=== PATIENT | female | born 1930 | race Caucasian/White ===

== ENCOUNTER 2016-07-20 10:17 | Inpatient (IN) | payer MEDICARE, OTHER ==
[~2016-07-20] VITALS: Ht 157.5 cm; Wt 116.7 kg
[~2016-07-20 10:17] MED LIST: ACET325T33 PO; ALBU2.5V3 NEB; ASC500 PO; ATOR40TA68 PO; BENZ1LOZ52 MM; BISA10SU58 PR; BUDE1AMP IH; BUDE6HFA IH; CEPH-443 PO; CRAN450T7 PO; DOCU-159 PO; FLUC100T PO; FURO40TA4 PO; GABA300C PO; HYDR-842 PO; IPRA3AMP IH; LAMO100T83 PO; LANT3I SC; LEVE-5 PO; LORA-186 PO; MAGN400O4 PO; MAGN400T28 PO; METF500T4 PO; METO50TA16 PO; NOV SC; NYST30PO5 TOP; ONDA4TAB8 PO; PANT40TA3 PO; POLY15DR42 BOTH EYES; RTATR NEB; SERT25TA PO; TRAM-40 PO; UDROBDM PO; WARF2TAB PO
--- NOTE | 2016-07-20 10:35 | ERA ---
ER Documentation Chief Complaint Date/Time DATE: 07/20/16 TIME: 10:32 Chief Complaint SOB SINCE WEDNESDAY HPI 85-year-old female with a history of coronary artery disease, COPD, RAVIN, diabetes, CHF, hypertension, A. fib, epilepsy, CKD presenting to the ER with complaints of worsening shortness of breath and bilateral lower extremity edema for 4 days. Her daughter noticed that she was very short of breath, more than usual, so she brought her here for evaluation. Patient denies any associated chest pain, fever, chill. She does have an associated cough. ROS All systems reviewed and are negative except as per history of present illness. Medications Home Meds Reported Medications Gabapentin* (Gabapentin*) 400 Mg Capsule, 400 MG PO BID, #90 CAP 07/20/16 Metoprolol Tartrate* (Lopressor*) 50 Mg Tab, 50 MG PO BID, #60 TAB 07/20/16 Zinc Sulfate* (Zinc Sulfate*) 220 Mg Tablet, 220 MG PO DAILY, TAB 07/20/16 Phenazopyridine Hcl* (Phenazopyridine Hcl*) 200 Mg Tablet, 200 MG PO BID Y for PELVIC PAIN, TAB 07/20/16 Insulin Aspart* (Novolog Insulin Pen*) 100 Unit/Ml Soln, 10 UNIT SC WITH MEALS, EA 07/20/16 Hydrocodone/Acetaminophen (Argyle 5-325 Tablet) 1 Each Tablet, 1 EACH PO Q6 Y for SEVERE PAIN LEVEL 7-10, TAB 07/20/16 Nitroglycerin* (Nitrostat*) 0.4 Mg Tab.subl, 0.4 MG SL Q5MIN Y for CHEST PAIN, BOTTLE 07/20/16 Multivitamins* (Theragran*) 1 Tab Tab, 1 TAB PO DAILY, TAB 07/20/16 Losartan Potassium* (Losartan Potassium*) 25 Mg Tablet, 25 MG PO BID, TAB HOLD IF SBP BELOW 110 07/20/16 Insulin Detemir (Levemir) 100 Unit/1 Ml Vial, 30 UNIT SC QHS, VIAL 07/20/16 Salmeterol Xinaf/Fluticasone* (Advair*) 250-50 Diskus Inhaler, 1 INH INHALATION BID, #1 INHALER 07/20/16 Aspirin (Low Dose Aspirin) 81 Mg Tablet.dr, 81 MG PO DAILY, #30 TAB 07/20/16 Tramadol Hcl* (Ultram*) 50 Mg Tablet, 50 MG PO Q6H Y for PAIN, TAB 07/20/16 Ascorbic Acid (Vitamin C) 500 Mg Tab, 500 MG PO DAILY, TAB 01/03/15 Acetaminophen* (Tylenol*) 325 Mg Tablet, 650 MG PO Q4H Y for MILD PAIN LEVEL 1-3 , TAB 01/03/15 Acetaminophen* (Tylenol*) 325 Mg Tablet, 650 MG PO Q4H Y for PAIN AND OR ELEVATED TEMP, TAB 01/03/15 Pantoprazole* (Protonix*) 40 Mg Tablet.dr, 40 MG PO BID, TAB 01/03/15 Magnesium Hydroxide* (Milk Of Magnesia*) 400 Mg/5 Ml Oral.susp, 30 ML PO DAILY Y for CONSTIPATION, ML 01/03/15 Magnesium Oxide* (Magnesium Oxide*) 400 Mg Tablet, 400 MG PO BID, TAB 01/03/15 Furosemide* (Furosemide*) 40 Mg Tablet, 40 MG PO DAILY, TAB 01/03/15 Insulin Glargine* (Lantus*) 100 Unit/Ml Soln, 10 UNIT SC QHS, EA 01/03/15 Levetiracetam* (Keppra*) 500 Mg Tablet, 375 MG PO BID, TAB 01/03/15 Ipratropium-Albuterol (Ipratropium-Albuterol) 0.5-3 Mg/3 Ml Ampul.neb, 3 ML IH Q4 Y for WHEEZING, EA 01/03/15 Docusate Sodium* (Docusate Sodium*) 100 Mg Capsule, 200 MG PO QHS Y for CONSTIPATION, CAP 01/03/15 Cranberry Fruit (CRANBERRY) 450 Mg Tablet, 900 MG PO BID 01/03/15 Benzocaine/Menthol* (Cepacol* Sore Throat Lozenges) 1 Each Lozenge, 1 EACH MM Q4 Y for SORE THROAT, LOZENGE 01/03/15 Atorvastatin* (Atorvastatin*) 40 Mg Tablet, 40 MG PO HS, TAB 01/03/15 Hydroxyzine Hcl* (Atarax*) 25 Mg Tab, 25 MG PO TID Y for ITCHING, TAB 01/03/15 Artificial Tears* (Artificial Tears* Ophth) 15 ml Opht, 1 DROP BOTH EYES DAILY Y for DRY EYES, EA 01/03/15 Discontinued Reported Medications Sertraline Hcl* (Zoloft*) 25 Mg Tablet, 75 MG PO QAM, TAB 01/03/15 Ondansetron Hcl* (Zofran*) 4 Mg Tablet, 4 MG PO Q6H Y for NAUSEA AND OR VOMITING , TAB 01/03/15 Tramadol Hcl* (Ultram*) 50 Mg Tablet, 50 MG PO BID Y for PAIN, TAB 01/03/15 Budesonide-Formoterol Fumarate* (Symbicort*) 160-4.5 Hfa.aer.ad, 2 PUFF IH BID, INH RINSE MOUTH AND SPIT AFTER EACH USE 01/03/15 Guaifenesin-Dextromethorphan* (Robitussin* DM) 100MG/10MG/5ML Syrup, 5 ML PO Q4 Y for COUGH, ML 01/03/15 Budesonide* (Pulmicort*) 1 Mg/2 Ml Ampul.neb, 1 MG IH BID Y for COPD, EA 01/03/15 Insulin Aspart* (Novolog Insulin Vial*) 100 U/Ml Vial, 5 UNIT SC TID, VIAL 01/03/15 Gabapentin* (Neurontin*) 300 Mg Capsule, 300 MG PO BID, CAP 01/03/15 Metoprolol Succinate* (Toprol XL*) 50 Mg Tab.er.24h, 50 MG PO BID, TAB 01/03/15 Metformin* (Glucophage*) 500 Mg Tab, 500 MG PO BID, TAB 01/03/15 Insulin Glargine* (Lantus*) 100 Unit/Ml Soln, 12 UNIT SC QAM, EA 01/03/15 Lamotrigine* (Lamictal*) 100 Mg Tablet, 50 MG PO BID, TAB 01/03/15 Bisacodyl* (Dulcolax*) 10 Mg/Supp.rect Supp.rect, 10 MG OK DAILY, SUPP.RECT IF MOM IS INEFFECTIVE 01/03/15 Warfarin Sodium* (Coumadin*) 2 Mg Tablet, 2 MG PO QPM, TAB 01/03/15 Loratadine* (Claritin*) 10 Mg Tablet, 10 MG PO DAILY, TAB 01/03/15 Ipratropium [place]* (Atrovent*) 0.5 Mg/2.5 Ml Neb, 0.5 MG NEB Q4H Y for WHEEZING AND SOB, EA 01/03/15 Albuterol Sulfate* (Albuterol Sulfate* Neb) 0.083%-3 Ml Neb, 2.5 MG NEB Q4 Y for WHEEZING AND SOB, EA 01/03/15 Discontinued Scripts Fluconazole* (Diflucan*) 100 Mg Tab, 100 MG PO DAILY for 7 Days Prov:ESPERANZA GARCIA TREATING MACHINE OPERATOR 01/08/15 Cephalexin* (Keflex*) 500 Mg Cap, 500 MG PO Q8 for 4 Days Prov:ESPERANZA GARCIA TREATING MACHINE OPERATOR 01/08/15 Nystatin* (Nystop* Powder) 1 Applic Powder, 1 APPLIC TOP BID for 7 Days Prov:ESPERANZA GARCIA TREATING MACHINE OPERATOR 01/08/15 Allergies Allergies: Coded Allergies: hydrocodone (Verified Allergy, Unknown, 01/03/15) PMhx/Soc History of Surgery: Yes (refer to EMR) Anesthesia Reaction: No Hx Neurological Disorder: No Hx Respiratory Disorders: Yes (COPD) Hx Cardiac Disorders: Yes (CHF) Hx Psychiatric Problems: No Hx Miscellaneous Medical Probl: Yes (refer to EMR) Hx Alcohol Use: No Hx Substance Use: No Hx Tobacco Use: No FmHx Family History: No diabetes Physical Exam Vitals Vital Signs Date Time Temp Pulse Resp B/P Pulse Ox O2 Delivery O2 Flow Rate FiO2 07/20/16 14:02 78 18 124/56 100 Nasal Cannula 2.0 07/20/16 12:17 68 21 99 Nasal Cannula 1.0 07/20/16 12:17 99 1.0 07/20/16 10:57 Nasal Cannula 2 07/20/16 10:22 98.1 69 20 114/62 98 Physical Exam Const: No significant distress, somewhat short of breath Head: Atraumatic Eyes: Normal Conjunctiva ENT: Normal External Ears, Nose and Mouth. Neck: Full range of motion..~ No meningismus. Resp: No rales, bilateral breath sounds present, expiratory wheezing in the lower lung hester Cardio: Regular rate and rhythm, no murmurs Abd: Soft, non tender, non distended. Normal bowel sounds Skin: No petechiae or rashes Back: No midline or flank tenderness Ext: No cyanosis, 3+ bilateral lower extremity pitting edema Neur: Awake and alert Psych: Normal Mood and Affect Result Diagram: 07/20/16 1050 07/20/16 1050 Results 24 hrs Laboratory Tests Test 07/20/16 10:45 07/20/16 10:50 Blood Gas Specimen Source Blood arterial Arterial Blood Date Drawn 07/20/2016 11:30:44 AM Arterial Blood pH (Temp corrected) 7.432 Arterial Blood pCO2 (Temp correct) 52.9mmhg Arterial Blood pO2 (Temp corrected) 92.8mmHG Arterial Blood HCO3 34.5mmol/L Arterial Blood Base Excess 9.1mmol/L Arterial Blood Oxygen Saturation 96.7mmHG Dameon Test ACCEPTAB Arterial Blood Gas Puncture Site Left Radial Arterial Blood Carboxyhemoglobin 3.1% Arterial Blood Methemoglobin 0.2% Blood Gas A-a O2 Differential 15.4mmHg Oxyhemoglobin Percent 93.5% Total Hemoglobin 8.8g/dl Blood Gas Temperature 37.0C Blood Gas Modality NASAL CANNULA FiO2 24.0% Blood Gas Notified Whom JLD Blood Gas Notified Time 07/20/2016 11:39:32 AM White Blood Count 7.310^3/ul Red Blood Count 2.9610^6/ul Hemoglobin 8.6g/dl Hematocrit 28.6% Mean Corpuscular Volume 96.6fl Mean Corpuscular Hemoglobin 29.1pg Mean Corpuscular Hemoglobin Concent 30.1g/dl Red Cell Distribution Width 15.9% Platelet Count 80390^3/UL Mean Platelet Volume 10.1fl Neutrophils % 67.8% Lymphocytes % 19.7% Monocytes % 5.9% Eosinophils % 5.8% Basophils % 0.4% Nucleated Red Blood Cells % 0.0/100WBC Neutrophils # 4.910^3/ul Lymphocytes # 1.410^3/ul Monocytes # 0.410^3/ul Eosinophils # 0.410^3/ul Basophils # 0.010^3/ul Nucleated Red Blood Cells # 0.010^3/ul Prothrombin Time 23.2Sec Prothrombin Time Ratio 1.8 INR International Normalized Ratio 2.04 Activated Partial Thromboplast Time 45.1Sec Sodium Level 140mmol/L Potassium Level 3.6mmol/L Chloride Level 97mmol/L Carbon Dioxide Level 34mmol/L Anion Gap 13 Blood Urea Nitrogen 34mg/dl Creatinine 0.96mg/dl Glucose Level 104mg/dl Calcium Level 9.2mg/dl Total Bilirubin 0.7mg/dl Direct Bilirubin 0.00mg/dl Indirect Bilirubin 0.7mg/dl Aspartate Amino Transf (AST/SGOT) 19IU/L Alanine Aminotransferase (ALT/SGPT) 20IU/L Alkaline Phosphatase 94IU/L Troponin I 0.019ng/ml B-Type Natriuretic Peptide 4270PG/ML Total Protein 7.0g/dl Albumin 3.4g/dl Globulin 3.60g/dl Albumin/Globulin Ratio 0.94 Current Medications Medications (Trade) Dose Ordered Sig/Halley Route PRN Reason Start Time Stop Time Status Last Admin Dose Admin Albuterol (Proventil 0.083% (Neb)) 5 mg ONCE STAT INH 07/20/16 10:45 07/20/16 10:47 DC 07/20/16 11:31 Furosemide (Lasix) 80 mg ONCE STAT IV 07/20/16 10:45 07/20/16 10:47 DC Furosemide (Lasix) 80 mg ONCE STAT IV 07/20/16 12:21 07/20/16 12:22 DC 07/20/16 12:28 Diphenhydramine HCl (Benadryl) 25 mg ONCE ONCE PO 07/20/16 14:00 07/20/16 14:01 DC 07/20/16 13:59 Ondansetron HCl (Zofran Inj) 4 mg ER BRIDGE PRN IV NAUSEA AND/OR VOMITING 07/20/16 14:30 07/21/16 14:29 Acetaminophen (Tylenol Tab) 650 mg ER BRIDGE PRN PO MILD PAIN/FEVER 07/20/16 14:30 07/21/16 14:29 Procedures/MDM EMERGENT LABS AND DIAGNOSTIC STUDIES: Lab Results above were reviewed and interpreted by me. Elevated BUN, anemia, elevated BNP 12-lead EKG was interpreted by Kyara Davis MD: A flutter with variable block with normal rate Normal axis Normal intervals No acute ST or T wave changes suggestive of acute ischemia or STEMI. Radiology Results as interpreted by Radiology below were reviewed by Archana Davis MD: Chest x-ray: IMPRESSION: 1. Cardiomegaly and atherosclerosis. 2. Mild pulmonary edema. Initial Nursing notes reviewed. Previous Medical Records requested via the Electronic Health Record. EMERGENCY DEPARTMENT COURSE / MEDICAL DECISION MAKING: Patient is presenting with worsening shortness of breath and constellation of symptoms concerning for acute decompensated CHF. Vitals were stable. EKG shows no overt evidence of acute ischemia. Low suspicion for acute PE given exam and history. Low suspicion for acute ischemia, but will trend troponin. Given decline in functional status, she will benefit from admission for further diuresis and cardiac evaluation. One dose of Lasix 80 mg IV was given. I spoke with Dr. Pappas, who will admit the patient for further workup and management. Departure Diagnosis: Primary Impression: Acute exacerbation of CHF (congestive heart failure) Qualified Code: I50.9 - Acute on chronic congestive heart failure, unspecified congestive heart failure type Additional Impression: Chronic anemia JOSÉ DAVIS MD Jul 20, 2016 10:35
[2016-07-20] MEDS ORDERED: ALBUTEROL 0.083% (NEB) 2.5 MG/3 ML AMP INH STA (10:45)
[2016-07-20] MEDS ORDERED: FUROSEMIDE 100 MG INJ IV STA (10:45)
[2016-07-20 11:15] LABS: ADD SCAN DIFF NO
[2016-07-20 11:17] LABS: BASOPHILS % 0.4 % (0.0-2.0); EOSINOPHILS # 0.4 10^3/ul (0.0-0.5); EOSINOPHILS % 5.8 % (0.0-7.0); HEMATOCRIT 28.6 % (37.0-47.0); HEMOGLOBIN 8.6 g/dl (12.0-16.0); LYMPHOCYTES # 1.4 10^3/ul (0.8-2.9); LYMPHOCYTES % 19.7 % (15.0-51.0); MEAN CORPUSCULAR HEMOGLOBIN 29.1 pg (29.0-33.0); MEAN CORPUSCULAR HGB CONC 30.1 g/dl (32.0-37.0); MEAN CORPUSCULAR VOLUME 96.6 fl (82.0-101.0); MEAN PLATELET VOLUME 10.1 fl (7.4-10.4); MONOCYTE # 0.4 10^3/ul (0.3-0.9); MONOCYTES % 5.9 % (0.0-11.0); NEUTROPHIL # 4.9 10^3/ul (1.6-7.5); NEUTROPHILS % 67.8 % (39.0-77.0); PLATELET COUNT 200 10^3/UL (140-415); RED BLOOD COUNT 2.96 10^6/ul (4.20-5.40); RED CELL DISTRIBUTION WIDTH 15.9 % (11.5-14.5); WHITE BLOOD COUNT 7.3 10^3/ul (4.8-10.8)
[2016-07-20 11:29] LABS: ALBUMIN 3.4 g/dl (3.3-4.9); POTASSIUM 3.6 mmol/L (3.5-5.1)
[2016-07-20] MEDS ORDERED: TRAM-40 PO (11:29)
[2016-07-20 11:30] LABS: INR 2.04; PROTIME 23.2 Sec (12.2-14.2); PT RATIO 1.8
[2016-07-20 11:31] LABS: CREATININE 0.96 mg/dl (0.44-1.00); PARTIAL THROMBOPLASTIN TIME 45.1 Sec (25.0-35.0)
[2016-07-20] MEDS ORDERED: ASPI-664 PO (11:31)
[2016-07-20 11:32] LABS: ALBUMIN/GLOBULIN RATIO 0.94; BILIRUBIN,INDIRECT 0.7 mg/dl (0-1.1); BILIRUBIN,TOTAL 0.7 mg/dl (0.2-1.3); CALCIUM 9.2 mg/dl (8.4-10.2)
[2016-07-20] MEDS ORDERED: LEVEM SC (11:32)
[2016-07-20] MEDS ORDERED: ADV25050 INHALATION (11:32)
[2016-07-20] MEDS ORDERED: LOSA25TA5 PO (11:33)
[2016-07-20] MEDS ORDERED: MULTI PO (11:34)
[2016-07-20] MEDS ORDERED: NIT4 SL (11:34)
[2016-07-20] MEDS ORDERED: HYDR-906 PO (11:35)
[2016-07-20] MEDS ORDERED: NOVO3I SC (11:36)
--- NOTE | 2016-07-20 11:38 | RADRPT ---
PROCEDURE: XR Chest. CLINICAL INDICATION: Shortness of breath. TECHNIQUE: Single frontal view. COMPARISON: 01/03/2015. FINDINGS: There is mild interstitial disease bilaterally consistent with pulmonary edema. The lungs are other gregory clear with no focal abnormality. The heart is enlarged. There is calcification in the aorta consistent with atherosclerosis. There is no pleural effusion. There is no pneumothorax. IMPRESSION: 1. Cardiomegaly and atherosclerosis. 2. Mild pulmonary edema. RPTAT: QQ .Ok Tellez MD, Date Time Electronically viewed and signed by .Ok Tellez MD, MD on 07/20/2016 11:38 .R/
[2016-07-20 11:39] LABS: AADO2 Arterial 15.4 mmHg (7.0-24.0); Allen Test ACCEPTAB; Arterial Base Excess 9.1 mmol/L (-3.0-3); Arterial COHb 3.1 % (0.0-3.0); Arterial Fraction of Oxyhgb 93.5 % (93.0-99.0); Arterial HCO3 34.5 mmol/L (22.0-26.0); Arterial MetHb 0.2 % (0.0-1.5); Arterial Total Hemglobin 8.8 g/dl (12.0-18.0); MODE NASAL CANNULA
[2016-07-20 11:45] LABS: TROPONIN-I 0.019 ng/ml (0.00-0.12)
[2016-07-20] MEDS ORDERED: ZINC220T PO (11:59)
[2016-07-20] MEDS ORDERED: PHEN-616 PO (11:59)
[2016-07-20] MEDS ORDERED: GABA400C14 PO (12:00)
[2016-07-20] MEDS ORDERED: METO-429 PO (12:00)
[2016-07-20] MEDS ORDERED: FUROSEMIDE 40 MG INJ IV STA (12:21)
[2016-07-20] MEDS ORDERED: DIPHENHYDRAMINE 25 MG CAP PO ONE (14:00)
[2016-07-20] MEDS ORDERED: ONDANSETRON 4 MG INJ IV PRN ×2 (14:30→19:00)
[2016-07-20] MEDS ORDERED: ACETAMINOPHEN 325 MG TAB PO PRN (14:30)
[2016-07-20 16:09] VITALS: Ht 157.5 cm; Wt 116.7 kg
[2016-07-20 16:24] VITALS: PULSE 89
[2016-07-20] MEDS ORDERED: GLUCOSE GEL 15 GRAM TUBE PO PRN (17:00)
[2016-07-20] MEDS: ALBUTEROL/IPRATROPIUM (NEB) 3 ML AMP HHN SCH ×2 (17:00→20:05)
[2016-07-20] MEDS ORDERED: DEXTROSE 50% 50 ML SYRINGE IV PRN ×2 (17:00)
[2016-07-20] MEDS ORDERED: GLUCOSE GEL 15 GRAM TUBE BUCCAL PRN (17:00)
[2016-07-20] MEDS ORDERED: DOCUSATE SODIUM 100 MG CAP PO PRN (17:00)
[2016-07-20] MEDS ORDERED: NACL 0.9% 3 ML SYG IV SCH (17:00)
[2016-07-20] MEDS ORDERED: ARTIFICIAL TEARS 15 ML OPH BOTH EYES PRN (17:00)
[2016-07-20] MEDS ORDERED: ALBUTEROL/IPRATROPIUM (NEB) 3 ML AMP HHN PRN (17:00)
[2016-07-20] MEDS ORDERED: GLUCAGON 1 MG INJ IM PRN (17:00)
[2016-07-20] MEDS ORDERED: WARFARIN 3 MG TAB PO SCH (17:30)
[2016-07-20] MEDS ORDERED: VANCOMYCIN IV PER PHARMACY XX SCH (17:30)
[2016-07-20] MEDS ORDERED: hydrALAzine 20 MG INJ IV PRN (17:30)
[2016-07-20] MEDS ORDERED: VANCOMYCIN 2 GM in SOD CHLORIDE 0.9% 500 ML IVPB SCH (18:30)
[2016-07-20] MEDS ORDERED: BARIUM SULF 2% 450 ML BTL (BERRY SMOOTHIE) PO ONE (18:30)
[2016-07-20] MEDS: INSULIN ASPART [NOVOLOG] 3 ML PEN SC SCH ×2 (18:40→20:34)
[2016-07-20] MEDS: morphine 2 MG INJ IV PRN (18:44)
--- NOTE | 2016-07-20 18:53 | RADRPT ---
PROCEDURE: Ultrasound of the bilateral lower extremity venous system. CLINICAL INDICATION: Bilateral leg pain and swelling, deep venous thrombosis TECHNIQUE: See scale with and without compression, color doppler, spectral doppler of the venous system of the bilateral lower extremities was performed. Venous augmentation maneuvers were utilized . COMPARISON: No prior studies are available for comparison. FINDINGS: RIGHT: Common femoral vein: Patent. Femoral vein: Patent. Popliteal vein: Patent. Calf veins: Patent. No soft tissue abnormalities are identified. LEFT: Common femoral vein: Patent. Femoral vein: Patent. Popliteal vein: Patent. Calf veins: Not visualized. No soft tissue abnormalities are identified. IMPRESSION: No evidence of a deep vein thrombosis within the bilateral lower extremities. RPTAT: AADD .Darrick Huitron MD, Date Time Electronically viewed and signed by .Darrick Huitron MD, on 07/20/2016 18:52 .B/
[2016-07-20 19:25] LABS: ADD UMIC YES; URINE BILIRUBIN (Dip) NEGATIVE (NEGATIVE); URINE BLOOD (Dip) NEGATIVE (NEGATIVE); URINE COLOR YELLOW (YELLOW); URINE GLUCOSE (Dip) NEGATIVE (NEGATIVE); URINE KETONES (Dip) NEGATIVE (NEGATIVE); URINE LEUKOCYTE ESTERASE (Dip) NEGATIVE (NEGATIVE); URINE NITRITE (Dip) POSITIVE (NEGATIVE); URINE TOTAL PROTEIN (Dip) NEGATIVE (NEGATIVE); URINE UROBILINOGEN (Dip) 0.2 E.U./dL (0.1-1.0)
--- NOTE | 2016-07-20 19:31 | HP ---
DATE OF ADMISSION: 07/20/2016 TIME OF EVALUATION: 1700 REASON FOR ADMISSION: Dyspnea. CONSULTANTS: 1. Dr. Mike Rosales, Cardiology 2. Dr. Hua De La Garza, Pulmonary HISTORY OF PRESENT ILLNESS: This is an 85-year-old female with past medical history of COPD, obstructive sleep apnea, atrial fibrillation on anticoagulation, essential hypertension, type 2 diabetes mellitus, seizure disorder, stroke, dyslipidemia and obesity who came to the emergency room with chief complaint of dyspnea, bilateral lower extremity edema as well as generalized skin rashes with associated pruritus. The patient denied any fevers. She was complaining of a greenish productive cough. The patient lives in an assisted living facility. She denied any dysuria or hematuria. She denied any diarrhea. The patient was complaining of bilateral lower extremity pain. The patient denied any chest pain. The patient is not the best historian. In the emergency room, the patient underwent a chest x-ray that showed cardiomegaly with mild pulmonary edema. The patient also underwent a blood gas on low-flow O2 that showed evidence of minimal CO2 retention with a normal pH. In the emergency room, the patient was treated with a single dose of IV Lasix 80 mg along with inhaled bronchodilators. PAST MEDICAL HISTORY: Essential hypertension, type 2 diabetes mellitus, COPD, stroke, obesity, atrial fibrillation, obesity with possible underlying obstructive sleep apnea, seizure disorder. PAST SURGICAL HISTORY: Bilateral knee replacement. HOME MEDICATIONS: 1. Albuterol 2.5 mg nebulization q.4 hours p.r.n. shortness of breath. 2. Artificial tears 1 drop to both eyes p.r.n. daily. 3. Vitamin C 500 mg p.o. daily. 4. Atorvastatin 40 mg p.o. at bedtime. 5. Dulcolax 10 mg [place] daily p.r.n. constipation. 6. Pulmicort 1 mg inhaled b.i.d. 7. Lasix 40 mg p.o. daily. 8. Gabapentin 300 mg p.o. b.i.d. 9. Atarax 25 mg p.o. t.i.d. p.r.n. itching. 10. Insulin aspart as per sliding scale. 11. Lantus insulin subcutaneously at bedtime 10 units. 12. Lantus insulin subcutaneously 12 units in the morning. 13. Lamotrigine 50 mg p.o. b.i.d. 14. Keppra 375 mg p.o. b.i.d. 15. Metformin 500 mg p.o. b.i.d. 16. Toprol-XL 50 mg p.o. daily. 17. Protonix 40 mg p.o. b.i.d. 18. Sertraline 75 mg p.o. daily. 19. Warfarin 25 mg p.o. q.p.m. ALLERGIES: HYDROCODONE. SOCIAL HISTORY: The patient lives at [facility]. No recent history of tobacco, alcohol or illicit drug use. REVIEW OF SYSTEMS: A 12-point review of systems was made, and review of systems is negative other than what is mentioned in the history of present illness. PHYSICAL EXAMINATION: VITAL SIGNS: Temperature 98.1, pulse rate 89, respiratory rate 18, blood pressure 124/56, oxygen saturation 100% on low-flow O2. GENERAL: This is a morbidly obese female lying in bed in mild to moderate respiratory distress. HEENT: Normocephalic and atraumatic. Eyes: Anicteric sclerae. Conjunctivae clear. ENT: Nasal septum is midline. Oral mucosa is dry. NECK: Supple. No JVD noticed. RESPIRATORY: Bilaterally diminished breath sounds. Use of accessory muscles of respiration. Bilateral wheezing. CARDIAC: Irregularly irregular rhythm. Rate controlled. Systolic murmur. ABDOMEN: Soft. Obese. Bowel sounds hypoactive in all 4 quadrants. GENITOURINARY: Deferred. EXTREMITIES: Bilateral lower extremity 3+ to 4+ pitting edema. Pedal pulses nonpalpable. Left penaloza area erythema with multiple wounds and tenderness to touch. NEUROLOGIC: The patient is awake, alert and oriented. Cranial nerves are grossly intact. Primarily Divehi speaking. SKIN: Multiple maculopapular lesions with evidence of scratching of the skin. LABORATORY AND DIAGNOSTIC DATA: WBC 7.3, hemoglobin 8.6, hematocrit 28.6, platelet count 200. Sodium 140, potassium 3.6, chloride 97, carbon dioxide 34, anion gap 13, BUN 34, creatinine 0.96, glucose 104, calcium 9.2. BNP 4270. Troponin 0.019. PT 23.2, INR 2.04, APTT 45.1. Blood gas that was done on low- flow O2: pH 7.432, pCO2 52.9, CO2 92.8, bicarbonate 34.5, oxygen saturation 96.7, base excess 9.1. Chest x-ray: Cardiomegaly and atherosclerosis. Mild pulmonary edema. Twelve-lead EKG: Atrial flutter. IMPRESSION: This is an 85-year-old female with multiple comorbidities who came to the emergency room with chief complaint of dyspnea, bilateral lower extremity edema, anf bilateral lower extremity pain who will be admitted here for further treatment and evaluation. ASSESSMENT AND PLAN: 1. Acute respiratory failure. Hypoxic and hypercapnic. Most probably a combination of congestive heart failure and chronic obstructive pulmonary disease. The patient will be maintained on inhaled bronchodilators. The patient will be maintained on supplemental oxygen. Cardiology and pulmonology consult will be obtained. 2. Possible underlying congestive heart failure exacerbation. Systolic versus diastolic dysfunction. The patient will be adequately diuresed. A 2D echocardiogram will be obtained to evaluate the left ventricular ejection fraction to evaluate for any underlying wall motion abnormalities. 3. Left lower extremity cellulitis. The patient will be started on empiric antibiotics. Pancultures will be obtained. 4. Type 2 diabetes mellitus. The patient will be started on sliding scale insulin along with Lantus insulin and premeal insulin. The patient will also be started on NPH insulin along with Solu-Medrol since this can cause hyperglycemia. 5. Atrial fibrillation. The patient's heart rate is controlled. The patient' s cardiac medications will be resumed. The patient is already anticoagulated with a therapeutic INR. The patient's warfarin will be resumed. 6. Essential hypertension. The patient's home antihypertensives will be resumed. The patient will also be started on p.r.n. antihypertensives for any systolic blood pressure readings greater than 160 mmHg. 7. Diabetic neuropathy. The patient was started on gabapentin. 8. Generalized skin rashes. The patient verbalized that these skin rashes have been going on for the past 1 year or so. A skin biopsy will be obtained to evaluate for any underlying scabies. 9. Chronic obstructive pulmonary disease with current evidence of exacerbation. The patient will be maintained on inhaled bronchodilators including maintenance inhalers. The patient was started on tapering dose of IV steroids. Pulmonology consult will be obtained. 10. Seizure disorder. The patient will be resumed on her anti-seizure medications. Plan. The patient will be admitted to inpatient telemetry floor. The patient will be started on a carbohydrate controlled, low-cholesterol diet. The patient will be maintained on anticoagulation with warfarin. The patient will be started on gastrointestinal prophylaxis. The patient will remain a CHEMICAL CODE as per conversation with the patient's DPXOCHILT Briana at [phone]. Activities will be with assist. A physical therapy evaluation will be ordered. The rest of the patient's management will be based on the clinical course, the results of diagnostic studies, and inputs from consultants. Based on the patient's clinical presentation, she most probably requires at least a 2-midnights' stay for further management and evaluation of her clinical presentation. The case and management of this patient was fully discussed with Dr. Madden. ESPERANZA MADDEN MD, AM/GINGER Conf#: [id number] DID#: [id number] MTDD
[2016-07-20 19:33] LABS: BACTERIA,URINE MANY; URINE RBCS 0-2 /HPF (0)
[2016-07-20 20:00] VITALS: BP 135/71; RESP 18
[2016-07-20] MEDS ORDERED: INSULIN GLARGINE [LANtus] 3 ML PEN SC SCH (20:00)
[2016-07-20 20:17] VITALS: PULSE 90
[2016-07-20] MEDS: NPH, HUMAN INSULIN ISOPHANE 3ML VIAL SC SCH (20:24)
[2016-07-20] MEDS: GABAPENTIN 400 MG CAP PO SCH (20:37)
[2016-07-20] MEDS: PANTOPRAZOLE (EC) 40 MG TAB PO SCH (20:37)
[2016-07-20] MEDS: LOSARTAN 25 MG TAB PO SCH (20:37)
[2016-07-20] MEDS: ATORVASTATIN 40 MG TAB PO SCH (20:37)
[2016-07-20] MEDS: LEVETIRACETAM 500 MG TAB PO SCH (20:37)
[2016-07-20] MEDS: DIPHENHYDRAMINE 50 MG INJ IV SCH (20:38)
[2016-07-20] MEDS: METHYLPREDNISOLONE 40 MG INJ IV SCH (20:38)
[2016-07-20] MEDS: SALMETEROL/FLUTICASONE 250/50 INHA INH SCH (20:38)
[2016-07-20] MEDS: FAMOTIDINE 20 MG INJ IV SCH (20:38)
[2016-07-20] MEDS: METOPROLOL 50 MG TAB PO SCH (20:38)
--- NOTE | 2016-07-20 20:58 | CONS ---
DATE OF ADMISSION: 07/20/2016 DATE OF CONSULTATION: 07/20/2016 REFERRING PROVIDER: Forrest Brown NP REASON FOR CONSULTATION: Atrial fibrillation. CHIEF COMPLAINT: Leg edema, shortness of breath. HISTORY OF PRESENT ILLNESS: Thank you for this referral. History was obtained from the patient, di scussion with Forrest Brown, review of the old chart. The patient is a poor historian. This is a p lenidhi 85-year-old female with history of COPD, obstructive sleep apnea, diabetes, hypertension, po ssible congestive heart failure, atrial fibrillation who came to emergency room with above complaint . The patient is a poor historian and cannot describe well, but to me she complains that she has kidd d a rash, but it has been going on for 2 years. Also her leg has been swelling up, has been more er ythematous. Also, she has mild shortness of breath when she lies down. Denies any chest pain or pr essure to me. Denies any palpitation to me. Noted to be in atrial fibrillation. Review of the old chart, the patient also has been in atrial fibrillation before. PAST MEDICAL HISTORY: Mostly obtained from the review of the old chart. History of atrial fibrilla tion, hypertension, dyslipidemia, diabetes, anemia, history of CVA, history of seizure disorder. SOCIAL HISTORY: Does not smoke or drink. FAMILY HISTORY: Denies ____. ALLERGIES: HYDROCODONE. MEDICATIONS AT HOME: She does not remember. Otherwise, per review of the old chart as mentioned an d recorded and the medical reconciliation sheet. The patient also currently taking Coumadin, does n ot know the dosage. REVIEW OF SYSTEMS: As above mentioned, she does have knee pain, does not walk much. PHYSICAL EXAMINATION: VITAL SIGNS: Temperature 98.1, heart rate of 89, blood pressure 120/56, respiration rate of 18, sat urating 100%. HEENT: Normocephalic, atraumatic. Obese female. Pupils are equal. CARDIOVASCULAR: Irregularly irregular. Systolic murmur. PULMONARY: With no wheezes heard anteriorly. Minimal rhonchi at the base. GASTROINTESTINAL: Obese, soft, nontender. EXTREMITIES: Positive bilateral lower extremity edema 3 to 4+ with erythema and multiple ulceration s mostly on the left leg more than the right. GASTROINTESTINAL: Soft, nontender. PSYCHIATRIC: Calm, pleasant. NEUROLOGIC: Awake, alert x3, nonfocal. LABORATORY: WBC of 7.3, hemoglobin 8.6, platelets of 200, MCV is 96.6. Sodium 140, potassium 3.6, BUN of 34, creatinine 0.96, glucose 104. ProBNP of 4270. EKG: Atrial fibrillation. Chest x-ray shows mild pulmonary vascular congestion. ASSESSMENT AND PLAN: 1. Congestive heart failure, most likely diastolic dysfunction. 2. Atrial fibrillation, chronic, on anticoagulation with INR therapeutic currently at 2. 3. Hypertension. 4. Diabetes. 5. Dyslipidemia. 6. Morbid obesity. 7. Lower extremity cellulitis. RECOMMENDATIONS: Coumadin will be continued and adjusted as per internal medicine to goal INR of 2 to 3. Aspirin will be stopped since the patient is already on Coumadin. Daily PT/INR to be checked and monitor. ____ has been ordered. The patient's heart rate currently is stable on the current r egimen of metoprolol, which I will continue. If heart rate is increased, we can add digoxin to aid as well. For now, however, is stable. Consider pulmonary consultation as well. Monitor on telemet ry. ____ as per internal medicine. Dictated By: ENEDINA GARCES MD AV/GINGER Conf#: [id number] DID#: [id number] CC: FORREST BROWN NP; ALEK MADDEN MD;*[facility]*
[2016-07-20] MEDS: CEFEPIME 2GM/50 ML (PMX) 50 ML IVPB SCH (21:54)
[2016-07-21] VITALS (12 sets, daily range): BP systolic 113–145; BP diastolic 55–89; PULSE 84–95; RESP 16–20
[2016-07-21] MEDS: ACCU-CHEK XX SCH (01:43)
[2016-07-21 07:54] LABS: ADD SCAN DIFF NO
[2016-07-21 07:58] LABS: BASOPHILS % 0.3 % (0.0-2.0); EOSINOPHILS % 0.2 % (0.0-7.0); HEMATOCRIT 27.5 % (37.0-47.0); HEMOGLOBIN 8.3 g/dl (12.0-16.0); LYMPHOCYTES # 0.7 10^3/ul (0.8-2.9); LYMPHOCYTES % 11.6 % (15.0-51.0); MEAN CORPUSCULAR HEMOGLOBIN 28.7 pg (29.0-33.0); MEAN CORPUSCULAR HGB CONC 30.2 g/dl (32.0-37.0); MEAN CORPUSCULAR VOLUME 95.2 fl (82.0-101.0); MEAN PLATELET VOLUME 10.6 fl (7.4-10.4); MONOCYTE # 0.2 10^3/ul (0.3-0.9); MONOCYTES % 2.4 % (0.0-11.0); NEUTROPHIL # 5.2 10^3/ul (1.6-7.5); NEUTROPHILS % 85.2 % (39.0-77.0); PLATELET COUNT 196 10^3/UL (140-415); RED BLOOD COUNT 2.89 10^6/ul (4.20-5.40); RED CELL DISTRIBUTION WIDTH 15.4 % (11.5-14.5); WHITE BLOOD COUNT 6.1 10^3/ul (4.8-10.8)
[2016-07-21] MEDS: INSULIN ASPART [NOVOLOG] 3 ML PEN SC SCH ×5 (08:05→20:17)
[2016-07-21 08:15] LABS: POTASSIUM 4.4 mmol/L (3.5-5.1)
[2016-07-21 08:17] LABS: INR 1.2; PROTIME 15.3 Sec (12.2-14.2); PT RATIO 1.2
[2016-07-21 08:18] LABS: CREATININE 0.96 mg/dl (0.44-1.00)
[2016-07-21 08:19] LABS: CALCIUM 8.8 mg/dl (8.4-10.2)
[2016-07-21 08:26] LABS: CHOL/HDL RATIO 3.6 RATIO; MAGNESIUM 1.8 mg/dl (1.7-2.5); PHOSPHORUS 4.3 mg/dl (2.5-4.9)
[2016-07-21 08:29] LABS: CK-MB 1.27 ng/ml (0.0-2.4); TROPONIN-I 0.033 ng/ml (0.00-0.12)
[2016-07-21] MEDS: METHYLPREDNISOLONE 40 MG INJ IV SCH ×2 (08:36→20:15)
[2016-07-21] MEDS: DIPHENHYDRAMINE 50 MG INJ IV SCH ×2 (08:36→21:18)
[2016-07-21] MEDS: CEFEPIME 2GM/50 ML (PMX) 50 ML IVPB SCH ×2 (08:37→21:18)
[2016-07-21] MEDS: ZINC SULFATE 220 MG CAP PO SCH (08:37)
[2016-07-21] MEDS: CHOLECALCIFEROL 1,000 UNIT TAB PO SCH (08:37)
[2016-07-21] MEDS: GABAPENTIN 400 MG CAP PO SCH ×2 (08:37→20:49)
[2016-07-21] MEDS: ASCORBIC ACID 500 MG TAB PO SCH (08:37)
[2016-07-21] MEDS: PANTOPRAZOLE (EC) 40 MG TAB PO SCH ×2 (08:37→20:49)
[2016-07-21] MEDS: LEVETIRACETAM 500 MG TAB PO SCH ×2 (08:37→20:50)
[2016-07-21] MEDS: LOSARTAN 25 MG TAB PO SCH ×2 (08:37→20:49)
[2016-07-21] MEDS: METOPROLOL 50 MG TAB PO SCH ×2 (08:38→20:50)
[2016-07-21] MEDS: SALMETEROL/FLUTICASONE 250/50 INHA INH SCH ×2 (08:41→20:50)
[2016-07-21] MEDS: FAMOTIDINE 20 MG INJ IV SCH (08:41)
[2016-07-21] MEDS: NPH, HUMAN INSULIN ISOPHANE 3ML VIAL SC SCH ×3 (08:42→20:54)
[2016-07-21] MEDS ORDERED: ASPIRIN (EC) 81 MG TAB PO SCH (09:00)
[2016-07-21] MEDS ORDERED: FUROSEMIDE 40 MG INJ IV SCH (09:00)
[2016-07-21] MEDS: ALBUTEROL/IPRATROPIUM (NEB) 3 ML AMP HHN SCH ×4 (09:44→21:47)
--- NOTE | 2016-07-21 10:36 | CONS ---
Date/Time of Note Date/Time of Note DATE: 07/21/16 TIME: 10:29 Assessment/Plan Assessment/Plan Additional Assessment/Plan Chest x-ray was reviewed from yesterday which is showing cardio megaly with mild pulmonary edema. Assessment recommendations; 1. Patient admitted for CHF exacerbation and pulmonary edema with significant clinical improvement. 2. Multiple other comorbidities including chronic atrial fibrillation, hypertension, diabetes, depression, anemia, which all appear fairly stable. Continue current treatment. Consultation Date/Type/Reason Admit Date/Time Jul 20, 2016 at 14:10 Date of Consultation: Jul 21, 2016 Type of Consultation: Pulmonary Reason for Consultation Pulmonary consultations requested for evaluation of shortness of breath. History presenting any; patient is a very pleasant 85-year-old lady who was brought into the emergency room yesterday transferred over from senior living with complaints of shortness of breath. Patient was diagnosed with CHF exacerbation and was given Lasix with significant improvement in symptoms. Patient is on a very good historian but was able to give some history by herself. She denies any chest pain, abdominal pain, nausea vomiting. Denies any coughing. Past medical history; 1. Patient with a history of possibly COPD 2. Hyperlipidemia. 3. Hypertension. 4. Diabetes. 5. Status post bilateral total knee replacement. 6. Depression. 7. Chronic atrial ablation. 9. Possibly underlying sleep apnea. 10. Anemia Medications; were reviewed. Allergies; are to hydrocodone. Social history; patient never smoked. Family history; patient is single. Occupational history; noncontributory. Patient resides in a senior living. Review of systems; limited review of system could be obtained. Patient denies any headache, any chest pain, shortness of breath is improved. Denies any cough , any abdominal pain, vomiting. Has good appetite. General exam; elderly woman, awake alert currently in no distress. Maintained on 2 L nasal cannula. Social History Smoking Status: Never smoker Exam/Review of Systems Vital Signs Vitals Vital Signs Date Time Temp Pulse Resp B/P Pulse Ox O2 Delivery O2 Flow Rate FiO2 07/21/16 09:44 122 26 99 Nasal Cannula 2.0 07/21/16 07:08 98.2 134/87 Intake and Output 07/20/16 07/20/16 07/21/16 15:00 23:00 07:00 Intake Total 100 ml Output Total 250 ml 700 ml Balance -150 ml -700 ml Exam HEENT examination; supple neck, JVD difficult to see because of short neck. Patient is edentulous. Has bilateral intraocular lens implants. No neck masses. No thyromegaly. No lymphadenopathy. Chest exam is; diminished but clear vessel. S1-S2 audible, no murmurs. Irregular rhythm. Abdomen exam is; soft, protuberant. Blackness is inverted. No organomegaly. No scars are present. Extremity exam; 2+ pitting edema bilaterally in lower extremities. There are bilateral well-healed knee scars present. KELP OR SEAGRASS GATHERER exam is; patient is awake, alert, cranial nerves are grossly intact there is no focal deficit. Results Result Diagram: 07/21/16 0640 07/21/16 0640 Results 24 hrs Laboratory Tests Test 07/20/16 10:45 07/20/16 10:50 07/20/16 17:18 07/20/16 18:20 Blood Gas Specimen Source Blood arterial Arterial Blood Date Drawn 07/20/2016 11:30:44 AM Arterial Blood pH (Temp corrected) 7.432 Arterial Blood pCO2 (Temp correct) 52.9 H Arterial Blood pO2 (Temp corrected) 92.8 H Arterial Blood HCO3 34.5 H Arterial Blood Base Excess 9.1 H Arterial Blood Oxygen Saturation 96.7 Dameon Test ACCEPTAB Arterial Blood Gas Puncture Site Left Radial Arterial Blood Carboxyhemoglobin 3.1 H Arterial Blood Methemoglobin 0.2 Blood Gas A-a O2 Differential 15.4 Oxyhemoglobin Percent 93.5 Total Hemoglobin 8.8 L Blood Gas Temperature 37.0 Blood Gas Modality NASAL CANNULA FiO2 24.0 Blood Gas Notified Whom JLD Blood Gas Notified Time 07/20/2016 11:39:32 AM White Blood Count 7.3 Red Blood Count 2.96 L Hemoglobin 8.6 L Hematocrit 28.6 L Mean Corpuscular Volume 96.6 Mean Corpuscular Hemoglobin 29.1 Mean Corpuscular Hemoglobin Concent 30.1 L Red Cell Distribution Width 15.9 H Platelet Count 200 Mean Platelet Volume 10.1 # Neutrophils % 67.8 Lymphocytes % 19.7 Monocytes % 5.9 Eosinophils % 5.8 Basophils % 0.4 Nucleated Red Blood Cells % 0.0 Neutrophils # 4.9 Lymphocytes # 1.4 Monocytes # 0.4 Eosinophils # 0.4 Basophils # 0.0 Nucleated Red Blood Cells # 0.0 Prothrombin Time 23.2 H Prothrombin Time Ratio 1.8 INR International Normalized Ratio 2.04 Activated Partial Thromboplast Time 45.1 H Sodium Level 140 Potassium Level 3.6 Chloride Level 97 Carbon Dioxide Level 34 H Anion Gap 13 Blood Urea Nitrogen 34 H Creatinine 0.96 Glucose Level 104 Calcium Level 9.2 Total Bilirubin 0.7 Direct Bilirubin 0.00 Indirect Bilirubin 0.7 Aspartate Amino Transf (AST/SGOT) 19 Alanine Aminotransferase (ALT/SGPT) 20 Alkaline Phosphatase 94 Troponin I 0.019 B-Type Natriuretic Peptide 4270 H Total Protein 7.0 Albumin 3.4 Globulin 3.60 H Albumin/Globulin Ratio 0.94 Bedside Glucose 238 H Hemoglobin A1c 6.3 H Vitamin D 1,25-Dihydroxy 16.1 L Thyroid Stimulating Hormone (TSH) 2.320 Free Thyroxine 1.13 Test 07/20/16 18:50 07/20/16 19:57 07/21/16 01:38 07/21/16 06:40 Urine Color YELLOW Urine Clarity CLEAR Urine pH 6.5 Urine Specific [place] <=1.005 L Urine Ketones NEGATIVE Urine Nitrite POSITIVE H Urine Bilirubin NEGATIVE Urine Urobilinogen 0.2 E.U./dL Urine Leukocyte Esterase NEGATIVE Urine Microscopic RBC 0-2 Urine Microscopic WBC 0-2 Urine Epithelial Cells RARE Urine Bacteria MANY Urine Hemoglobin NEGATIVE Urine Glucose NEGATIVE Urine Total Protein NEGATIVE Bedside Glucose 279 H 375 H White Blood Count 6.1 Red Blood Count 2.89 L Hemoglobin 8.3 L Hematocrit 27.5 L Mean Corpuscular Volume 95.2 Mean Corpuscular Hemoglobin 28.7 L Mean Corpuscular Hemoglobin Concent 30.2 L Red Cell Distribution Width 15.4 H Platelet Count 196 Mean Platelet Volume 10.6 H Neutrophils % 85.2 H Lymphocytes % 11.6 L Monocytes % 2.4 Eosinophils % 0.2 Basophils % 0.3 Nucleated Red Blood Cells % 0.0 Neutrophils # 5.2 Lymphocytes # 0.7 L Monocytes # 0.2 L Eosinophils # 0.0 Basophils # 0.0 Nucleated Red Blood Cells # 0.0 Prothrombin Time 15.3 #H Prothrombin Time Ratio 1.2 INR International Normalized Ratio 1.20 Sodium Level 138 Potassium Level 4.4 Chloride Level 95 L Carbon Dioxide Level 34 H Anion Gap 13 Blood Urea Nitrogen 32 H Creatinine 0.96 Glucose Level 359 #H Calcium Level 8.8 Phosphorus Level 4.3 Magnesium Level 1.8 Creatine Kinase 35 Creatine Kinase Index 3.6 Creatinine Kinase MB (Mass) 1.27 Troponin I 0.033 Triglycerides Level 90 Cholesterol Level 186 LDL Cholesterol, Calculated 117 HDL Cholesterol 51 Cholesterol/HDL Ratio 3.6 Test 07/21/16 07:48 Bedside Glucose 342 H Medications Medications Current Medications Lorazepam (Ativan) 0.5 mg Q6H PRN IV ANXIETY; Start 07/20/16 at 17:00 Eye Lubricant (Artificial Tears Oph) 1 drop DAILY PRN BOTH EYES DRY EYES; Start 07/20/16 at 17:00 Ascorbic Acid (Vitamin C) 500 mg DAILY PO Last administered on 07/21/16 08:37 ; Admin Dose 500 MG; Start 07/21/16 at 09:00 Atorvastatin Calcium (Lipitor) 40 mg HS PO Last administered on 07/20/16 20:37 ; Admin Dose 40 MG; Start 07/20/16 at 21:00 Docusate Sodium (Colace) 200 mg QHS PRN PO CONSTIPATION; Start 07/20/16 at 17: 00 Gabapentin (Neurontin) 400 mg BID PO Last administered on 07/21/16 08:37; Admin Dose 400 MG; Start 07/20/16 at 21:00 Levetiracetam (Keppra) 375 mg BID PO Last administered on 07/21/16 08:37; Admin Dose 375 MG; Start 07/20/16 at 21:00 Losartan Potassium (Cozaar) 25 mg BID PO Last administered on 07/21/16 08:37; Admin Dose 25 MG; Start 07/20/16 at 21:00 Metoprolol Tartrate (Lopressor) 50 mg BID PO Last administered on 07/21/16 08: 38; Admin Dose 50 MG; Start 07/20/16 at 21:00 Pantoprazole (Protonix Tab) 40 mg BID PO Last administered on 07/21/16 08:37; Admin Dose 40 MG; Start 07/20/16 at 21:00 Salmeterol Xinafoate/ Fluticasone (Advair 250/50 Diskus) 1 inh BID INH Last administered on 07/21/16 08:41; Admin Dose 1 INH; Start 07/20/16 at 21:00 Zinc Sulfate (Zinc Sulfate) 220 mg DAILY PO Last administered on 07/21/16 08: 37; Admin Dose 220 MG; Start 07/21/16 at 09:00 Famotidine (Pepcid Iv) 20 mg BID IV Last administered on 07/21/16 08:41; Admin Dose 20 MG; Start 07/20/16 at 21:00 Diphenhydramine HCl (Benadryl) 25 mg Q12H IV Last administered on 07/21/16 08: 36; Admin Dose 25 MG; Start 07/20/16 at 21:00 Insulin Glargine (Lantus) 24 unit DAILY@20 SC Last administered on 07/20/16 20 :24; Admin Dose 24 UNIT; Start 07/20/16 at 20:00 Insulin Human NPH (Humulin N) 10 unit BID@08,20 SC Last administered on 08:42; Admin Dose 10 UNIT; Start 07/20/16 at 20:00 Diagnostic Test (Pha) (Accu-Chek) 1 ea 02 XX ; Start 07/21/16 at 02:00 Miscellaneous Information 1 ea NOTE XX ; Start 07/20/16 at 17:00 Glucose (Glutose) 15 gm Q15M PRN PO DECREASED GLUCOSE; Start 07/20/16 at 17:00 Glucose (Glutose) 22.5 gm Q15M PRN PO DECREASED GLUCOSE; Start 07/20/16 at 17: 00 Dextrose (D50w Syringe) 25 ml Q15M PRN IV DECREASED GLUCOSE; Start 07/20/16 at 17:00 Dextrose (D50w Syringe) 50 ml Q15M PRN IV DECREASED GLUCOSE; Start 07/20/16 at 17:00 Glucagon (Glucagen) 1 mg Q15M PRN IM DECREASED GLUCOSE; Start 07/20/16 at 17:00 Glucose (Glutose) 15 gm Q15M PRN BUCCAL DECREASED GLUCOSE; Start 07/20/16 at 17 :00 Warfarin Sodium (Coumadin) 3 mg DAILY@17 PO Last administered on 07/20/16 18: 36; Admin Dose 3 MG; Start 07/20/16 at 17:30 Methylprednisolone Sodium Succinate (Solu-Medrol) 40 mg BID@08,20 IV Last administered on 07/21/16 08:36; Admin Dose 40 MG; Start 07/20/16 at 20:00 Hydralazine HCl (Apresoline) 10 mg Q6H PRN IV SBP>160; Start 07/20/16 at 17:30 Furosemide 40 mg 40 mg DAILY IV Last administered on 07/21/16 08:36; Admin Dose 40 MG; Start 07/21/16 at 09:00 Cefepime HCl (Maxipime 2gm/50 ml (Pmx)) 50 ml @ 100 mls/hr Q12 IVPB Last administered on 07/21/16 08:37; Admin Dose 100 MLS/HR; Start 07/20/16 at 21:00 Morphine Sulfate (morphine) 2 mg Q4H PRN IV Pain Last administered on 18:44; Admin Dose 2 MG; Start 07/20/16 at 18:30 Ondansetron HCl 4 mg 4 mg Q4H PRN IV NAUSEA AND/OR VOMITING Last administered on 07/20/16 18:57; Admin Dose 4 MG; Start 07/20/16 at 19:00 Vancomycin HCl/ Sodium Chloride (Vancocin/NS) 250 ml @ 83.333 mls/ hr Q24H IVPB ; Start 07/21/16 at 18:30 Cholecalciferol (Vitamin D) 1,000 unit DAILY PO Last administered on 07/21/16 08:37; Admin Dose 1,000 UNIT; Start 07/21/16 at 09:00 SHUKRI WHITE Jul 21, 2016 10:36
--- NOTE | 2016-07-21 12:00 | RADRPT ---
Echocardiogram Report Patient Name: TON MILLAN Gender: Female Date: 1930 Study Date: 21-Jul-2016 Professor Of Apologetics: Rey Law [facility] Location: [id number] Ref. Physician: ESPERANZA GARCIA Quality: Adequate Procedures: Transthoracic echocardiogram with complete 2D, M-Mode, and doppler examination. Indications: Evaluate Left Ventricular function. 2D/M Mode Doppler Measurement Value Normal Ranges Measurement Value Normal Ranges LVIDd 2D 4.8 3.5 - 5.6 cm AV Peak Richard 1.2 m/sec LVIDs 2D 3.8 2.1 - 4.1 cm AV Peak PG 6.0 mmHg FS 2D 20.5 % LVOT Peak Richard 0.8 m/sec LVPWd 2D 1.2 0.6 - 1.1 cm LVOT Peak PG 2.0 mmHg IVSd 2D 1.0 0.6 - 1.1 cm MV E Peak Richard 1.1 m/sec IVS/LVPW 2D 0.9 MV Decel Time 134 msec AoR Diam 2D 2.9 2.0 - 3.7 cm TR Peak Richard 3.8 m/sec LA/Ao 2D 2 0 - 1 TR Peak PG 58.0 mmHg EDV 2D 113.0 cm3 RVSP 73.0 mmHg ESV 2D 57.1 cm3 LA Dimen 2D 5.1 2.3 - 4.0 cm Findings Left Ventricle: Normal left ventricular systolic function. Normal left ventricular cavity size. Mild concentric left ventricular hypertrophy. Ejection fraction is visually estimated at 65 %. Abnormal Diastolic Function. Right Ventricle: Normal right ventricular size. Normal right ventricular systolic function. Left Atrium: There is severe enlargement of left atrium. LA Dimension5.10 cm. Right Atrium: There is mild enlargement of right atrium. Mitral Valve: Mitral valve leaflets appear mildly thickened. Mild mitral annular calcification. Mild mitral valve regurgitation. Aortic Valve: No significant aortic stenosis or insufficiency. Aortic cusps appear mildly calcified. Tricuspid Valve: Normal appearance of the tricuspid valve. Estimated peak PA systolic pressure 73 mmHg. There is moderate tricuspid regurgitation. Pulmonic Valve: Normal pulmonic valve appearance. Pericardium: Normal pericardium with no significant pericardial effusion. Aorta: Normal aortic root. IVC: Dilated IVC without respiratory collapse consistent with elevated right atrial pressure. Conclusions 1.Normal left ventricular systolic function. Normal left ventricular cavity size. Mild concentric left ventricular hypertrophy. Ejection fraction is visually estimated at 65 %. Abnormal Diastolic Function. 2.There is severe enlargement of left atrium. LA Dimension5.10 cm. 3.Mitral valve leaflets appear mildly thickened. Mild mitral annular calcification. Mild mitral valve regurgitation. 4.No significant aortic stenosis or insufficiency. Aortic cusps appear mildly calcified. 5.Normal appearance of the tricuspid valve. Estimated peak PA systolic pressure 73 mmHg. There is moderate tricuspid regurgitation. 6.Dilated IVC without respiratory collapse consistent with elevated right atrial pressure. Electronically Signed By: Mike Rosales 21-Jul-2016 12:00: Patient Name: TON MILLAN Study Date: 21-Jul-2016 [id number]
--- NOTE | 2016-07-21 15:46 | RADRPT ---
PROCEDURE: CT Abdomen and Pelvis without contrast. CLINICAL INDICATION: Abdominal and pelvic pain. TECHNIQUE: CT scan of the abdomen and pelvis without contrast was performed. Coronal and sagittal reformatted images were obtained from the axial source images. Images were reviewed on a high-resolu [employer] PACS workstation. Total exam DLP is 1442.28 mGy-cm. CTDIvol is 22.99 mGy. One or more of the following dose reduction techniques were used: Automated exposure control, adjustment of the mA and/ or kV according to patient size, use of iterative reconstruction technique. COMPARISON: Ultrasound of the abdomen and retroperitoneum dated 01/07/2015. FINDINGS: There is mild atelectasis at the lung bases posteriorly. The lung bases are otherwise normal. The heart is enlarged. There is no pericardial effusion or pleural effusion. The liver is normal in size and attenuation. There is no focal hepatic lesion. The gallbladder and bile ducts are normal. The spleen is normal in size. There is no focal splenic lesion. Both adrenals are normal with no enlargement or mass. The pancreas is unremarkable with no mass or evidence of pancreatitis. There is no renal mass or hydronephrosis. There is no renal calculus or ureteral calculus. The abdominal aorta is not dilated. There is calcification in the aorta consistent with atherosclero sis. There is no retroperitoneal lymphadenopathy or mass. There is no pelvic lymphadenopathy or mass. There is a Calle catheter in the urinary bladder. The periappendiceal region is unremarkable with no evidence of appendicitis. The bowel and mesentery are normal. There is no free fluid or free gas. There are degenerative changes of the spine. There is no fracture or lytic lesion. IMPRESSION: 1. Mild atelectasis at the lung bases posteriorly. 2. Cardiomegaly. 3. Atherosclerosis. 4. Calle catheter in the bladder. 5. Degenerative changes of the spine. RPTAT: QQ .Ok Tellez MD, MD Date Time Electronically viewed and signed by .Ok Tellez MD, on 07/21/2016 15:46 .R/
--- NOTE | 2016-07-21 16:59 | PN ---
DATE: 07/21/2016 CARDIOLOGY FOLLOWUP SUBJECTIVE: Discussed with the staff. Discussed with the patient. Breathing has remained stable, improved slightly. Has lower extremity edema. No chest pain or pressure. No palpitations. MEDICATIONS: Reviewed. PHYSICAL EXAMINATION: VITAL SIGNS: Temperature 98, heart rate 103, blood pressure 145/89, respiratory rate of 23, saturat ing 95%. HEENT: Normocephalic, atraumatic. Obese female. Pupils are equal. CARDIOVASCULAR: Regular rate and rhythm. PULMONARY: Anteriorly with no wheezes heard. Minimal rhonchi at the bases. ABDOMEN: Obese, soft, nontender. No rebound, no guarding. EXTREMITIES: Positive bilateral lower extremity edema. NEUROLOGIC: Awake, responds appropriately. PSYCHIATRIC: Appears to be calm. LABORATORY DATA: WBC of 6.1, hemoglobin 8.3, platelet 196. Sodium 138, potassium 4.4, BUN of 32, c reatinine 0.92, glucose of 359. Echocardiogram was also personally reviewed, which shows ejection fraction of about 65%. There is b iatrial enlargement. PA pressure is elevated at 73 mmHg with dilated IVC. ASSESSMENT AND PLAN: 1. Congestive heart failure/pulmonary hypertension, acute on chronic, secondary to diastolic dysfun ction. 2. Atrial fibrillation, chronic, on anticoagulation. However, the INR is subtherapeutic. 3. Hypertension. 4. Diabetes. 5. Dyslipidemia. 6. Morbid obesity. 7. Lower extremity cellulitis. RECOMMENDATIONS: I will increase IV Lasix to b.i.d. for now. Monitor renal function. Coumadin to be increased to 5 mg. Monitor the INR level. Current blood pressure medication including beta bloc ker and losartan will be continued. Dictated By: ENEDINA GARCES MD AV/GINGER Conf#: [id number] DID#: [id number] CC: CURT ARCOS MD;*EndCC*
[2016-07-21] MEDS: WARFARIN 5 MG TAB PO SCH (17:00)
[2016-07-21] MEDS: FUROSEMIDE 40 MG INJ IV SCH (18:02)
[2016-07-21] MEDS ORDERED: VANCOMYCIN 1.25 GM in SOD CHLORIDE 0.9% 250 ML IVPB SCH (18:30)
[2016-07-21] MEDS ORDERED: VANCOMYCIN 1.5 GM in SOD CHLORIDE 0.9% 250 ML IVPB SCH (18:30)
[2016-07-21] MEDS ORDERED: INSULIN GLARGINE [LANtus] 3 ML PEN SC SCH (20:00)
[2016-07-21] MEDS ORDERED: INSULIN ASPART [NOVOLOG] 3 ML PEN SC SCH (20:25)
[2016-07-21] MEDS: INSULIN GLARGINE [LANtus] 3 ML PEN SC SCH (20:48)
[2016-07-21] MEDS: ATORVASTATIN 40 MG TAB PO SCH (20:49)
[2016-07-21] MEDS: morphine 2 MG INJ IV PRN (20:50)
[2016-07-22] VITALS (11 sets, daily range): BP systolic 131–145; BP diastolic 58–79; PULSE 74–106; RESP 19–20
[2016-07-22] MEDS ORDERED: ACCU-CHEK XX SCH (02:00)
[2016-07-22] MEDS: ACCU-CHEK XX SCH (02:00)
[2016-07-22] MEDS: FUROSEMIDE 40 MG INJ IV SCH ×2 (05:18→18:00)
[2016-07-22] MEDS ORDERED: NPH, HUMAN INSULIN ISOPHANE 3ML VIAL SC SCH (08:00)
[2016-07-22 08:09] LABS: ADD SCAN DIFF NO
[2016-07-22 08:16] LABS: BASOPHILS % 0.2 % (0.0-2.0); EOSINOPHILS % 0.1 % (0.0-7.0); HEMATOCRIT 27.9 % (37.0-47.0); HEMOGLOBIN 8.4 g/dl (12.0-16.0); LYMPHOCYTES # 0.8 10^3/ul (0.8-2.9); LYMPHOCYTES % 10.3 % (15.0-51.0); MEAN CORPUSCULAR HEMOGLOBIN 28.7 pg (29.0-33.0); MEAN CORPUSCULAR HGB CONC 30.1 g/dl (32.0-37.0); MEAN CORPUSCULAR VOLUME 95.2 fl (82.0-101.0); MEAN PLATELET VOLUME 10.2 fl (7.4-10.4); MONOCYTE # 0.3 10^3/ul (0.3-0.9); MONOCYTES % 4.1 % (0.0-11.0); NEUTROPHIL # 6.8 10^3/ul (1.6-7.5); NEUTROPHILS % 84.9 % (39.0-77.0); PLATELET COUNT 220 10^3/UL (140-415); RED BLOOD COUNT 2.93 10^6/ul (4.20-5.40); RED CELL DISTRIBUTION WIDTH 15.5 % (11.5-14.5); WHITE BLOOD COUNT 8.1 10^3/ul (4.8-10.8)
[2016-07-22] MEDS: NPH, HUMAN INSULIN ISOPHANE 3ML VIAL SC SCH ×2 (08:17→21:54)
[2016-07-22] MEDS: INSULIN ASPART [NOVOLOG] 3 ML PEN SC SCH ×8 (08:17→21:58)
[2016-07-22 08:34] LABS: ALBUMIN 3.4 g/dl (3.3-4.9); BILIRUBIN,INDIRECT 0.1 mg/dl (0-1.1); BILIRUBIN,TOTAL 0.1 mg/dl (0.2-1.3); CALCIUM 8.9 mg/dl (8.4-10.2); CREATININE 1.1 mg/dl (0.44-1.00); MAGNESIUM 1.7 mg/dl (1.7-2.5); POTASSIUM 4.6 mmol/L (3.5-5.1); TOTAL PROTEIN 6.8 g/dl (6.1-8.1)
[2016-07-22 08:36] LABS: INR 1.21; PROTIME 15.4 Sec (12.2-14.2); PT RATIO 1.2
--- NOTE | 2016-07-22 08:40 | PN ---
DATE: 07/22/2016 CARDIOLOGY FOLLOWUP SUBJECTIVE: The patient's breathing has improved. No chest pain or pressure. Does complain or majano d pain and itchiness. MEDICATIONS: Reviewed as per medication reconciliation, personally reviewed, which include: 1. Insulin. 2. Vancomycin. 3. Lasix 40 IV b.i.d. 4. Coumadin. 5. Lipitor. 6. Metoprolol. 7. Solu-Medrol. PHYSICAL EXAMINATION VITAL SIGNS: Temperature 98.1, heart rate of 104, blood pressure 131/69, respiration rate 19, satur ating 94%. HEENT: Normocephalic, atraumatic. Obese female. Pupils are equal. CARDIOVASCULAR: Irregularly irregular. Systolic murmur. PULMONARY: With no wheezes. Minimal rhonchi at the base. GASTROINTESTINAL: Obese, soft, nontender. EXTREMITIES: Decreased lower extremity edema. foot edema, has been in dressing. PSYCHIATRIC: Appears to be calm and pleasant. LABORATORY: Glucose this morning is 251. The rest of the labs are pending. Echocardiogram was personally reviewed, which shows normal ejection fraction of 65% with pulmonary h ypertension, peak rate of 73 mmHg. ASSESSMENT AND PLAN: 1. Congestive heart failure. 2. Pulmonary hypertension. 3. Atrial fibrillation. 4. Hypertension. 5. Diabetes. 6. Dyslipidemia. 7. Morbid obesity. 8. . RECOMMENDATIONS: 1. Follow up labs, adjust diuretics as needed. 2. Antibiotic will be continued and managed as per internal medicine. 3. Heart rate is currently under good control. If needed, Digoxin will be added as well. 4. Pulmonary care as per Dr. White and associates. Dictated By: ENEDINA GARCES MD AV/GINGER Conf#: [id number] DID#: [id number] CC: SHUKRI WHITE MD;*EndCC*
[2016-07-22] MEDS: DIPHENHYDRAMINE 50 MG INJ IV SCH ×2 (08:57→23:03)
[2016-07-22] MEDS: METHYLPREDNISOLONE 40 MG INJ IV SCH ×2 (08:57→23:02)
[2016-07-22] MEDS: LOSARTAN 25 MG TAB PO SCH ×2 (08:58→21:36)
[2016-07-22] MEDS: ASCORBIC ACID 500 MG TAB PO SCH (08:58)
[2016-07-22] MEDS: PANTOPRAZOLE (EC) 40 MG TAB PO SCH ×2 (08:58→21:35)
[2016-07-22] MEDS: CHOLECALCIFEROL 1,000 UNIT TAB PO SCH (08:59)
[2016-07-22] MEDS: GABAPENTIN 400 MG CAP PO SCH ×2 (08:59→21:35)
[2016-07-22] MEDS: ZINC SULFATE 220 MG CAP PO SCH (08:59)
[2016-07-22] MEDS: METOPROLOL 50 MG TAB PO SCH ×2 (08:59→21:49)
[2016-07-22] MEDS: LEVETIRACETAM 500 MG TAB PO SCH ×2 (08:59→21:36)
[2016-07-22] MEDS: SALMETEROL/FLUTICASONE 250/50 INHA INH SCH ×2 (09:00→21:35)
[2016-07-22] MEDS: ALBUTEROL/IPRATROPIUM (NEB) 3 ML AMP HHN SCH ×4 (09:58→21:23)
[2016-07-22] MEDS: CEFEPIME 2GM/50 ML (PMX) 50 ML IVPB SCH (10:25)
--- NOTE | 2016-07-22 12:08 | CONS ---
Date/Time of Note Date/Time of Note DATE: 07/22/16 TIME: 12:06 Assessment/Plan Assessment/Plan Additional Assessment/Plan Assessment recommendations; 1. Patient admitted for CHF exacerbation with clinical improvement. 2. History of atrial fibrillation, hypertension, diabetes and anemia. 3. Left-sided pneumonia UTI. Continue current treatment but discontinue vancomycin and cefepime. Start the patient on ciprofloxacin 500 mg orally twice a day for 1 week. Consultation Date/Type/Reason Admit Date/Time Jul 20, 2016 at 14:10 Initial Consult Date 07/21/16 Type of Consultation: Pulmonary 24 HR Interval Summary Free Text/Dictation Patient is doing very well. Denies any shortness of breath, chest pain, wheezing cough sputum production. General exam; elderly lady, awake alert currently in no distress. Exam/Review of Systems Vital Signs Vitals Vital Signs Date Time Temp Pulse Resp B/P Pulse Ox O2 Delivery O2 Flow Rate FiO2 07/22/16 11:59 98.0 110 19 145/79 95 07/22/16 11:37 Nasal Cannula 2.0 07/22/16 09:58 21 Intake and Output 07/21/16 07/21/16 07/22/16 15:00 23:00 07:00 Intake Total 400 ml Output Total 700 ml Balance -300 ml Exam HEENT exam is; supple neck, positive JVD. No lymphadenopathy. Midline trachea. No thyromegaly. Pharynx is clear. Pupils are small bilaterally. Chest exam is; diminished but clear vessel bilaterally. S1-S2 audible, no murmurs. Regular rhythm. Abdomen exam is; protuberant, nontender, no organomegaly. Bowel sounds audible. Extremity exam is; no peripheral edema. LAY OUT TECHNICIAN examination; no focal deficit. Results Result Diagram: 07/22/16 0730 07/22/16 0730 Results 24 hrs Laboratory Tests Test 07/21/16 12:18 07/21/16 17:47 07/21/16 17:49 07/21/16 20:02 Bedside Glucose 393 H 477 *H 443 *H 466 *H Test 07/22/16 01:18 07/22/16 07:30 07/22/16 07:56 Bedside Glucose 128 251 H White Blood Count 8.1 # Red Blood Count 2.93 L Hemoglobin 8.4 L Hematocrit 27.9 L Mean Corpuscular Volume 95.2 Mean Corpuscular Hemoglobin 28.7 L Mean Corpuscular Hemoglobin Concent 30.1 L Red Cell Distribution Width 15.5 H Platelet Count 220 Mean Platelet Volume 10.2 Neutrophils % 84.9 H Lymphocytes % 10.3 L Monocytes % 4.1 Eosinophils % 0.1 Basophils % 0.2 Nucleated Red Blood Cells % 0.0 Neutrophils # 6.8 Lymphocytes # 0.8 Monocytes # 0.3 Eosinophils # 0.0 Basophils # 0.0 Nucleated Red Blood Cells # 0.0 Prothrombin Time 15.4 H Prothrombin Time Ratio 1.2 INR International Normalized Ratio 1.21 Sodium Level 134 L Potassium Level 4.6 Chloride Level 94 L Carbon Dioxide Level 34 H Anion Gap 11 Blood Urea Nitrogen 37 H Creatinine 1.10 H Glucose Level 229 #H Calcium Level 8.9 Magnesium Level 1.7 Total Bilirubin 0.1 L Direct Bilirubin 0.00 Indirect Bilirubin 0.1 Aspartate Amino Transf (AST/SGOT) 24 Alanine Aminotransferase (ALT/SGPT) 21 Alkaline Phosphatase 89 B-Type Natriuretic Peptide 5750 H Total Protein 6.8 Albumin 3.4 Globulin 3.40 H Albumin/Globulin Ratio 1.00 Medications Medications Current Medications Lorazepam (Ativan) 0.5 mg Q6H PRN IV ANXIETY; Start 07/20/16 at 17:00 Eye Lubricant (Artificial Tears Oph) 1 drop DAILY PRN BOTH EYES DRY EYES; Start 07/20/16 at 17:00 Ascorbic Acid (Vitamin C) 500 mg DAILY PO Last administered on 07/22/16 08:58 ; Admin Dose 500 MG; Start 07/21/16 at 09:00 Atorvastatin Calcium (Lipitor) 40 mg HS PO Last administered on 07/21/16 20:49 ; Admin Dose 40 MG; Start 07/20/16 at 21:00 Docusate Sodium (Colace) 200 mg QHS PRN PO CONSTIPATION; Start 07/20/16 at 17: 00 Gabapentin (Neurontin) 400 mg BID PO Last administered on 07/22/16 08:59; Admin Dose 400 MG; Start 07/20/16 at 21:00 Levetiracetam (Keppra) 375 mg BID PO Last administered on 07/22/16 08:59; Admin Dose 375 MG; Start 07/20/16 at 21:00 Losartan Potassium (Cozaar) 25 mg BID PO Last administered on 07/22/16 08:58; Admin Dose 25 MG; Start 07/20/16 at 21:00 Metoprolol Tartrate (Lopressor) 50 mg BID PO Last administered on 07/22/16 08: 59; Admin Dose 50 MG; Start 07/20/16 at 21:00 Pantoprazole (Protonix Tab) 40 mg BID PO Last administered on 07/22/16 08:58; Admin Dose 40 MG; Start 07/20/16 at 21:00 Salmeterol Xinafoate/ Fluticasone (Advair 250/50 Diskus) 1 inh BID INH Last administered on 07/22/16 09:00; Admin Dose 1 INH; Start 07/20/16 at 21:00 Zinc Sulfate (Zinc Sulfate) 220 mg DAILY PO Last administered on 07/22/16 08: 59; Admin Dose 220 MG; Start 07/21/16 at 09:00 Diphenhydramine HCl (Benadryl) 25 mg Q12H IV Last administered on 07/22/16 08: 57; Admin Dose 25 MG; Start 07/20/16 at 21:00 Diagnostic Test (Pha) (Accu-Chek) 1 ea 02 XX ; Start 07/21/16 at 02:00 Miscellaneous Information 1 ea NOTE XX ; Start 07/20/16 at 17:00 Glucose (Glutose) 15 gm Q15M PRN PO DECREASED GLUCOSE; Start 07/20/16 at 17:00 Glucose (Glutose) 22.5 gm Q15M PRN PO DECREASED GLUCOSE; Start 07/20/16 at 17: 00 Dextrose (D50w Syringe) 25 ml Q15M PRN IV DECREASED GLUCOSE; Start 07/20/16 at 17:00 Dextrose (D50w Syringe) 50 ml Q15M PRN IV DECREASED GLUCOSE; Start 07/20/16 at 17:00 Glucagon (Glucagen) 1 mg Q15M PRN IM DECREASED GLUCOSE; Start 07/20/16 at 17:00 Glucose (Glutose) 15 gm Q15M PRN BUCCAL DECREASED GLUCOSE; Start 07/20/16 at 17 :00 Methylprednisolone Sodium Succinate (Solu-Medrol) 40 mg BID@08,20 IV Last administered on 07/22/16 08:57; Admin Dose 40 MG; Start 07/20/16 at 20:00 Hydralazine HCl 10 mg 10 mg Q6H PRN IV SBP>160; Start 07/20/16 at 17:30 Cefepime HCl (Maxipime 2gm/50 ml (Pmx)) 50 ml @ 100 mls/hr Q12 IVPB Last administered on 07/22/16 10:25; Admin Dose 100 MLS/HR; Start 07/20/16 at 21:00 Morphine Sulfate (morphine) 2 mg Q4H PRN IV Pain Last administered on 20:50; Admin Dose 2 MG; Start 07/20/16 at 18:30 Ondansetron HCl (Zofran Inj) 4 mg Q4H PRN IV NAUSEA AND/OR VOMITING Last administered on 07/20/16 18:57; Admin Dose 4 MG; Start 07/20/16 at 19:00 Cholecalciferol 1000 unit 1,000 unit DAILY PO Last administered on 07/22/16 08 :59; Admin Dose 1,000 UNIT; Start 07/21/16 at 09:00 Vancomycin HCl/ Sodium Chloride (Vancocin/NS) 250 ml @ 83.333 mls/ hr Q24H IVPB Last administered on 07/21/16 18:02; Admin Dose 83.333 MLS/HR; Start at 18:30 Warfarin Sodium (Coumadin) 5 mg DAILY@17 PO Last administered on 07/21/16 17: 00; Admin Dose 5 MG; Start 07/21/16 at 17:00 Insulin Glargine (Lantus) 40 unit DAILY@20 SC Last administered on 07/21/16 20 :48; Admin Dose 40 UNIT; Start 07/21/16 at 20:31 Insulin Human NPH (Humulin N) 12 unit BID@08,20 SC Last administered on 08:17; Admin Dose 12 UNIT; Start 07/21/16 at 20:33 SHUKRI WHITE Jul 22, 2016 12:08
[2016-07-22] MEDS: LORAZEPAM 2 MG INJ IV PRN (13:23)
[2016-07-22] MEDS: morphine 2 MG INJ IV PRN (15:13)
--- NOTE | 2016-07-22 16:40 | PN ---
DATE: 07/22/2016 TIME OF EVALUATION: 1500 SUBJECTIVE DATA: Complains of generalized body pain and generalized itching. Improved shortness of breath. OBJECTIVE DATA: VITAL SIGNS: Temperature 98.5, pulse rate 65, respiratory rate 19, oxygen saturation 97% on low-flow O2. GENERAL: This is a morbidly obese female lying in bed in no apparent distress. HEENT: Head normocephalic and atraumatic. Eyes: Anicteric sclerae. Conjunctivae clear. ENT: Nasal septum is midline. Oral mucosa is moist. NECK: Supple. No JVD noticed. RESPIRATORY: Bilaterally diminished breath sounds. No use of accessory muscles of respiration. Bilateral fine rales. CARDIAC: Irregularly irregular rhythm. Rate controlled. Systolic murmur. ABDOMEN: Soft, obese. Bowel sounds hypoactive in all 4 quadrants. GENITOURINARY: Deferred. EXTREMITIES: Bilateral lower extremity 3+ pitting edema. Peripheral pulses not palpable. Left penaloza area erythema with multiple wounds and tenderness to touch. NEUROLOGIC: The patient is awake, alert, oriented. Cranial nerves are grossly intact. SKIN: Multiple maculopapular lesions with evidence of scratching of the skin. LABORATORY DATA: WBC 8.1, hemoglobin 8.4, hematocrit 27.9, platelet count 220. Sodium 134, potassium 4.6, chloride 94, carbon dioxide 34, anion gap 11, BUN 37, creatinine 1.10, glucose 229, calcium 8.9, magnesium 1.7. ASSESSMENT AND PLAN: 1. Acute hypoxic and hypercapnic respiratory failure. Most probably a combination of congestive heart failure and chronic obstructive pulmonary disease. Continue inhaled bronchodilators and supplemental oxygen. Cardiology and Pulmonary following the patient. 2. Congestive heart failure exacerbation. Acute on chronic diastolic heart failure. Continue diuretics as per Cardiology. 3. Pulmonary hypertension. PA pressure of 73 mmHg. Continue supplemental oxygen. 4. Left lower extremity cellulitis. Continue antibiotics. 5. Urinary tract infection. Continue antibiotics. 6. Atrial fibrillation. The patient's heart rate is controlled. Continue cardiac medications. On anticoagulation for stroke prophylaxis. 7. Essential hypertension. Continue antihypertensives including p.r.n. antihypertensives for systolic blood pressure readings greater than 160 mmHg. 8. Diabetic neuropathy. Continue gabapentin. 9. Generalized skin rashes. Skin biopsy negative for any scabies. Continue histamine-1 and histamine-2 blockade. 10. Chronic obstructive pulmonary disease exacerbation. Continue inhaled bronchodilators and tapering dose of steroids. 11. Seizure disorder. Continue anticonvulsants. 12. Vitamin D deficiency. Continue vitamin D supplements. 13. Morbid obesity. Weight reduction advised. 14. Fluid, electrolytes and nutrition. Carbohydrate controlled, low- cholesterol diet. 15. Deep venous thrombosis prophylaxis. On warfarin. 16. Gastrointestinal prophylaxis. On proton pump inhibitors. PLAN: Continue recommendations from Cardiology and Pulmonology. Taper down steroids. Case discussed with Dr. Meza. ESPERANZA MEZA MD AM/NTS Conf#: [id number] DID#: [id number] MTDD
[2016-07-22] MEDS: WARFARIN 5 MG TAB PO SCH (17:29)
[2016-07-22] MEDS ORDERED: CIPROFLOXACIN 500 MG TAB GTB SCH (18:00)
[2016-07-22] MEDS ORDERED: INSULIN GLARGINE [LANtus] 3 ML PEN SC SCH (20:00)
[2016-07-22] MEDS: ATORVASTATIN 40 MG TAB PO SCH (21:36)
[2016-07-22] MEDS: INSULIN GLARGINE [LANtus] 3 ML PEN SC SCH (21:54)
[2016-07-23] VITALS (12 sets, daily range): BP systolic 123–148; BP diastolic 60–76; PULSE 73–95; RESP 17–22
[2016-07-23] MEDS: ACCU-CHEK XX SCH (01:19)
[2016-07-23] MEDS: LORAZEPAM 2 MG INJ IV PRN (01:24)
[2016-07-23] MEDS: FUROSEMIDE 40 MG INJ IV SCH ×2 (05:49→17:56)
[2016-07-23] MEDS: CIPROFLOXACIN 500 MG TAB GTB SCH (05:49)
[2016-07-23 07:46] LABS: ADD SCAN DIFF NO
[2016-07-23] MEDS: INSULIN ASPART [NOVOLOG] 3 ML PEN SC SCH ×8 (07:55→23:09)
[2016-07-23 07:56] LABS: ABNORMAL IP MESSAGE 1; BASOPHILS % 0.2 % (0.0-2.0); HEMATOCRIT 29.5 % (37.0-47.0); HEMOGLOBIN 8.7 g/dl (12.0-16.0); LYMPHOCYTES # 0.5 10^3/ul (0.8-2.9); LYMPHOCYTES % 7.4 % (15.0-51.0); MEAN CORPUSCULAR HEMOGLOBIN 28.1 pg (29.0-33.0); MEAN CORPUSCULAR HGB CONC 29.5 g/dl (32.0-37.0); MEAN CORPUSCULAR VOLUME 95.2 fl (82.0-101.0); MEAN PLATELET VOLUME 10.4 fl (7.4-10.4); MONOCYTE # 0.2 10^3/ul (0.3-0.9); MONOCYTES % 2.9 % (0.0-11.0); NEUTROPHIL # 5.9 10^3/ul (1.6-7.5); PLATELET COUNT 208 10^3/UL (140-415); RED CELL DISTRIBUTION WIDTH 15.6 % (11.5-14.5); WHITE BLOOD COUNT 6.6 10^3/ul (4.8-10.8)
[2016-07-23 08:02] LABS: INR 1.16; PROTIME 14.8 Sec (12.2-14.2); PT RATIO 1.2
[2016-07-23 08:18] LABS: ALBUMIN 3.5 g/dl (3.3-4.9); ALBUMIN/GLOBULIN RATIO 1.02; BILIRUBIN,INDIRECT 0.1 mg/dl (0-1.1); BILIRUBIN,TOTAL 0.1 mg/dl (0.2-1.3); CREATININE 0.98 mg/dl (0.44-1.00); MAGNESIUM 1.8 mg/dl (1.7-2.5); POTASSIUM 4.2 mmol/L (3.5-5.1); TOTAL PROTEIN 6.9 g/dl (6.1-8.1)
[2016-07-23] MEDS: ALBUTEROL/IPRATROPIUM (NEB) 3 ML AMP HHN SCH ×4 (08:25→21:33)
[2016-07-23] MEDS ORDERED: DIGOXIN 500 MCG INJ IV ONE (09:30)
[2016-07-23] MEDS: METHYLPREDNISOLONE 40 MG INJ IV SCH ×2 (09:35→21:54)
[2016-07-23] MEDS: LEVETIRACETAM 500 MG TAB PO SCH ×2 (09:37→21:55)
[2016-07-23] MEDS: CHOLECALCIFEROL 1,000 UNIT TAB PO SCH (09:38)
[2016-07-23] MEDS: ZINC SULFATE 220 MG CAP PO SCH (09:38)
[2016-07-23] MEDS: GABAPENTIN 400 MG CAP PO SCH ×2 (09:38→21:53)
[2016-07-23] MEDS: LOSARTAN 25 MG TAB PO SCH ×2 (09:38→21:56)
[2016-07-23] MEDS: ASCORBIC ACID 500 MG TAB PO SCH (09:39)
[2016-07-23] MEDS: METOPROLOL 50 MG TAB PO SCH ×2 (09:39→21:55)
[2016-07-23] MEDS: PANTOPRAZOLE (EC) 40 MG TAB PO SCH ×2 (09:39→21:53)
[2016-07-23] MEDS: DIPHENHYDRAMINE 50 MG INJ IV SCH ×2 (09:44→21:53)
[2016-07-23] MEDS: SALMETEROL/FLUTICASONE 250/50 INHA INH SCH ×2 (09:44→21:56)
[2016-07-23] MEDS: APIXABAN 5 MG TABLET PO SCH ×2 (09:51→21:53)
[2016-07-23] MEDS: SPIRONOLACTONE 25 MG TAB PO SCH (09:51)
[2016-07-23] MEDS: NPH, HUMAN INSULIN ISOPHANE 3ML VIAL SC SCH ×2 (10:25→23:05)
--- NOTE | 2016-07-23 10:42 | PN ---
DATE: 07/23/2016 CARDIOLOGY FOLLOWUP SUBJECTIVE: Discussed with the staff. Rhythm strip reviewed. The patient is in atrial fibrillatio n. Heart rate has been intermittently elevated. No chest pain or pressure. Has been complaining o f itchiness. Breathing has remained stable. MEDICATIONS: Reviewed. PHYSICAL EXAMINATION: VITAL SIGNS: Temperature 98.9, heart rate of 95, blood pressure 138/61, respiration rate of 20, sat urating 94% to 98%. HEENT: Normocephalic, atraumatic, morbidly obese female. Pupils are equal. CARDIOVASCULAR: Irregularly irregular. Systolic murmur. PULMONARY: With no wheezes heard, mild rhonchi. GASTROINTESTINAL: Soft, obese, nontender. EXTREMITIES: With decreased lower extremity edema. decreased erythema of lower extremities. NEUROLOGIC: Awake and alert. PSYCHIATRIC: Calm, pleasant. LABORATORY: Sodium 134, potassium 4.2, BUN of 39, creatinine 0.98, glucose 219. ProBNP of 5180. LABORATORY: CBC shows WBC of 6.6, hemoglobin 8.7, platelets of 208. ASSESSMENT AND PLAN: 1. Congestive heart failure secondary to diastolic dysfunction, acute on chronic. 2. History of pulmonary hypertension, atrial fibrillation, hypertension, morbid obesity with hypove ntilation syndrome. 3. Diabetes. 4. Dyslipidemia. 5. Most likely a sleep apnea. RECOMMENDATIONS: I will change the Coumadin to Eliquis. INR is still subtherapeutic. Continue wit h IV Lasix for now. Respiratory care as per pulmonary will be continued. Antibiotic as per ID isra mmendation. Diabetic control will be continued as well. I will also add Aldactone to her regimen. We will give 1 dose of digoxin IV to control the heart rate, it is slightly better. We will check the labs again tomorrow morning. Continue to monitor on telemetry. Dictated By: ENEDINA GARCES MD AV/NTS Conf#: [id number] DID#: [id number] CC: ESPERANZA GARCIA ASSISTANT AT SURGERY;*End*
--- NOTE | 2016-07-23 12:58 | PN ---
Date/Time of Note Date/Time of Note DATE: 07/23/16 TIME: 12:53 Assessment/Plan VTE Prophylaxis VTE Prophylaxis Intervention: other (Eliquis) Lines/Catheters IV Catheter Type (from Nrs): Saline Lock Urinary Cath still in place: Yes Reason Cath still needed: urinary retention Assessment/Plan Chief Complaint/Hosp Course ASSESSMENT AND PLAN: 1. Acute hypoxic and hypercapnic respiratory failure. Most probably a combination of congestive heart failure and chronic obstructive pulmonary disease. Continue inhaled bronchodilators and supplemental oxygen. Cardiology and Pulmonary following the patient. 2. Congestive heart failure. Acute on chronic diastolic heart failure - slowly improving - Continue diuretics as per Cardiology. 3. Pulmonary hypertension. PA pressure of 73 mmHg. Continue supplemental oxygen. 4. Left lower extremity cellulitis. Continue antibiotics. 5. Urinary tract infection. Continue antibiotics - f/u final cx results - get ID consult as well. 6. Atrial fibrillation. The patient's heart rate is better after IV dig today - f/u CV rec's, Spironolactone, IV dig x 1, Eliquis. On anticoagulation for stroke prophylaxis. 7. Essential hypertension. Continue antihypertensives including p.r.n. antihypertensives for systolic blood pressure readings greater than 160 mmHg. 8. Diabetic neuropathy. Continue gabapentin. 9. Generalized skin rashes. Skin biopsy negative for any scabies. Continue histamine-1 and histamine-2 blockade. 10. Chronic obstructive pulmonary disease exacerbation. Continue inhaled bronchodilators and tapering dose of steroids. 11. Seizure disorder. Continue anticonvulsants. 12. Vitamin D deficiency. Continue vitamin D supplements. 13. Morbid obesity. Weight reduction advised. 14. Fluid, electrolytes and nutrition. Carbohydrate controlled, low- cholesterol diet. 15. Deep venous thrombosis prophylaxis. On warfarin. 16. Gastrointestinal prophylaxis. On proton pump inhibitors. Problems: Subjective 24 Hr Interval Summary Free Text/Dictation Seen by CV team, HR improved now. Still with itchiness. Exam/Review of Systems Vital Signs Vitals Vital Signs Date Time Temp Pulse Resp B/P Pulse Ox O2 Delivery O2 Flow Rate FiO2 07/23/16 12:31 2.0 07/23/16 12:30 90 22 95 Nasal Cannula 07/23/16 12:12 98.6 142/60 07/22/16 09:58 21 Intake and Output 07/22/16 07/22/16 07/23/16 15:00 23:00 07:00 Intake Total 50 ml 600 ml 600 ml Output Total 1400 ml 750 ml Balance 50 ml -800 ml -150 ml Exam GENERAL: This is a morbidly obese female lying in bed in no apparent distress. HEENT: Head normocephalic and atraumatic. Eyes: Anicteric sclerae. Conjunctivae clear. ENT: Nasal septum is midline. Oral mucosa is moist. NECK: Supple. No JVD noticed. RESPIRATORY: Bilaterally diminished breath sounds. No use of accessory muscles of respiration. Bilateral fine rales. CARDIAC: Irregularly irregular rhythm. Rate controlled. Systolic murmur. ABDOMEN: Soft, obese. Bowel sounds hypoactive in all 4 quadrants. GENITOURINARY: Deferred. EXTREMITIES: Bilateral lower extremity 3+ pitting edema. Peripheral pulses not palpable. Left penaloza area erythema with multiple wounds and tenderness to touch. NEUROLOGIC: The patient is awake, alert, oriented. Cranial nerves are grossly intact. SKIN: Multiple maculopapular lesions with evidence of scratching of the skin. Results Result Diagram: 07/23/16 0604 07/23/16 0604 Results 24 hrs Laboratory Tests Test 07/22/16 17:24 07/22/16 21:44 07/23/16 01:18 07/23/16 06:04 Bedside Glucose 319 H 349 H 130 White Blood Count 6.6 Red Blood Count 3.10 L Hemoglobin 8.7 L Hematocrit 29.5 L Mean Corpuscular Volume 95.2 Mean Corpuscular Hemoglobin 28.1 L Mean Corpuscular Hemoglobin Concent 29.5 L Red Cell Distribution Width 15.6 H Platelet Count 208 Mean Platelet Volume 10.4 Neutrophils % 89.0 H Lymphocytes % 7.4 L Monocytes % 2.9 Eosinophils % 0.0 Basophils % 0.2 Nucleated Red Blood Cells % 0.0 Neutrophils # 5.9 Lymphocytes # 0.5 L Monocytes # 0.2 L Eosinophils # 0.0 Basophils # 0.0 Nucleated Red Blood Cells # 0.0 Prothrombin Time 14.8 H Prothrombin Time Ratio 1.2 INR International Normalized Ratio 1.16 Sodium Level 134 L Potassium Level 4.2 Chloride Level 97 Carbon Dioxide Level 32 H Anion Gap 9 Blood Urea Nitrogen 39 H Creatinine 0.98 Glucose Level 219 Calcium Level 9.0 Magnesium Level 1.8 Total Bilirubin 0.1 L Direct Bilirubin 0.00 Indirect Bilirubin 0.1 Aspartate Amino Transf (AST/SGOT) 22 Alanine Aminotransferase (ALT/SGPT) 22 Alkaline Phosphatase 88 B-Type Natriuretic Peptide 5180 H Total Protein 6.9 Albumin 3.5 Globulin 3.40 H Albumin/Globulin Ratio 1.02 Test 07/23/16 08:46 07/23/16 09:45 Bedside Glucose 245 H Digoxin Level < 0.4 L Medications Medications Current Medications Lorazepam (Ativan) 0.5 mg Q6H PRN IV ANXIETY Last administered on 07/23/16 01: 24; Admin Dose 0.5 MG; Start 07/20/16 at 17:00 Eye Lubricant (Artificial Tears Oph) 1 drop DAILY PRN BOTH EYES DRY EYES; Start 07/20/16 at 17:00 Ascorbic Acid (Vitamin C) 500 mg DAILY PO Last administered on 07/23/16 09:39 ; Admin Dose 500 MG; Start 07/21/16 at 09:00 Atorvastatin Calcium (Lipitor) 40 mg HS PO Last administered on 07/22/16 21:36 ; Admin Dose 40 MG; Start 07/20/16 at 21:00 Docusate Sodium (Colace) 200 mg QHS PRN PO CONSTIPATION; Start 07/20/16 at 17: 00 Gabapentin (Neurontin) 400 mg BID PO Last administered on 07/23/16 09:38; Admin Dose 400 MG; Start 07/20/16 at 21:00 Levetiracetam (Keppra) 375 mg BID PO Last administered on 07/23/16 09:37; Admin Dose 375 MG; Start 07/20/16 at 21:00 Losartan Potassium (Cozaar) 25 mg BID PO Last administered on 07/23/16 09:38; Admin Dose 25 MG; Start 07/20/16 at 21:00 Metoprolol Tartrate (Lopressor) 50 mg BID PO Last administered on 07/23/16 09: 39; Admin Dose 50 MG; Start 07/20/16 at 21:00 Pantoprazole (Protonix Tab) 40 mg BID PO Last administered on 07/23/16 09:39; Admin Dose 40 MG; Start 07/20/16 at 21:00 Salmeterol Xinafoate/ Fluticasone (Advair 250/50 Diskus) 1 inh BID INH Last administered on 07/23/16 09:44; Admin Dose 1 INH; Start 07/20/16 at 21:00 Zinc Sulfate (Zinc Sulfate) 220 mg DAILY PO Last administered on 07/23/16 09: 38; Admin Dose 220 MG; Start 07/21/16 at 09:00 Diphenhydramine HCl (Benadryl) 25 mg Q12H IV Last administered on 07/23/16 09: 44; Admin Dose 25 MG; Start 07/20/16 at 21:00 Miscellaneous Information 1 ea NOTE XX ; Start 07/20/16 at 17:00 Glucose (Glutose) 15 gm Q15M PRN PO DECREASED GLUCOSE; Start 07/20/16 at 17:00 Glucose (Glutose) 22.5 gm Q15M PRN PO DECREASED GLUCOSE; Start 07/20/16 at 17: 00 Dextrose (D50w Syringe) 25 ml Q15M PRN IV DECREASED GLUCOSE; Start 07/20/16 at 17:00 Dextrose (D50w Syringe) 50 ml Q15M PRN IV DECREASED GLUCOSE; Start 07/20/16 at 17:00 Glucagon (Glucagen) 1 mg Q15M PRN IM DECREASED GLUCOSE; Start 07/20/16 at 17:00 Glucose (Glutose) 15 gm Q15M PRN BUCCAL DECREASED GLUCOSE; Start 07/20/16 at 17 :00 Hydralazine HCl (Apresoline) 10 mg Q6H PRN IV SBP>160; Start 07/20/16 at 17:30 Ondansetron HCl (Zofran Inj) 4 mg Q4H PRN IV NAUSEA AND/OR VOMITING Last administered on 07/20/16 18:57; Admin Dose 4 MG; Start 07/20/16 at 19:00 Cholecalciferol (Vitamin D) 1,000 unit DAILY PO Last administered on 07/23/16 09:38; Admin Dose 1,000 UNIT; Start 07/21/16 at 09:00 Insulin Glargine (Lantus) 40 unit DAILY@20 SC Last administered on 07/22/16 21 :54; Admin Dose 40 UNIT; Start 07/21/16 at 20:31 Insulin Human NPH (Humulin N) 12 unit BID@08,20 SC Last administered on 10:25; Admin Dose 12 UNIT; Start 07/21/16 at 20:33 Morphine Sulfate (morphine) 4 mg Q4H PRN IV Pain Last administered on 15:13; Admin Dose 4 MG; Start 07/22/16 at 14:30 Methylprednisolone Sodium Succinate (Solu-Medrol) 20 mg BID@08,20 IV Last administered on 07/23/16 09:35; Admin Dose 20 MG; Start 07/22/16 at 20:00 Diagnostic Test (Pha) (Accu-Chek) 1 ea 02 XX Last administered on 07/23/16 01: 19; Admin Dose 1 EA; Start 07/23/16 at 02:00 Ciprofloxacin (Cipro) 500 mg DAILY@06 GTB Last administered on 07/23/16 05:49 ; Admin Dose 500 MG; Start 07/23/16 at 06:00 Apixaban (Eliquis) 5 mg BID PO Last administered on 07/23/16 09:51; Admin Dose 5 MG; Start 07/23/16 at 09:30 Spironolactone (Aldactone) 25 mg DAILY PO Last administered on 07/23/16 09:51 ; Admin Dose 25 MG; Start 07/23/16 at 09:30 Hydrocortisone (Hydrocortisone 1% Oint) 1 applic BID TOP ; Start 07/23/16 at 13: 00 Phenyleph/Shark Oil/Min Oil/Petrol (Formulation R Oint) 1 applic DAILY CA ; Start 07/23/16 at 14:00 JANET CHRISTINE Jul 23, 2016 12:58
[2016-07-23] MEDS: HYDROCORTISONE 1% 28.35 GM OINT TOP SCH ×2 (13:57→21:49)
[2016-07-23] MEDS: PE/SHARK OIL/MO/PETROL 30 GM OINT PR SCH (14:00)
[2016-07-23] MEDS ORDERED: VANCOMYCIN IV PER PHARMACY XX SCH (14:00)
--- NOTE | 2016-07-23 14:26 | CONS ---
DATE OF ADMISSION: 07/20/2016 DATE OF CONSULTATION: 07/23/2016 TYPE OF CONSULTATION: Infectious Disease. REASON FOR CONSULTATION: Antibiotic management. HISTORY OF PRESENT ILLNESS: Kelsie Barros is an 85-year-old female who was admitted with dyspnea and is being seen for antibiotic management. Her past problems include: 1. COPD. 2. Obstructive sleep apnea. 3. Atrial fibrillation on anticoagulation. 4. Essential hypertension. 5. Adult-onset diabetes mellitus. 6. Seizure disorder. 7. Stroke. 8. Dyslipidemia. 9. Obesity. 10. Dyspnea. 11. Bilateral lower extremity edema as well as generalized skin rash and associated pruritus. The patient denies fever. She has green productive cough. Lives in assisted living. She denies dys uria or hematuria. She has bilateral lower extremity pain. Chest x-ray showed cardiomegaly with mil d pulmonary edema. She underwent a blood gas on low flow O2 and it showed evidence of minimal CO2 r etention. In the emergency room, she received some Lasix 80 mg and an inhaled bronchodilator. PAST SURGICAL HISTORY: Positive for bilateral knee replacement. ALLERGIES: SHE IS ALLERGIC TO HYDROCORTISONE. SOCIAL HISTORY: She lives in [facility]. PHYSICAL EXAMINATION: GENERAL: The patient is a well-developed, but morbidly obese female lying in bed in modera te to mild distress. VITAL SIGNS: Stable. She is afebrile. SKIN: She has multiple maculopapular lesions with evidence of scratching the skin. HEENT: Within normal limits. NECK: Supple. LYMPH NODES: None palpable. CHEST: Decreased breath sounds at the bases. HEART: Without murmur or gallop. She has an irregularly irregular rhythm. ABDOMEN: Soft, obese, nontender, without organosplenomegaly or masses. EXTREMITIES: Without cyanosis, clubbing. She has 3+ edema. She has a left penaloza area which is erythe matous with multiple wounds and tenderness to the touch. RECTAL AND GENITAL: Deferred. NEUROLOGIC: No focal neurological abnormalities. ANCILLARY LABORATORY DATA: White count was 7.3, H and H of 8.6 and 28.6, platelet count 200,000. B UN and creatinine 34/0.96. Blood gas was done on low flow O2 and showed an oxygen saturation of 96. 7, a pCO2 of 62.9. Chest x-ray: Cardiomegaly, mild pulmonary edema. EKG showed atrial flutter. The patient was admitted with multiple comorbidities. She had left lower extremity cellulitis and wa s started on empiric antibiotic therapy. She has diabetic neuropathy. MICROBIOLOGY: Urine is growing K pneumo species sensitive to virtually everything but nitrofurantoi n. Her white count today is 6.6, H and H of 8.7 and 29.5, platelet count 208,000. BUN and creatini ne are 39/0.98. Urine is positive for nitrite, negative for leukocyte esterase. A CT scan of the abdomen and pelvis shows mild atelectasis at the lung bases, cardiomegaly. Calle c atheter in the bladder. Degenerative changes of the spine. A biopsy was done which was negative for scabies. She was seen by Dr. Amos in pulmonary consultati on, by Dr. Rosales for cardiology. She has acute hypoxic hypercapnic respiratory failure. She has l eft lower extremity cellulitis. She has urinary tract infection. We will continue her on her curre nt regimen. She is on Cipro and I believe she should be on vancomycin as well since she does have c ellulitis. Her BUN and creatinine are 39/0.98. I will dictate my findings to the hospitalist, Dr. Amos and Dr. Rosales. Dictated By: NORMA NORTON MD, JD/GINGER Conf#: [id number] DID#: [id number]
[2016-07-23] MEDS: VANCOMYCIN 1.25 GM in SOD CHLORIDE 0.9% 250 ML IVPB SCH (17:13)
[2016-07-23] MEDS: ATORVASTATIN 40 MG TAB PO SCH (21:53)
[2016-07-23] MEDS: morphine 2 MG INJ IV PRN (21:57)
[2016-07-23] MEDS: INSULIN GLARGINE [LANtus] 3 ML PEN SC SCH (22:54)
[2016-07-24] VITALS (12 sets, daily range): BP systolic 120–155; BP diastolic 59–80; PULSE 67–91; RESP 16–22
[2016-07-24] MEDS: ACCU-CHEK XX SCH (02:28)
[2016-07-24] MEDS: FUROSEMIDE 40 MG INJ IV SCH (05:15)
[2016-07-24] MEDS: CIPROFLOXACIN 500 MG TAB GTB SCH (05:15)
[2016-07-24 06:48] LABS: ADD SCAN DIFF NO
[2016-07-24 06:54] LABS: BASOPHILS % 0.1 % (0.0-2.0); EOSINOPHILS % 0.1 % (0.0-7.0); HEMATOCRIT 29.6 % (37.0-47.0); HEMOGLOBIN 8.7 g/dl (12.0-16.0); LYMPHOCYTES # 0.9 10^3/ul (0.8-2.9); LYMPHOCYTES % 11.5 % (15.0-51.0); MEAN CORPUSCULAR HEMOGLOBIN 28.1 pg (29.0-33.0); MEAN CORPUSCULAR HGB CONC 29.4 g/dl (32.0-37.0); MEAN CORPUSCULAR VOLUME 95.5 fl (82.0-101.0); MEAN PLATELET VOLUME 10.3 fl (7.4-10.4); MONOCYTE # 0.4 10^3/ul (0.3-0.9); MONOCYTES % 4.8 % (0.0-11.0); NEUTROPHIL # 6.8 10^3/ul (1.6-7.5); NEUTROPHILS % 83.1 % (39.0-77.0); PLATELET COUNT 205 10^3/UL (140-415); RED CELL DISTRIBUTION WIDTH 15.2 % (11.5-14.5); WHITE BLOOD COUNT 8.2 10^3/ul (4.8-10.8)
[2016-07-24 07:44] LABS: ALBUMIN 3.2 g/dl (3.3-4.9)
[2016-07-24 07:45] LABS: POTASSIUM 4.2 mmol/L (3.5-5.1)
[2016-07-24 07:47] LABS: ALBUMIN/GLOBULIN RATIO 0.94; BILIRUBIN,INDIRECT 0.2 mg/dl (0-1.1); BILIRUBIN,TOTAL 0.2 mg/dl (0.2-1.3); CREATININE 1.1 mg/dl (0.44-1.00); TOTAL PROTEIN 6.6 g/dl (6.1-8.1)
[2016-07-24 07:48] LABS: CALCIUM 8.8 mg/dl (8.4-10.2); MAGNESIUM 1.8 mg/dl (1.7-2.5)
[2016-07-24] MEDS: ALBUTEROL/IPRATROPIUM (NEB) 3 ML AMP HHN SCH ×4 (08:38→20:01)
[2016-07-24] MEDS: METHYLPREDNISOLONE 40 MG INJ IV SCH ×2 (08:52→20:47)
[2016-07-24] MEDS: ZINC SULFATE 220 MG CAP PO SCH (08:52)
[2016-07-24] MEDS: APIXABAN 5 MG TABLET PO SCH ×2 (08:52→20:48)
[2016-07-24] MEDS: ASCORBIC ACID 500 MG TAB PO SCH (08:52)
[2016-07-24] MEDS: SPIRONOLACTONE 25 MG TAB PO SCH (08:52)
[2016-07-24] MEDS: LEVETIRACETAM 500 MG TAB PO SCH ×2 (08:52→20:48)
[2016-07-24] MEDS: PANTOPRAZOLE (EC) 40 MG TAB PO SCH ×2 (08:53→20:48)
[2016-07-24] MEDS: CHOLECALCIFEROL 1,000 UNIT TAB PO SCH (08:53)
[2016-07-24] MEDS: LOSARTAN 25 MG TAB PO SCH ×2 (08:53→20:48)
[2016-07-24] MEDS: SALMETEROL/FLUTICASONE 250/50 INHA INH SCH ×2 (08:53→20:50)
[2016-07-24] MEDS: METOPROLOL 50 MG TAB PO SCH ×2 (08:53→20:48)
[2016-07-24] MEDS: GABAPENTIN 400 MG CAP PO SCH ×2 (08:53→20:48)
[2016-07-24] MEDS: DIPHENHYDRAMINE 50 MG INJ IV SCH ×2 (08:53→20:48)
[2016-07-24] MEDS: NPH, HUMAN INSULIN ISOPHANE 3ML VIAL SC SCH ×2 (08:58→21:00)
[2016-07-24] MEDS: INSULIN ASPART [NOVOLOG] 3 ML PEN SC SCH ×8 (08:58→21:05)
[2016-07-24] MEDS: HYDROCORTISONE 1% 28.35 GM OINT TOP SCH ×2 (09:02→20:50)
[2016-07-24] MEDS: PE/SHARK OIL/MO/PETROL 30 GM OINT PR SCH (09:02)
--- NOTE | 2016-07-24 09:34 | PN ---
Date/Time of Note Date/Time of Note DATE: 07/24/16 TIME: 09:32 Assessment/Plan VTE Prophylaxis VTE Prophylaxis Intervention: other (Eliquis) Lines/Catheters IV Catheter Type (from [facility]): Saline Lock Urinary Cath still in place: Yes Reason Cath still needed: urinary retention Assessment/Plan Chief Complaint/Hosp Course ASSESSMENT AND PLAN: 1. Acute hypoxic and hypercapnic respiratory failure. Most probably a combination of congestive heart failure and chronic obstructive pulmonary disease. Continue inhaled bronchodilators and supplemental oxygen. Cardiology and Pulmonary following the patient. 2. Congestive heart failure. Acute on chronic diastolic heart failure - slowly improving - Continue diuretics as per Cardiology. 3. Pulmonary hypertension. PA pressure of 73 mmHg. Continue supplemental oxygen. 4. Left lower extremity cellulitis. Continue antibiotics. 5. Urinary tract infection. Continue antibiotics - f/u final cx results - get ID consult as well. 6. Atrial fibrillation. The patient's heart rate is better after IV dig yesterday - f/u CV rec's, Spironolactone, Eliquis (On anticoagulation for stroke prophylaxis) 7. Essential hypertension. Continue antihypertensives including p.r.n. antihypertensives for systolic blood pressure readings greater than 160 mmHg. 8. Diabetic neuropathy. Continue gabapentin. 9. Generalized skin rashes. Skin biopsy negative for any scabies. Continue histamine-1 and histamine-2 blockade. 10. Chronic obstructive pulmonary disease exacerbation. Continue inhaled bronchodilators and tapering dose of steroids. 11. Seizure disorder. Continue anticonvulsants. 12. Vitamin D deficiency. Continue vitamin D supplements. 13. Morbid obesity. Weight reduction advised. 14. Fluid, electrolytes and nutrition. Carbohydrate controlled, low- cholesterol diet. 15. Deep venous thrombosis prophylaxis. Eliquis 16. Gastrointestinal prophylaxis. On proton pump inhibitors. Problems: Subjective 24 Hr Interval Summary Free Text/Dictation Seen by ID team yesterday. No acute events overnight. Exam/Review of Systems Vital Signs Vitals Vital Signs Date Time Temp Pulse Resp B/P Pulse Ox O2 Delivery O2 Flow Rate FiO2 07/24/16 09:07 67 07/24/16 08:39 22 95 Nasal Cannula 2.0 07/24/16 07:24 98.1 127/59 07/22/16 09:58 21 Intake and Output 07/23/16 07/23/16 07/24/16 15:00 23:00 07:00 Intake Total 1110 ml 450 ml Output Total 1700 ml 1300 ml Balance -590 ml -850 ml Exam GENERAL: This is a morbidly obese female lying in bed in no apparent distress. HEENT: Head normocephalic and atraumatic. Eyes: Anicteric sclerae. Conjunctivae clear. ENT: Nasal septum is midline. Oral mucosa is moist. NECK: Supple. No JVD noticed. RESPIRATORY: Bilaterally diminished breath sounds. No use of accessory muscles of respiration. Bilateral fine rales. CARDIAC: Irregularly irregular rhythm. Rate controlled. Systolic murmur. ABDOMEN: Soft, obese. Bowel sounds hypoactive in all 4 quadrants. EXTREMITIES: Bilateral lower extremity 2+ pitting edema. Peripheral pulses not palpable. Left penaloza area erythema with multiple wounds and some tenderness to touch. NEUROLOGIC: The patient is awake, alert, oriented. Cranial nerves are grossly intact. SKIN: Multiple maculopapular lesions with evidence of scratching of the skin. Results Result Diagram: 07/24/16 0600 07/24/16 0600 Results 24 hrs Laboratory Tests Test 07/23/16 09:45 07/23/16 13:42 07/23/16 17:35 07/23/16 22:48 Digoxin Level < 0.4 L Bedside Glucose 193 188 188 Test 07/24/16 02:26 07/24/16 06:00 07/24/16 08:07 Bedside Glucose 181 185 White Blood Count 8.2 # Red Blood Count 3.10 L Hemoglobin 8.7 L Hematocrit 29.6 L Mean Corpuscular Volume 95.5 Mean Corpuscular Hemoglobin 28.1 L Mean Corpuscular Hemoglobin Concent 29.4 L Red Cell Distribution Width 15.2 H Platelet Count 205 Mean Platelet Volume 10.3 Neutrophils % 83.1 H Lymphocytes % 11.5 L Monocytes % 4.8 Eosinophils % 0.1 Basophils % 0.1 Nucleated Red Blood Cells % 0.0 Neutrophils # 6.8 Lymphocytes # 0.9 Monocytes # 0.4 Eosinophils # 0.0 Basophils # 0.0 Nucleated Red Blood Cells # 0.0 Sodium Level 138 Potassium Level 4.2 Chloride Level 96 L Carbon Dioxide Level 34 H Anion Gap 12 Blood Urea Nitrogen 41 H Creatinine 1.10 H Glucose Level 187 Calcium Level 8.8 Magnesium Level 1.8 Total Bilirubin 0.2 Direct Bilirubin 0.00 Indirect Bilirubin 0.2 Aspartate Amino Transf (AST/SGOT) 21 Alanine Aminotransferase (ALT/SGPT) 20 Alkaline Phosphatase 71 B-Type Natriuretic Peptide 5820 H Total Protein 6.6 Albumin 3.2 L Globulin 3.40 H Albumin/Globulin Ratio 0.94 Medications Medications Current Medications Lorazepam (Ativan) 0.5 mg Q6H PRN IV ANXIETY Last administered on 07/23/16 01: 24; Admin Dose 0.5 MG; Start 07/20/16 at 17:00 Eye Lubricant (Artificial Tears Oph) 1 drop DAILY PRN BOTH EYES DRY EYES; Start 07/20/16 at 17:00 Ascorbic Acid (Vitamin C) 500 mg DAILY PO Last administered on 07/24/16 08:52 ; Admin Dose 500 MG; Start 07/21/16 at 09:00 Atorvastatin Calcium (Lipitor) 40 mg HS PO Last administered on 07/23/16 21:53 ; Admin Dose 40 MG; Start 07/20/16 at 21:00 Docusate Sodium (Colace) 200 mg QHS PRN PO CONSTIPATION; Start 07/20/16 at 17: 00 Gabapentin (Neurontin) 400 mg BID PO Last administered on 07/24/16 08:53; Admin Dose 400 MG; Start 07/20/16 at 21:00 Levetiracetam (Keppra) 375 mg BID PO Last administered on 07/24/16 08:52; Admin Dose 375 MG; Start 07/20/16 at 21:00 Losartan Potassium (Cozaar) 25 mg BID PO Last administered on 07/24/16 08:53; Admin Dose 25 MG; Start 07/20/16 at 21:00 Metoprolol Tartrate (Lopressor) 50 mg BID PO Last administered on 07/24/16 08: 53; Admin Dose 50 MG; Start 07/20/16 at 21:00 Pantoprazole (Protonix Tab) 40 mg BID PO Last administered on 07/24/16 08:53; Admin Dose 40 MG; Start 07/20/16 at 21:00 Salmeterol Xinafoate/ Fluticasone (Advair 250/50 Diskus) 1 inh BID INH Last administered on 07/24/16 08:53; Admin Dose 1 INH; Start 07/20/16 at 21:00 Zinc Sulfate (Zinc Sulfate) 220 mg DAILY PO Last administered on 07/24/16 08: 52; Admin Dose 220 MG; Start 07/21/16 at 09:00 Diphenhydramine HCl (Benadryl) 25 mg Q12H IV Last administered on 07/24/16 08: 53; Admin Dose 25 MG; Start 07/20/16 at 21:00 Miscellaneous Information 1 ea NOTE XX ; Start 07/20/16 at 17:00 Glucose (Glutose) 15 gm Q15M PRN PO DECREASED GLUCOSE; Start 07/20/16 at 17:00 Glucose (Glutose) 22.5 gm Q15M PRN PO DECREASED GLUCOSE; Start 07/20/16 at 17: 00 Dextrose (D50w Syringe) 25 ml Q15M PRN IV DECREASED GLUCOSE; Start 07/20/16 at 17:00 Dextrose (D50w Syringe) 50 ml Q15M PRN IV DECREASED GLUCOSE; Start 07/20/16 at 17:00 Glucagon (Glucagen) 1 mg Q15M PRN IM DECREASED GLUCOSE; Start 07/20/16 at 17:00 Glucose (Glutose) 15 gm Q15M PRN BUCCAL DECREASED GLUCOSE; Start 07/20/16 at 17 :00 Hydralazine HCl (Apresoline) 10 mg Q6H PRN IV SBP>160; Start 07/20/16 at 17:30 Ondansetron HCl (Zofran Inj) 4 mg Q4H PRN IV NAUSEA AND/OR VOMITING Last administered on 07/20/16 18:57; Admin Dose 4 MG; Start 07/20/16 at 19:00 Cholecalciferol (Vitamin D) 1,000 unit DAILY PO Last administered on 07/24/16 08:53; Admin Dose 1,000 UNIT; Start 07/21/16 at 09:00 Insulin Glargine (Lantus) 40 unit DAILY@20 SC Last administered on 07/23/16 22 :54; Admin Dose 40 UNIT; Start 07/21/16 at 20:31 Insulin Human NPH (Humulin N) 12 unit BID@08,20 SC Last administered on 08:58; Admin Dose 12 UNIT; Start 07/21/16 at 20:33 Morphine Sulfate (morphine) 4 mg Q4H PRN IV Pain Last administered on 21:57; Admin Dose 4 MG; Start 07/22/16 at 14:30 Methylprednisolone Sodium Succinate (Solu-Medrol) 20 mg BID@08,20 IV Last administered on 07/24/16 08:52; Admin Dose 20 MG; Start 07/22/16 at 20:00 Diagnostic Test (Pha) (Accu-Chek) 1 ea 02 XX Last administered on 07/24/16 02: 28; Admin Dose 1 EA; Start 07/23/16 at 02:00 Ciprofloxacin (Cipro) 500 mg DAILY@06 GTB Last administered on 07/24/16 05:15 ; Admin Dose 500 MG; Start 07/23/16 at 06:00 Apixaban (Eliquis) 5 mg BID PO Last administered on 07/24/16 08:52; Admin Dose 5 MG; Start 07/23/16 at 09:30 Spironolactone (Aldactone) 25 mg DAILY PO Last administered on 07/24/16 08:52 ; Admin Dose 25 MG; Start 07/23/16 at 09:30 Hydrocortisone (Hydrocortisone 1% Oint) 1 applic BID TOP Last administered on 09:02; Admin Dose 1 APPLIC; Start 07/23/16 at 13:00 Phenyleph/Shark Oil/Min Oil/ Petrol 1 applic 1 applic DAILY AL Last administered on 07/24/16 09:02; Admin Dose 1 APPLIC; Start 07/23/16 at 14:00 Vancomycin HCl/ Sodium Chloride (Vancocin/NS) 250 ml @ 83.333 mls/ hr Q24H IVPB Last administered on 07/23/16 17:13; Admin Dose 83.333 MLS/HR; Start at 16:00 JANET CHRISTINE Jul 24, 2016 09:34
--- NOTE | 2016-07-24 12:54 | CONS ---
Date/Time of Note Date/Time of Note DATE: 07/24/16 TIME: 12:50 Consult Date/Type/Reason Admit Date/Time Jul 20, 2016 at 14:10 Initial Consult Date 07/21/16 Type of Consultation: Pulmonary Subjective Patient comfortable this morning still has audible expiratory wheezing Objective Vital Signs Date Time Temp Pulse Resp B/P Pulse Ox O2 Delivery O2 Flow Rate FiO2 07/24/16 12:33 2.0 07/24/16 12:32 77 22 97 Nasal Cannula 07/24/16 10:55 98.1 120/60 07/22/16 09:58 21 Intake and Output 07/23/16 07/23/16 07/24/16 14:59 22:59 06:59 Intake Total 1110 ml 450 ml Output Total 1700 ml 1300 ml Balance -590 ml -850 ml Exam GENERAL: Moderately obese lady comfortable at rest no acute distress VITAL SIGNS: per chart NECK: Supple. No JVD or lymphadenopathy. CARDIAC EXAM: S1, S2. No added sounds or murmurs. CHEST: clear bilaterally, No added sounds, rales or wheezes ABDOMEN: Soft, nontender. No guarding or rebound. EXTREMITIES: No cyanosis, clubbing or edema. NEUROLOGIC: Generalized weakness. No focal deficits. Results/Medications Result Diagram: 07/24/16 0600 07/24/16 0600 Results 24 hrs Laboratory Tests Test 07/23/16 13:42 07/23/16 17:35 07/23/16 22:48 07/24/16 02:26 Bedside Glucose 193 188 188 181 Test 07/24/16 06:00 07/24/16 08:07 07/24/16 11:39 White Blood Count 8.2 # Red Blood Count 3.10 L Hemoglobin 8.7 L Hematocrit 29.6 L Mean Corpuscular Volume 95.5 Mean Corpuscular Hemoglobin 28.1 L Mean Corpuscular Hemoglobin Concent 29.4 L Red Cell Distribution Width 15.2 H Platelet Count 205 Mean Platelet Volume 10.3 Neutrophils % 83.1 H Lymphocytes % 11.5 L Monocytes % 4.8 Eosinophils % 0.1 Basophils % 0.1 Nucleated Red Blood Cells % 0.0 Neutrophils # 6.8 Lymphocytes # 0.9 Monocytes # 0.4 Eosinophils # 0.0 Basophils # 0.0 Nucleated Red Blood Cells # 0.0 Sodium Level 138 Potassium Level 4.2 Chloride Level 96 L Carbon Dioxide Level 34 H Anion Gap 12 Blood Urea Nitrogen 41 H Creatinine 1.10 H Glucose Level 187 Calcium Level 8.8 Magnesium Level 1.8 Total Bilirubin 0.2 Direct Bilirubin 0.00 Indirect Bilirubin 0.2 Aspartate Amino Transf (AST/SGOT) 21 Alanine Aminotransferase (ALT/SGPT) 20 Alkaline Phosphatase 71 B-Type Natriuretic Peptide 5820 H Total Protein 6.6 Albumin 3.2 L Globulin 3.40 H Albumin/Globulin Ratio 0.94 Bedside Glucose 185 100 Medications Current Medications Lorazepam (Ativan) 0.5 mg Q6H PRN IV ANXIETY Last administered on 07/23/16 01: 24; Admin Dose 0.5 MG; Start 07/20/16 at 17:00 Eye Lubricant (Artificial Tears Oph) 1 drop DAILY PRN BOTH EYES DRY EYES; Start 07/20/16 at 17:00 Ascorbic Acid (Vitamin C) 500 mg DAILY PO Last administered on 07/24/16 08:52 ; Admin Dose 500 MG; Start 07/21/16 at 09:00 Atorvastatin Calcium (Lipitor) 40 mg HS PO Last administered on 07/23/16 21:53 ; Admin Dose 40 MG; Start 07/20/16 at 21:00 Docusate Sodium (Colace) 200 mg QHS PRN PO CONSTIPATION; Start 07/20/16 at 17: 00 Gabapentin (Neurontin) 400 mg BID PO Last administered on 07/24/16 08:53; Admin Dose 400 MG; Start 07/20/16 at 21:00 Levetiracetam (Keppra) 375 mg BID PO Last administered on 07/24/16 08:52; Admin Dose 375 MG; Start 07/20/16 at 21:00 Losartan Potassium (Cozaar) 25 mg BID PO Last administered on 07/24/16 08:53; Admin Dose 25 MG; Start 07/20/16 at 21:00 Metoprolol Tartrate (Lopressor) 50 mg BID PO Last administered on 07/24/16 08: 53; Admin Dose 50 MG; Start 07/20/16 at 21:00 Pantoprazole (Protonix Tab) 40 mg BID PO Last administered on 07/24/16 08:53; Admin Dose 40 MG; Start 07/20/16 at 21:00 Salmeterol Xinafoate/ Fluticasone (Advair 250/50 Diskus) 1 inh BID INH Last administered on 07/24/16 08:53; Admin Dose 1 INH; Start 07/20/16 at 21:00 Zinc Sulfate (Zinc Sulfate) 220 mg DAILY PO Last administered on 07/24/16 08: 52; Admin Dose 220 MG; Start 07/21/16 at 09:00 Diphenhydramine HCl (Benadryl) 25 mg Q12H IV Last administered on 07/24/16 08: 53; Admin Dose 25 MG; Start 07/20/16 at 21:00 Miscellaneous Information 1 ea NOTE XX ; Start 07/20/16 at 17:00 Glucose (Glutose) 15 gm Q15M PRN PO DECREASED GLUCOSE; Start 07/20/16 at 17:00 Glucose (Glutose) 22.5 gm Q15M PRN PO DECREASED GLUCOSE; Start 07/20/16 at 17: 00 Dextrose (D50w Syringe) 25 ml Q15M PRN IV DECREASED GLUCOSE; Start 07/20/16 at 17:00 Dextrose (D50w Syringe) 50 ml Q15M PRN IV DECREASED GLUCOSE; Start 07/20/16 at 17:00 Glucagon (Glucagen) 1 mg Q15M PRN IM DECREASED GLUCOSE; Start 07/20/16 at 17:00 Glucose (Glutose) 15 gm Q15M PRN BUCCAL DECREASED GLUCOSE; Start 07/20/16 at 17 :00 Hydralazine HCl (Apresoline) 10 mg Q6H PRN IV SBP>160; Start 07/20/16 at 17:30 Ondansetron HCl (Zofran Inj) 4 mg Q4H PRN IV NAUSEA AND/OR VOMITING Last administered on 07/20/16 18:57; Admin Dose 4 MG; Start 07/20/16 at 19:00 Cholecalciferol (Vitamin D) 1,000 unit DAILY PO Last administered on 07/24/16 08:53; Admin Dose 1,000 UNIT; Start 07/21/16 at 09:00 Insulin Glargine (Lantus) 40 unit DAILY@20 SC Last administered on 07/23/16 22 :54; Admin Dose 40 UNIT; Start 07/21/16 at 20:31 Insulin Human NPH (Humulin N) 12 unit BID@08,20 SC Last administered on 08:58; Admin Dose 12 UNIT; Start 07/21/16 at 20:33 Morphine Sulfate (morphine) 4 mg Q4H PRN IV Pain Last administered on 21:57; Admin Dose 4 MG; Start 07/22/16 at 14:30 Methylprednisolone Sodium Succinate (Solu-Medrol) 20 mg BID@08,20 IV Last administered on 07/24/16 08:52; Admin Dose 20 MG; Start 07/22/16 at 20:00 Diagnostic Test (Pha) (Accu-Chek) 1 ea 02 XX Last administered on 07/24/16 02: 28; Admin Dose 1 EA; Start 07/23/16 at 02:00 Ciprofloxacin (Cipro) 500 mg DAILY@06 GTB Last administered on 07/24/16 05:15 ; Admin Dose 500 MG; Start 07/23/16 at 06:00 Apixaban (Eliquis) 5 mg BID PO Last administered on 07/24/16 08:52; Admin Dose 5 MG; Start 07/23/16 at 09:30 Spironolactone (Aldactone) 25 mg DAILY PO Last administered on 07/24/16 08:52 ; Admin Dose 25 MG; Start 07/23/16 at 09:30 Hydrocortisone (Hydrocortisone 1% Oint) 1 applic BID TOP Last administered on 09:02; Admin Dose 1 APPLIC; Start 07/23/16 at 13:00 Phenyleph/Shark Oil/Min Oil/ Petrol 1 applic 1 applic DAILY SD Last administered on 07/24/16 09:02; Admin Dose 1 APPLIC; Start 07/23/16 at 14:00 Vancomycin HCl/ Sodium Chloride (Vancocin/NS) 250 ml @ 83.333 mls/ hr Q24H IVPB Last administered on 07/23/16 17:13; Admin Dose 83.333 MLS/HR; Start at 16:00 Hydroxyzine HCl (Atarax) 50 mg TID PO ; Start 07/24/16 at 13:00; Status UNV Assessment/Plan Chief Complaint/Hosp Course Assessment 1. Acute hypoxemic respiratory failure 2. Congestive cardiac failure with pulmonary hypertension likely multifactorial , history of atrial fibrillation. 3. Anemia of unclear etiology 4. Acute hypoxemic respiratory distress 5. Probable underlying obstructive sleep apnea 6. UTI Plan 1. Continue supplemental O2 as needed 2. Continue diuresis and cardiac recommendations 3. Encourage out of bed 4. Consider workup for anemia 5. Outpatient sleep study and pulmonary follow-up with me 6. Continues anticoagulation with Eliquis 7. Antibiotics per ID for UTI Problems: SD HUSSEIN [facility], [facility] Jul 24, 2016 12:54
[2016-07-24] MEDS: hydrOXYzine HCL 25 MG TAB PO SCH ×2 (13:52→20:49)
--- NOTE | 2016-07-24 15:31 | PN ---
DATE: 07/24/2016 CARDIOLOGY FOLLOWUP SUBJECTIVE: Discussed with the staff. Rhythm strip was reviewed. The patient remains in atrial fi brillation. Heart rate has remained stable. No chest pain or pressure. No palpitation. No shortn ess of breath. Complains of itchiness. MEDICATIONS: Reviewed. OBJECTIVE: VITAL SIGNS: Temperature 98, heart rate of 77, blood pressure of 120/60, respiratory rate of 20, sa turating 97%. HEENT: Normocephalic, atraumatic. Obese female. Pupils are equal. CARDIOVASCULAR: Irregularly irregular. PULMONARY: With no wheezes. GASTROINTESTINAL: Soft, nontender. Obese. EXTREMITIES: With trivial lower extremity edema. NEUROLOGIC: Awake, responds appropriately. PSYCHIATRIC: Appears to be calm. LABORATORY: I's and O's show 1560 in and 3000 out. Laboratory showed WBC of 8.2, hemoglobin 8.7, p latelets of 205. Sodium 138, potassium 4.2, BUN of 41, creatinine of 1.1, glucose of 187. ____ of 5820. ASSESSMENT AND PLAN: 1. Congestive heart failure. 2. Atrial fibrillation, chronic. 3. Lower extremity edema and cellulitis. 4. Diabetes. 5. Chronic obstructive pulmonary disease. 6. Obstructive sleep apnea. RECOMMENDATIONS: I will change the Lasix to p.o. starting tomorrow. Continue the rest of her cardi ac care. Heart remains stable. The patient is anticoagulated. No further cardiac workup. We will follow up p.r.n. Dictated By: ENEDINA RONQUILLO/GINGER Conf#: [id number] DID#: [id number]
[2016-07-24] MEDS: CEFTRIAXONE 1 GM/50 ML (PMX) 50 ML IVPB SCH (16:41)
[2016-07-24] MEDS: VANCOMYCIN 1.25 GM in SOD CHLORIDE 0.9% 250 ML IVPB SCH (16:42)
[2016-07-24] MEDS: FUROSEMIDE 40 MG TAB PO SCH (17:27)
--- NOTE | 2016-07-24 17:47 | PN ---
DATE: 07/24/2016 SUBJECTIVE: No acute changes. The patient is awake, lying comfortably in bed. No fevers. WBC 8.2 , no bands. Neutrophils 83.1. BUN 41, creatinine 1.10. ANTIMICROBIALS: 1. Vancomycin. 2. Ciprofloxacin. MICROBIOLOGY: Urine culture on 07/20/2016 grew Klebsiella pneumoniae and Proteus mirabilis that was resistant to Levaquin. PHYSICAL EXAMINATION: GENERAL: This is a fragile, chronically ill-appearing, elderly woman who is awake, in no distress. HEENT: Head atraumatic, normocephalic. Sclerae anicteric. Buccal mucosa dry. NECK: Supple, trachea midline. CHEST: Rise symmetrical. Breath sounds diminished to bases. HEART: S1, S2. ABDOMEN: Soft, bowel tones present. EXTREMITIES: Without cyanosis. ASSESSMENT: 1. Polymicrobial urinary tract infection. 2. Status post acute hypoxemic respiratory failure secondary to congestive heart failure exacerbati on. 3. Pulmonary hypertension. 4. Left lower extremity cellulitis. 5. Diabetes. PLAN: The patient remains stable. We are going to change ciprofloxacin to Rocephin. Continue vanc omycin. Follow pulmonary and cardiology recommendations. Dictated By: GHADA DANIELLE COCOA ROASTER for NORMA RODRIGUEZ/GINGER Conf#: [id number] DID#: [id number]
[2016-07-24] MEDS: ATORVASTATIN 40 MG TAB PO SCH (20:48)
[2016-07-24] MEDS: INSULIN GLARGINE [LANtus] 3 ML PEN SC SCH (21:02)
[2016-07-25] VITALS (14 sets, daily range): BP systolic 117–167; BP diastolic 54–85; PULSE 68–90; RESP 18–21
[2016-07-25] MEDS: ACCU-CHEK XX SCH (02:00)
[2016-07-25] MEDS: FUROSEMIDE 40 MG TAB PO SCH ×2 (05:17→17:44)
[2016-07-25 06:27] LABS: ADD SCAN DIFF NO
[2016-07-25 06:36] LABS: BASOPHILS % 0.3 % (0.0-2.0); HEMATOCRIT 29.8 % (37.0-47.0); HEMOGLOBIN 9.2 g/dl (12.0-16.0); LYMPHOCYTES # 0.8 10^3/ul (0.8-2.9); LYMPHOCYTES % 11.3 % (15.0-51.0); MEAN CORPUSCULAR HGB CONC 30.9 g/dl (32.0-37.0); MEAN PLATELET VOLUME 10.1 fl (7.4-10.4); MONOCYTE # 0.5 10^3/ul (0.3-0.9); MONOCYTES % 6.7 % (0.0-11.0); NEUTROPHIL # 5.7 10^3/ul (1.6-7.5); NEUTROPHILS % 81.3 % (39.0-77.0); PLATELET COUNT 199 10^3/UL (140-415); RED BLOOD COUNT 3.17 10^6/ul (4.20-5.40); RED CELL DISTRIBUTION WIDTH 14.8 % (11.5-14.5)
[2016-07-25 06:57] LABS: POTASSIUM 3.9 mmol/L (3.5-5.1)
[2016-07-25 06:58] LABS: MAGNESIUM 1.7 mg/dl (1.7-2.5); PHOSPHORUS 4.5 mg/dl (2.5-4.9)
[2016-07-25 06:59] LABS: CREATININE 1.08 mg/dl (0.44-1.00)
[2016-07-25] MEDS: GABAPENTIN 400 MG CAP PO SCH ×2 (08:49→21:47)
[2016-07-25] MEDS: LEVETIRACETAM 500 MG TAB PO SCH ×2 (08:49→21:47)
[2016-07-25] MEDS: ASCORBIC ACID 500 MG TAB PO SCH (08:49)
[2016-07-25] MEDS: PANTOPRAZOLE (EC) 40 MG TAB PO SCH ×2 (08:49→21:47)
[2016-07-25] MEDS: METHYLPREDNISOLONE 40 MG INJ IV SCH ×2 (08:49→21:48)
[2016-07-25] MEDS: DIPHENHYDRAMINE 50 MG INJ IV SCH ×2 (08:49→21:48)
[2016-07-25] MEDS: SPIRONOLACTONE 25 MG TAB PO SCH (08:49)
[2016-07-25] MEDS: SALMETEROL/FLUTICASONE 250/50 INHA INH SCH ×2 (08:49→21:49)
[2016-07-25] MEDS: hydrOXYzine HCL 25 MG TAB PO SCH ×3 (08:49→21:47)
[2016-07-25] MEDS: ZINC SULFATE 220 MG CAP PO SCH (08:51)
[2016-07-25] MEDS: APIXABAN 5 MG TABLET PO SCH ×2 (08:51→21:48)
[2016-07-25] MEDS: CHOLECALCIFEROL 1,000 UNIT TAB PO SCH (08:51)
[2016-07-25] MEDS: LOSARTAN 25 MG TAB PO SCH ×2 (08:51→21:48)
[2016-07-25] MEDS: METOPROLOL 50 MG TAB PO SCH ×2 (08:52→21:47)
[2016-07-25] MEDS: INSULIN ASPART [NOVOLOG] 3 ML PEN SC SCH ×8 (08:53→21:58)
[2016-07-25] MEDS: NPH, HUMAN INSULIN ISOPHANE 3ML VIAL SC SCH ×2 (08:55→21:58)
[2016-07-25] MEDS: HYDROCORTISONE 1% 28.35 GM OINT TOP SCH ×2 (08:56→21:56)
[2016-07-25] MEDS: PE/SHARK OIL/MO/PETROL 30 GM OINT PR SCH (08:58)
[2016-07-25] MEDS: ALBUTEROL/IPRATROPIUM (NEB) 3 ML AMP HHN SCH ×4 (09:33→21:09)
--- NOTE | 2016-07-25 13:24 | PN ---
Date/Time of Note Date/Time of Note DATE: 07/25/16 TIME: 13:22 Assessment/Plan VTE Prophylaxis VTE Prophylaxis Intervention: LMWH Lines/Catheters IV [facility]ter Type (from [facility]): [facility] Urinary Cath still in place: Yes Reason Cath still needed: urinary retention Assessment/Plan Problems: (1) Acute exacerbation of CHF (congestive heart failure) Status: Acute Comment: She is on treatments and improving nicely continue therapeutic Qualifiers: Congestive heart failure type: unspecified congestive heart failure type Qualified Code: I50.9 - Acute on chronic congestive heart failure, unspecified congestive heart failure type (2) Chronic atrial fibrillation Status: Chronic Comment: Rate is controlled and she is anticoagulated (3) Obstructive sleep apnea Status: Chronic Comment: Nocturnal BiPAP (4) Diabetes mellitus type 2 in obese Status: Chronic Comment: Adequately controlled (5) Morbid obesity with BMI of 45.0-49.9, adult Status: Chronic Comment: Calorie restriction diet Subjective 24 Hr Interval Summary Free Text/Dictation Vibrant older woman receiving breathing treatment Respiratory: no complaints (Reports improved) Cardiovascular: no complaints Gastrointestinal: no complaints Skin: pruritis Exam/Review of Systems Vital Signs Vitals Vital Signs Date Time Temp Pulse Resp B/P Pulse Ox O2 Delivery O2 Flow Rate FiO2 07/25/16 13:19 84 20 96 Nasal Cannula 2.0 07/25/16 11:18 98.0 167/72 07/22/16 09:58 21 Intake and Output 07/24/16 07/24/16 07/25/16 15:00 23:00 07:00 Intake Total 880 ml 780 ml Output Total 2550 ml 2100 ml Balance -1670 ml -1320 ml Exam Constitutional: alert, oriented Neck: non-tender, supple Respiratory: crackles/rales, normal air movement Cardiovascular: irregular rhythm, nl pulses Gastrointestinal: nl liver, spleen, non-tender, soft Extremities: other (Onychomycosis) Results Result Diagram: 07/25/16 0551 07/25/16 0551 Results 24 hrs Laboratory Tests Test 07/24/16 17:24 07/24/16 20:45 07/25/16 02:45 07/25/16 05:51 Bedside Glucose 79 252 H 158 White Blood Count 7.0 Red Blood Count 3.17 L Hemoglobin 9.2 L Hematocrit 29.8 L Mean Corpuscular Volume 94.0 Mean Corpuscular Hemoglobin 29.0 Mean Corpuscular Hemoglobin Concent 30.9 L Red Cell Distribution Width 14.8 H Platelet Count 199 Mean Platelet Volume 10.1 Neutrophils % 81.3 H Lymphocytes % 11.3 L Monocytes % 6.7 Eosinophils % 0.0 Basophils % 0.3 Nucleated Red Blood Cells % 0.0 Neutrophils # 5.7 Lymphocytes # 0.8 Monocytes # 0.5 Eosinophils # 0.0 Basophils # 0.0 Nucleated Red Blood Cells # 0.0 Sodium Level 138 Potassium Level 3.9 Chloride Level 94 L Carbon Dioxide Level 36 H Anion Gap 12 Blood Urea Nitrogen 44 H Creatinine 1.08 H Glucose Level 173 Calcium Level 9.0 Phosphorus Level 4.5 Magnesium Level 1.7 Test 07/25/16 08:03 07/25/16 11:58 Bedside Glucose 173 102 Medications Medications Current Medications Lorazepam (Ativan) 0.5 mg Q6H PRN IV ANXIETY Last administered on 07/23/16 01: 24; Admin Dose 0.5 MG; Start 07/20/16 at 17:00 Eye Lubricant (Artificial Tears Oph) 1 drop DAILY PRN BOTH EYES DRY EYES; Start 07/20/16 at 17:00 Ascorbic Acid (Vitamin C) 500 mg DAILY PO Last administered on 07/25/16 08:49 ; Admin Dose 500 MG; Start 07/21/16 at 09:00 Atorvastatin Calcium (Lipitor) 40 mg HS PO Last administered on 07/24/16 20:48 ; Admin Dose 40 MG; Start 07/20/16 at 21:00 Docusate Sodium (Colace) 200 mg QHS PRN PO CONSTIPATION; Start 07/20/16 at 17: 00 Gabapentin (Neurontin) 400 mg BID PO Last administered on 07/25/16 08:49; Admin Dose 400 MG; Start 07/20/16 at 21:00 Levetiracetam (Keppra) 375 mg BID PO Last administered on 07/25/16 08:49; Admin Dose 375 MG; Start 07/20/16 at 21:00 Losartan Potassium (Cozaar) 25 mg BID PO Last administered on 07/25/16 08:51; Admin Dose 25 MG; Start 07/20/16 at 21:00 Metoprolol Tartrate (Lopressor) 50 mg BID PO Last administered on 07/25/16 08: 52; Admin Dose 50 MG; Start 07/20/16 at 21:00 Pantoprazole (Protonix Tab) 40 mg BID PO Last administered on 07/25/16 08:49; Admin Dose 40 MG; Start 07/20/16 at 21:00 Salmeterol Xinafoate/ Fluticasone (Advair 250/50 Diskus) 1 inh BID INH Last administered on 07/25/16 08:49; Admin Dose 1 INH; Start 07/20/16 at 21:00 Zinc Sulfate (Zinc Sulfate) 220 mg DAILY PO Last administered on 07/25/16 08: 51; Admin Dose 220 MG; Start 07/21/16 at 09:00 Diphenhydramine HCl (Benadryl) 25 mg Q12H IV Last administered on 07/25/16 08: 49; Admin Dose 25 MG; Start 07/20/16 at 21:00 Miscellaneous Information 1 ea NOTE XX ; Start 07/20/16 at 17:00 Glucose (Glutose) 15 gm Q15M PRN PO DECREASED GLUCOSE; Start 07/20/16 at 17:00 Glucose (Glutose) 22.5 gm Q15M PRN PO DECREASED GLUCOSE; Start 07/20/16 at 17: 00 Dextrose (D50w Syringe) 25 ml Q15M PRN IV DECREASED GLUCOSE; Start 07/20/16 at 17:00 Dextrose (D50w Syringe) 50 ml Q15M PRN IV DECREASED GLUCOSE; Start 07/20/16 at 17:00 Glucagon (Glucagen) 1 mg Q15M PRN IM DECREASED GLUCOSE; Start 07/20/16 at 17:00 Glucose (Glutose) 15 gm Q15M PRN BUCCAL DECREASED GLUCOSE; Start 07/20/16 at 17 :00 Hydralazine HCl (Apresoline) 10 mg Q6H PRN IV SBP>160; Start 07/20/16 at 17:30 Ondansetron HCl (Zofran Inj) 4 mg Q4H PRN IV NAUSEA AND/OR VOMITING Last administered on 07/20/16 18:57; Admin Dose 4 MG; Start 07/20/16 at 19:00 Cholecalciferol (Vitamin D) 1,000 unit DAILY PO Last administered on 07/25/16 08:51; Admin Dose 1,000 UNIT; Start 07/21/16 at 09:00 Insulin Glargine (Lantus) 40 unit DAILY@20 SC Last administered on 07/24/16 21 :02; Admin Dose 40 UNIT; Start 07/21/16 at 20:31 Insulin Human NPH (Humulin N) 12 unit BID@08,20 SC Last administered on 08:55; Admin Dose 12 UNIT; Start 07/21/16 at 20:33 Morphine Sulfate (morphine) 4 mg Q4H PRN IV Pain Last administered on 21:57; Admin Dose 4 MG; Start 07/22/16 at 14:30 Methylprednisolone Sodium Succinate (Solu-Medrol) 20 mg BID@08,20 IV Last administered on 07/25/16 08:49; Admin Dose 20 MG; Start 07/22/16 at 20:00 Diagnostic Test (Pha) (Accu-Chek) 1 ea 02 XX Last administered on 07/24/16 02: 28; Admin Dose 1 EA; Start 07/23/16 at 02:00 Apixaban (Eliquis) 5 mg BID PO Last administered on 07/25/16 08:51; Admin Dose 5 MG; Start 07/23/16 at 09:30 Spironolactone (Aldactone) 25 mg DAILY PO Last administered on 07/25/16 08:49 ; Admin Dose 25 MG; Start 07/23/16 at 09:30 Hydrocortisone (Hydrocortisone 1% Oint) 1 applic BID TOP Last administered on 08:56; Admin Dose 1 APPLIC; Start 07/23/16 at 13:00 Phenyleph/Shark Oil/Min Oil/ Petrol 1 applic 1 applic DAILY DC Last administered on 07/25/16 08:58; Admin Dose 1 APPLIC; Start 07/23/16 at 14:00 Vancomycin HCl/ Sodium Chloride (Vancocin/NS) 250 ml @ 83.333 mls/ hr Q24H IVPB Last administered on 07/24/16 16:42; Admin Dose 83.333 MLS/HR; Start at 16:00 Hydroxyzine HCl 50 mg 50 mg TID PO Last administered on 07/25/16 13:06; Admin Dose 50 MG; Start 07/24/16 at 13:00 Ceftriaxone Sodium (Rocephin) 50 ml @ 100 mls/hr Q24H IVPB Last administered on 07/24/16t 16:41; Admin Dose 100 MLS/HR; Start 07/24/16 at 16:30 MARGARET NAVARRO MD Jul 25, 2016 13:24
--- NOTE | 2016-07-25 13:50 | CONS ---
Date/Time of Note Date/Time of Note DATE: 07/25/16 TIME: 13:49 Assessment/Plan Assessment/Plan Chief Complaint/Hosp Course ID PROGRESS NOTE TOTAL ABX DAY # => Vanco IV + Ceftriaxone s/p Cipro 24H INTERVAL SUMMARY * 85 yo F lethargic, super morbid obese, NAD on supplemental O2 via NC * She resists exam due to feeling cold "[place]" -- OK with blankets on PHYSICAL EXAMINATION: GENERAL: VSS, NAD, obese F, O2 via NC, no fevers HEENT: Unremarkable, sun damaged skin NECK: Supple, trach-> midline CHEST: Equal chest rise bilaterally, without dyspnea on observation HEART: Pulse RRR ABDOMEN: Soft, benign EXTREMITIES: Warm, dependent edema BUEXT, bumpy thick sun damaged skin BUEXT, BLEXT chronic venous stasis changes, skin scratch excoriations w/LLEXT cellulitis SKIN: Warm, dry ID ASSESSMENT: 85 yo F admitted with: 1. Polymicrobial GNR urinary tract infection. * URINE CULTURE Final Organism 1 K.PNEUMONIAE SSP PNEUMONIAE COLONY COUNT >100,000 CFU/ml Organism 2 PROTEUS MIRABILIS COLONY COUNT >100,000 CFU/ml 2. Status post acute hypoxemic respiratory failure secondary to congestive heart failure exacerbation. 3. Pulmonary hypertension. 4. Left lower extremity cellulitis. 5. Diabetes. INVASIVES: * PIV ABX ALLERGIES: KNDA CURRENT ABX: DAY # => Vanco IV + Ceftriaxone s/p ID RECOMMENDATIONS: 1. Continue current ABX over the weekend and monitor clinical status . Problems: Consultation Date/Type/Reason Admit Date/Time Jul 20, 2016 at 14:10 Initial Consult Date 07/21/16 Type of Consultation: ID Exam/Review of Systems Vital Signs Vitals Vital Signs Date Time Temp Pulse Resp B/P Pulse Ox O2 Delivery O2 Flow Rate FiO2 07/25/16 13:19 84 20 96 Nasal Cannula 2.0 07/25/16 11:18 98.0 167/72 07/22/16 09:58 21 Intake and Output 07/24/16 07/24/16 07/25/16 15:00 23:00 07:00 Intake Total 880 ml 780 ml Output Total 2550 ml 2100 ml Balance -1670 ml -1320 ml Results Result Diagram: 07/25/16 0551 07/25/16 0551 Results 24 hrs Laboratory Tests Test 07/24/16 17:24 07/24/16 20:45 07/25/16 02:45 07/25/16 05:51 Bedside Glucose 79 252 H 158 White Blood Count 7.0 Red Blood Count 3.17 L Hemoglobin 9.2 L Hematocrit 29.8 L Mean Corpuscular Volume 94.0 Mean Corpuscular Hemoglobin 29.0 Mean Corpuscular Hemoglobin Concent 30.9 L Red Cell Distribution Width 14.8 H Platelet Count 199 Mean Platelet Volume 10.1 Neutrophils % 81.3 H Lymphocytes % 11.3 L Monocytes % 6.7 Eosinophils % 0.0 Basophils % 0.3 Nucleated Red Blood Cells % 0.0 Neutrophils # 5.7 Lymphocytes # 0.8 Monocytes # 0.5 Eosinophils # 0.0 Basophils # 0.0 Nucleated Red Blood Cells # 0.0 Sodium Level 138 Potassium Level 3.9 Chloride Level 94 L Carbon Dioxide Level 36 H Anion Gap 12 Blood Urea Nitrogen 44 H Creatinine 1.08 H Glucose Level 173 Calcium Level 9.0 Phosphorus Level 4.5 Magnesium Level 1.7 Test 07/25/16 08:03 07/25/16 11:58 Bedside Glucose 173 102 Medications Medications Current Medications Lorazepam (Ativan) 0.5 mg Q6H PRN IV ANXIETY Last administered on 07/23/16 01: 24; Admin Dose 0.5 MG; Start 07/20/16 at 17:00 Eye Lubricant (Artificial Tears Oph) 1 drop DAILY PRN BOTH EYES DRY EYES; Start 07/20/16 at 17:00 Ascorbic Acid (Vitamin C) 500 mg DAILY PO Last administered on 07/25/16 08:49 ; Admin Dose 500 MG; Start 07/21/16 at 09:00 Atorvastatin Calcium (Lipitor) 40 mg HS PO Last administered on 07/24/16 20:48 ; Admin Dose 40 MG; Start 07/20/16 at 21:00 Docusate Sodium (Colace) 200 mg QHS PRN PO CONSTIPATION; Start 07/20/16 at 17: 00 Gabapentin (Neurontin) 400 mg BID PO Last administered on 07/25/16 08:49; Admin Dose 400 MG; Start 07/20/16 at 21:00 Levetiracetam (Keppra) 375 mg BID PO Last administered on 07/25/16 08:49; Admin Dose 375 MG; Start 07/20/16 at 21:00 Losartan Potassium (Cozaar) 25 mg BID PO Last administered on 07/25/16 08:51; Admin Dose 25 MG; Start 07/20/16 at 21:00 Metoprolol Tartrate (Lopressor) 50 mg BID PO Last administered on 07/25/16 08: 52; Admin Dose 50 MG; Start 07/20/16 at 21:00 Pantoprazole (Protonix Tab) 40 mg BID PO Last administered on 07/25/16 08:49; Admin Dose 40 MG; Start 07/20/16 at 21:00 Salmeterol Xinafoate/ Fluticasone (Advair 250/50 Diskus) 1 inh BID INH Last administered on 07/25/16 08:49; Admin Dose 1 INH; Start 07/20/16 at 21:00 Zinc Sulfate (Zinc Sulfate) 220 mg DAILY PO Last administered on 07/25/16 08: 51; Admin Dose 220 MG; Start 07/21/16 at 09:00 Diphenhydramine HCl (Benadryl) 25 mg Q12H IV Last administered on 07/25/16 08: 49; Admin Dose 25 MG; Start 07/20/16 at 21:00 Miscellaneous Information 1 ea NOTE XX ; Start 07/20/16 at 17:00 Glucose (Glutose) 15 gm Q15M PRN PO DECREASED GLUCOSE; Start 07/20/16 at 17:00 Glucose (Glutose) 22.5 gm Q15M PRN PO DECREASED GLUCOSE; Start 07/20/16 at 17: 00 Dextrose (D50w Syringe) 25 ml Q15M PRN IV DECREASED GLUCOSE; Start 07/20/16 at 17:00 Dextrose (D50w Syringe) 50 ml Q15M PRN IV DECREASED GLUCOSE; Start 07/20/16 at 17:00 Glucagon (Glucagen) 1 mg Q15M PRN IM DECREASED GLUCOSE; Start 07/20/16 at 17:00 Glucose (Glutose) 15 gm Q15M PRN BUCCAL DECREASED GLUCOSE; Start 07/20/16 at 17 :00 Hydralazine HCl (Apresoline) 10 mg Q6H PRN IV SBP>160; Start 07/20/16 at 17:30 Ondansetron HCl (Zofran Inj) 4 mg Q4H PRN IV NAUSEA AND/OR VOMITING Last administered on 07/20/16 18:57; Admin Dose 4 MG; Start 07/20/16 at 19:00 Cholecalciferol (Vitamin D) 1,000 unit DAILY PO Last administered on 07/25/16 08:51; Admin Dose 1,000 UNIT; Start 07/21/16 at 09:00 Insulin Glargine (Lantus) 40 unit DAILY@20 SC Last administered on 07/24/16 21 :02; Admin Dose 40 UNIT; Start 07/21/16 at 20:31 Insulin Human NPH (Humulin N) 12 unit BID@08,20 SC Last administered on 08:55; Admin Dose 12 UNIT; Start 07/21/16 at 20:33 Morphine Sulfate (morphine) 4 mg Q4H PRN IV Pain Last administered on 21:57; Admin Dose 4 MG; Start 07/22/16 at 14:30 Methylprednisolone Sodium Succinate (Solu-Medrol) 20 mg BID@08,20 IV Last administered on 07/25/16 08:49; Admin Dose 20 MG; Start 07/22/16 at 20:00 Diagnostic Test (Pha) (Accu-Chek) 1 ea 02 XX Last administered on 07/24/16 02: 28; Admin Dose 1 EA; Start 07/23/16 at 02:00 Apixaban (Eliquis) 5 mg BID PO Last administered on 07/25/16 08:51; Admin Dose 5 MG; Start 07/23/16 at 09:30 Spironolactone (Aldactone) 25 mg DAILY PO Last administered on 07/25/16 08:49 ; Admin Dose 25 MG; Start 07/23/16 at 09:30 Hydrocortisone (Hydrocortisone 1% Oint) 1 applic BID TOP Last administered on 08:56; Admin Dose 1 APPLIC; Start 07/23/16 at 13:00 Phenyleph/Shark Oil/Min Oil/ Petrol 1 applic 1 applic DAILY AL Last administered on 07/25/16 08:58; Admin Dose 1 APPLIC; Start 07/23/16 at 14:00 Vancomycin HCl/ Sodium Chloride (Vancocin/NS) 250 ml @ 83.333 mls/ hr Q24H IVPB Last administered on 4/21/17at 16:42; Admin Dose 83.333 MLS/HR; Start at 16:00 Hydroxyzine HCl 50 mg 50 mg TID PO Last administered on 07/25/16t 13:06; Admin Dose 50 MG; Start 07/24/16 at 13:00 Ceftriaxone Sodium (Rocephin) 50 ml @ 100 mls/hr Q24H IVPB Last administered on 07/24/16 16:41; Admin Dose 100 MLS/HR; Start 07/24/16 at 16:30 Terbinafine HCl (Lamisil) 250 mg BID PO ; Start 07/25/16 at 13:30; Stop at 13:29 FERNANDA AVINA NP Jul 25, 2016 13:50
--- NOTE | 2016-07-25 16:02 | CONS ---
Date/Time of Note Date/Time of Note DATE: 07/25/16 TIME: 16:00 Consult Date/Type/Reason Admit Date/Time Jul 20, 2016 at 14:10 Initial Consult Date 07/21/16 Type of Consultation: Pulm Subjective No events. Objective Vital Signs Date Time Temp Pulse Resp B/P Pulse Ox O2 Delivery O2 Flow Rate FiO2 07/25/16 15:38 98.5 73 20 165/66 94 07/25/16 13:19 Nasal Cannula 2.0 07/22/16 09:58 21 Intake and Output 07/24/16 07/24/16 07/25/16 15:00 23:00 07:00 Intake Total 880 ml 780 ml Output Total 2550 ml 2100 ml Balance -1670 ml -1320 ml Exam CARDIAC EXAM: Irreg irreg S1, S2. No added sounds or murmurs. CHEST: Bibasilar rales ABDOMEN: Soft, nontender. No guarding or rebound. EXTREMITIES: No cyanosis, clubbing or edema. Results/Medications Result Diagram: 07/25/16 0551 07/25/16 0551 Results 24 hrs Laboratory Tests Test 07/24/16 17:24 07/24/16 20:45 07/25/16 02:45 07/25/16 05:51 Bedside Glucose 79 252 H 158 White Blood Count 7.0 Red Blood Count 3.17 L Hemoglobin 9.2 L Hematocrit 29.8 L Mean Corpuscular Volume 94.0 Mean Corpuscular Hemoglobin 29.0 Mean Corpuscular Hemoglobin Concent 30.9 L Red Cell Distribution Width 14.8 H Platelet Count 199 Mean Platelet Volume 10.1 Neutrophils % 81.3 H Lymphocytes % 11.3 L Monocytes % 6.7 Eosinophils % 0.0 Basophils % 0.3 Nucleated Red Blood Cells % 0.0 Neutrophils # 5.7 Lymphocytes # 0.8 Monocytes # 0.5 Eosinophils # 0.0 Basophils # 0.0 Nucleated Red Blood Cells # 0.0 Sodium Level 138 Potassium Level 3.9 Chloride Level 94 L Carbon Dioxide Level 36 H Anion Gap 12 Blood Urea Nitrogen 44 H Creatinine 1.08 H Glucose Level 173 Calcium Level 9.0 Phosphorus Level 4.5 Magnesium Level 1.7 Test 07/25/16 08:03 07/25/16 11:58 Bedside Glucose 173 102 Medications Current Medications Lorazepam (Ativan) 0.5 mg Q6H PRN IV ANXIETY Last administered on 07/23/16 01: 24; Admin Dose 0.5 MG; Start 07/20/16 at 17:00 Eye Lubricant (Artificial Tears Oph) 1 drop DAILY PRN BOTH EYES DRY EYES; Start 07/20/16 at 17:00 Ascorbic Acid (Vitamin C) 500 mg DAILY PO Last administered on 07/25/16 08:49 ; Admin Dose 500 MG; Start 07/21/16 at 09:00 Atorvastatin Calcium (Lipitor) 40 mg HS PO Last administered on 07/24/16 20:48 ; Admin Dose 40 MG; Start 07/20/16 at 21:00 Docusate Sodium (Colace) 200 mg QHS PRN PO CONSTIPATION; Start 07/20/16 at 17: 00 Gabapentin (Neurontin) 400 mg BID PO Last administered on 07/25/16 08:49; Admin Dose 400 MG; Start 07/20/16 at 21:00 Levetiracetam (Keppra) 375 mg BID PO Last administered on 07/25/16 08:49; Admin Dose 375 MG; Start 07/20/16 at 21:00 Losartan Potassium (Cozaar) 25 mg BID PO Last administered on 07/25/16 08:51; Admin Dose 25 MG; Start 07/20/16 at 21:00 Metoprolol Tartrate (Lopressor) 50 mg BID PO Last administered on 07/25/16 08: 52; Admin Dose 50 MG; Start 07/20/16 at 21:00 Pantoprazole (Protonix Tab) 40 mg BID PO Last administered on 07/25/16 08:49; Admin Dose 40 MG; Start 07/20/16 at 21:00 Salmeterol Xinafoate/ Fluticasone (Advair 250/50 Diskus) 1 inh BID INH Last administered on 07/25/16 08:49; Admin Dose 1 INH; Start 07/20/16 at 21:00 Zinc Sulfate (Zinc Sulfate) 220 mg DAILY PO Last administered on 07/25/16 08: 51; Admin Dose 220 MG; Start 07/21/16 at 09:00 Diphenhydramine HCl (Benadryl) 25 mg Q12H IV Last administered on 07/25/16 08: 49; Admin Dose 25 MG; Start 07/20/16 at 21:00 Miscellaneous Information 1 ea NOTE XX ; Start 07/20/16 at 17:00 Glucose (Glutose) 15 gm Q15M PRN PO DECREASED GLUCOSE; Start 07/20/16 at 17:00 Glucose (Glutose) 22.5 gm Q15M PRN PO DECREASED GLUCOSE; Start 07/20/16 at 17: 00 Dextrose (D50w Syringe) 25 ml Q15M PRN IV DECREASED GLUCOSE; Start 07/20/16 at 17:00 Dextrose (D50w Syringe) 50 ml Q15M PRN IV DECREASED GLUCOSE; Start 07/20/16 at 17:00 Glucagon (Glucagen) 1 mg Q15M PRN IM DECREASED GLUCOSE; Start 07/20/16 at 17:00 Glucose (Glutose) 15 gm Q15M PRN BUCCAL DECREASED GLUCOSE; Start 07/20/16 at 17 :00 Hydralazine HCl (Apresoline) 10 mg Q6H PRN IV SBP>160; Start 07/20/16 at 17:30 Ondansetron HCl (Zofran Inj) 4 mg Q4H PRN IV NAUSEA AND/OR VOMITING Last administered on 07/20/16 18:57; Admin Dose 4 MG; Start 07/20/16 at 19:00 Cholecalciferol (Vitamin D) 1,000 unit DAILY PO Last administered on 07/25/16 08:51; Admin Dose 1,000 UNIT; Start 07/21/16 at 09:00 Insulin Glargine (Lantus) 40 unit DAILY@20 SC Last administered on 07/24/16 21 :02; Admin Dose 40 UNIT; Start 07/21/16 at 20:31 Insulin Human NPH (Humulin N) 12 unit BID@08,20 SC Last administered on 08:55; Admin Dose 12 UNIT; Start 07/21/16 at 20:33 Morphine Sulfate (morphine) 4 mg Q4H PRN IV Pain Last administered on 21:57; Admin Dose 4 MG; Start 07/22/16 at 14:30 Methylprednisolone Sodium Succinate (Solu-Medrol) 20 mg BID@08,20 IV Last administered on 07/25/16 08:49; Admin Dose 20 MG; Start 07/22/16 at 20:00 Diagnostic Test (Pha) (Accu-Chek) 1 ea 02 XX Last administered on 07/24/16 02: 28; Admin Dose 1 EA; Start 07/23/16 at 02:00 Apixaban (Eliquis) 5 mg BID PO Last administered on 07/25/16 08:51; Admin Dose 5 MG; Start 07/23/16 at 09:30 Spironolactone (Aldactone) 25 mg DAILY PO Last administered on 07/25/16 08:49 ; Admin Dose 25 MG; Start 07/23/16 at 09:30 Hydrocortisone (Hydrocortisone 1% Oint) 1 applic BID TOP Last administered on 08:56; Admin Dose 1 APPLIC; Start 07/23/16 at 13:00 Phenyleph/Shark Oil/Min Oil/ Petrol 1 applic 1 applic DAILY AR Last administered on 07/25/16 08:58; Admin Dose 1 APPLIC; Start 07/23/16 at 14:00 Vancomycin HCl/ Sodium Chloride (Vancocin/NS) 250 ml @ 83.333 mls/ hr Q24H IVPB Last administered on 07/24/16 16:42; Admin Dose 83.333 MLS/HR; Start at 16:00 Hydroxyzine HCl 50 mg 50 mg TID PO Last administered on 07/25/16 13:06; Admin Dose 50 MG; Start 07/24/16 at 13:00 Ceftriaxone Sodium (Rocephin) 50 ml @ 100 mls/hr Q24H IVPB Last administered on 07/24/16 16:41; Admin Dose 100 MLS/HR; Start 07/24/16 at 16:30 Terbinafine HCl (Lamisil) 250 mg BID PO ; Start 07/25/16 at 13:30; Stop at 13:29 Assessment/Plan Additional Assessment/Plan IMP 1. Acute hypoxemic respiratory failure 2. Congestive cardiac failure w 3. Afib 4. Probable underlying obstructive sleep apnea RECS: 1. Continue supplemental O2 as needed 2. Continue diuresis and cardiac recommendations 3 PT/OT; OOB 4. Aspiration precautions FARZANA RUDOLPH MD Jul 25, 2016 16:02
[2016-07-25] MEDS: CEFTRIAXONE 1 GM/50 ML (PMX) 50 ML IVPB SCH (16:20)
[2016-07-25] MEDS: TERBINAFINE 250 MG TAB PO SCH ×2 (16:20→21:48)
[2016-07-25] MEDS: VANCOMYCIN 1.25 GM in SOD CHLORIDE 0.9% 250 ML IVPB SCH (16:20)
[2016-07-25] MEDS: ATORVASTATIN 40 MG TAB PO SCH (21:47)
[2016-07-25] MEDS: INSULIN GLARGINE [LANtus] 3 ML PEN SC SCH (21:57)
[2016-07-26] VITALS (12 sets, daily range): BP systolic 113–143; BP diastolic 55–80; PULSE 68–93; RESP 18–19
[2016-07-26] MEDS: ACCU-CHEK XX SCH (02:00)
[2016-07-26 06:36] LABS: ADD SCAN DIFF NO
[2016-07-26] MEDS: FUROSEMIDE 40 MG TAB PO SCH ×2 (06:51→17:42)
[2016-07-26 06:54] LABS: CREATININE 1.02 mg/dl (0.44-1.00); POTASSIUM 4.1 mmol/L (3.5-5.1)
[2016-07-26] MEDS: PANTOPRAZOLE (EC) 40 MG TAB PO SCH ×2 (08:30→20:29)
[2016-07-26] MEDS: APIXABAN 5 MG TABLET PO SCH ×2 (08:30→20:30)
[2016-07-26] MEDS: GABAPENTIN 400 MG CAP PO SCH ×2 (08:30→20:29)
[2016-07-26] MEDS: SPIRONOLACTONE 25 MG TAB PO SCH (08:31)
[2016-07-26] MEDS: CHOLECALCIFEROL 1,000 UNIT TAB PO SCH (08:31)
[2016-07-26] MEDS: TERBINAFINE 250 MG TAB PO SCH ×2 (08:31→20:29)
[2016-07-26] MEDS: ASCORBIC ACID 500 MG TAB PO SCH (08:31)
[2016-07-26] MEDS: LEVETIRACETAM 500 MG TAB PO SCH ×2 (08:31→20:30)
[2016-07-26] MEDS: hydrOXYzine HCL 25 MG TAB PO SCH ×3 (08:31→20:29)
[2016-07-26] MEDS: METOPROLOL 50 MG TAB PO SCH ×2 (08:31→20:30)
[2016-07-26] MEDS: LOSARTAN 25 MG TAB PO SCH ×2 (08:31→20:29)
[2016-07-26] MEDS: ZINC SULFATE 220 MG CAP PO SCH (08:31)
[2016-07-26] MEDS: METHYLPREDNISOLONE 40 MG INJ IV SCH ×2 (08:32→20:28)
[2016-07-26] MEDS: SALMETEROL/FLUTICASONE 250/50 INHA INH SCH ×2 (08:32→20:28)
[2016-07-26] MEDS: DIPHENHYDRAMINE 50 MG INJ IV SCH ×2 (08:32→20:29)
[2016-07-26] MEDS: NPH, HUMAN INSULIN ISOPHANE 3ML VIAL SC SCH ×2 (08:37→20:32)
[2016-07-26] MEDS: PE/SHARK OIL/MO/PETROL 30 GM OINT PR SCH (08:47)
[2016-07-26] MEDS: HYDROCORTISONE 1% 28.35 GM OINT TOP SCH ×2 (08:50→20:37)
[2016-07-26] MEDS: INSULIN ASPART [NOVOLOG] 3 ML PEN SC SCH ×8 (09:01→20:38)
[2016-07-26 09:46] LABS: BASOPHILS % 0.1 % (0.0-2.0); HEMATOCRIT 33.2 % (37.0-47.0); HEMOGLOBIN 10.2 g/dl (12.0-16.0); LYMPHOCYTES # 0.8 10^3/ul (0.8-2.9); LYMPHOCYTES % 9.4 % (15.0-51.0); MEAN CORPUSCULAR HEMOGLOBIN 28.8 pg (29.0-33.0); MEAN CORPUSCULAR HGB CONC 30.7 g/dl (32.0-37.0); MEAN CORPUSCULAR VOLUME 93.8 fl (82.0-101.0); MEAN PLATELET VOLUME 10.8 fl (7.4-10.4); MONOCYTE # 0.5 10^3/ul (0.3-0.9); MONOCYTES % 5.6 % (0.0-11.0); NEUTROPHIL # 7.1 10^3/ul (1.6-7.5); NEUTROPHILS % 84.3 % (39.0-77.0); PLATELET COUNT 231 10^3/UL (140-415); RED BLOOD COUNT 3.54 10^6/ul (4.20-5.40); RED CELL DISTRIBUTION WIDTH 15.2 % (11.5-14.5); WHITE BLOOD COUNT 8.4 10^3/ul (4.8-10.8)
[2016-07-26] MEDS: ALBUTEROL/IPRATROPIUM (NEB) 3 ML AMP HHN SCH ×4 (10:44→21:01)
--- NOTE | 2016-07-26 12:27 | PN ---
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 Continue care (2) Obstructive sleep apnea Status: Chronic Comment: Using nocturnal BiPAP CPAP and actually a bit brighter today (3) Chronic atrial fibrillation Status: Chronic Comment: Rate is controlled on medications (4) Acute exacerbation of CHF (congestive heart failure) Status: Acute Comment: Improved with diuresis possible discharge in morning Qualifiers: Congestive heart failure type: unspecified congestive heart failure type Qualified Code: I50.9 - Acute on chronic congestive heart failure, unspecified congestive heart failure type Subjective 24 Hr Interval Summary Free Text/Dictation Patient is much more vibrant and alert today and reports she is feeling better Constitutional: no complaints Respiratory: no complaints Cardiovascular: no complaints Gastrointestinal: no complaints Genitourinary: no complaints Exam/Review of Systems Vital Signs Vitals Vital Signs Date Time Temp Pulse Resp B/P Pulse Ox O2 Delivery O2 Flow Rate FiO2 07/26/16 12:10 93 07/26/16 11:27 98.0 19 120/57 95 07/26/16 10:45 Nasal Cannula 1.0 07/22/16 09:58 21 Intake and Output 07/25/16 07/25/16 07/26/16 15:00 23:00 07:00 Intake Total 950 ml 300 ml Output Total 2000 ml 2000 ml Balance -1050 ml -1700 ml Exam Constitutional: alert, oriented Respiratory: clear to auscultation, normal air movement Cardiovascular: nl pulses, regular rate and rhythm Gastrointestinal: nl liver, spleen, non-tender, soft Results Result Diagram: 07/26/16 0545 07/26/16 0545 Results 24 hrs Laboratory Tests Test 07/25/16 17:38 07/25/16 21:46 07/26/16 05:45 07/26/16 08:04 Bedside Glucose 130 178 187 White Blood Count 8.4 Red Blood Count 3.54 L Hemoglobin 10.2 L Hematocrit 33.2 L Mean Corpuscular Volume 93.8 Mean Corpuscular Hemoglobin 28.8 L Mean Corpuscular Hemoglobin Concent 30.7 L Red Cell Distribution Width 15.2 H Platelet Count 231 Mean Platelet Volume 10.8 H Neutrophils % 84.3 H Lymphocytes % 9.4 L Monocytes % 5.6 Eosinophils % 0.0 Basophils % 0.1 Nucleated Red Blood Cells % 0.0 Neutrophils # 7.1 Lymphocytes # 0.8 Monocytes # 0.5 Eosinophils # 0.0 Basophils # 0.0 Nucleated Red Blood Cells # 0.0 Sodium Level 137 Potassium Level 4.1 Chloride Level 97 Carbon Dioxide Level 36 H Anion Gap 8 Blood Urea Nitrogen 47 H Creatinine 1.02 H Glucose Level 166 Calcium Level 9.0 Test 07/26/16 11:43 Bedside Glucose 144 Medications Medications Current Medications Lorazepam (Ativan) 0.5 mg Q6H PRN IV ANXIETY Last administered on 07/23/16 01: 24; Admin Dose 0.5 MG; Start 07/20/16 at 17:00 Eye Lubricant (Artificial Tears Oph) 1 drop DAILY PRN BOTH EYES DRY EYES; Start 07/20/16 at 17:00 Ascorbic Acid (Vitamin C) 500 mg DAILY PO Last administered on 07/26/16 08:31 ; Admin Dose 500 MG; Start 07/21/16 at 09:00 Atorvastatin Calcium (Lipitor) 40 mg HS PO Last administered on 07/25/16 21:47 ; Admin Dose 40 MG; Start 07/20/16 at 21:00 Docusate Sodium (Colace) 200 mg QHS PRN PO CONSTIPATION; Start 07/20/16 at 17: 00 Gabapentin (Neurontin) 400 mg BID PO Last administered on 07/26/16 08:30; Admin Dose 400 MG; Start 07/20/16 at 21:00 Levetiracetam (Keppra) 375 mg BID PO Last administered on 07/26/16 08:31; Admin Dose 375 MG; Start 07/20/16 at 21:00 Losartan Potassium (Cozaar) 25 mg BID PO Last administered on 07/26/16 08:31; Admin Dose 25 MG; Start 07/20/16 at 21:00 Metoprolol Tartrate (Lopressor) 50 mg BID PO Last administered on 07/26/16 08: 31; Admin Dose 50 MG; Start 07/20/16 at 21:00 Pantoprazole (Protonix Tab) 40 mg BID PO Last administered on 07/26/16 08:30; Admin Dose 40 MG; Start 07/20/16 at 21:00 Salmeterol Xinafoate/ Fluticasone (Advair 250/50 Diskus) 1 inh BID INH Last administered on 07/26/16 08:32; Admin Dose 1 INH; Start 07/20/16 at 21:00 Zinc Sulfate (Zinc Sulfate) 220 mg DAILY PO Last administered on 07/26/16 08: 31; Admin Dose 220 MG; Start 07/21/16 at 09:00 Diphenhydramine HCl (Benadryl) 25 mg Q12H IV Last administered on 07/26/16 08: 32; Admin Dose 25 MG; Start 07/20/16 at 21:00 Miscellaneous Information 1 ea NOTE XX ; Start 07/20/16 at 17:00 Glucose (Glutose) 15 gm Q15M PRN PO DECREASED GLUCOSE; Start 07/20/16 at 17:00 Glucose (Glutose) 22.5 gm Q15M PRN PO DECREASED GLUCOSE; Start 07/20/16 at 17: 00 Dextrose (D50w Syringe) 25 ml Q15M PRN IV DECREASED GLUCOSE; Start 07/20/16 at 17:00 Dextrose (D50w Syringe) 50 ml Q15M PRN IV DECREASED GLUCOSE; Start 07/20/16 at 17:00 Glucagon (Glucagen) 1 mg Q15M PRN IM DECREASED GLUCOSE; Start 07/20/16 at 17:00 Glucose (Glutose) 15 gm Q15M PRN BUCCAL DECREASED GLUCOSE; Start 07/20/16 at 17 :00 Hydralazine HCl (Apresoline) 10 mg Q6H PRN IV SBP>160; Start 07/20/16 at 17:30 Ondansetron HCl (Zofran Inj) 4 mg Q4H PRN IV NAUSEA AND/OR VOMITING Last administered on 07/20/16 18:57; Admin Dose 4 MG; Start 07/20/16 at 19:00 Cholecalciferol (Vitamin D) 1,000 unit DAILY PO Last administered on 07/26/16 08:31; Admin Dose 1,000 UNIT; Start 07/21/16 at 09:00 Insulin Glargine (Lantus) 40 unit DAILY@20 SC Last administered on 07/25/16 21 :57; Admin Dose 40 UNIT; Start 07/21/16 at 20:31 Insulin Human NPH (Humulin N) 12 unit BID@08,20 SC Last administered on 08:37; Admin Dose 12 UNIT; Start 07/21/16 at 20:33 Morphine Sulfate (morphine) 4 mg Q4H PRN IV Pain Last administered on 21:57; Admin Dose 4 MG; Start 07/22/16 at 14:30 Methylprednisolone Sodium Succinate (Solu-Medrol) 20 mg BID@08,20 IV Last administered on 07/26/16 08:32; Admin Dose 20 MG; Start 07/22/16 at 20:00 Diagnostic Test (Pha) (Accu-Chek) 1 ea 02 XX Last administered on 07/26/16 02: 00; Admin Dose 1 EA; Start 07/23/16 at 02:00 Apixaban (Eliquis) 5 mg BID PO Last administered on 07/26/16 08:30; Admin Dose 5 MG; Start 07/23/16 at 09:30 Spironolactone (Aldactone) 25 mg DAILY PO Last administered on 07/26/16 08:31 ; Admin Dose 25 MG; Start 07/23/16 at 09:30 Hydrocortisone (Hydrocortisone 1% Oint) 1 applic BID TOP Last administered on 08:50; Admin Dose 1 APPLIC; Start 07/23/16 at 13:00 Phenyleph/Shark Oil/Min Oil/ Petrol 1 applic 1 applic DAILY ID Last administered on 07/26/16 08:47; Admin Dose 1 APPLIC; Start 07/23/16 at 14:00 Vancomycin HCl/ Sodium Chloride (Vancocin/NS) 250 ml @ 83.333 mls/ hr Q24H IVPB Last administered on 07/25/16 16:20; Admin Dose 83.333 MLS/HR; Start at 16:00 Hydroxyzine HCl 50 mg 50 mg TID PO Last administered on 07/26/16 12:21; Admin Dose 50 MG; Start 07/24/16 at 13:00 Ceftriaxone Sodium (Rocephin) 50 ml @ 100 mls/hr Q24H IVPB Last administered on 07/25/16 16:20; Admin Dose 100 MLS/HR; Start 07/24/16 at 16:30 Terbinafine HCl (Lamisil) 250 mg BID PO Last administered on 07/26/16t 08:31; Admin Dose 250 MG; Start 07/25/16 at 13:30; Stop 08/01/16 at 13:29 Miscellaneous Information (*Rx Drug Level Order Reminder*) VANCOMYCIN TROUGH AT 1500 ONCE ONCE XX ; Start 07/26/16 at 15:00; Stop 07/26/16 at 15:01 MARGARET NAVARRO MD Jul 26, 2016 12:27
[2016-07-26] MEDS: CEFTRIAXONE 1 GM/50 ML (PMX) 50 ML IVPB SCH (16:34)
[2016-07-26] MEDS: VANCOMYCIN 1.25 GM in SOD CHLORIDE 0.9% 250 ML IVPB SCH (16:37)
--- NOTE | 2016-07-26 16:39 | CONS ---
Date/Time of Note Date/Time of Note DATE: 07/26/16 TIME: 16:37 Consult Date/Type/Reason Admit Date/Time Jul 20, 2016 at 14:10 Initial Consult Date 07/21/16 Type of Consultation: Pulm Subjective No events. No c/o Objective Vital Signs Date Time Temp Pulse Resp B/P Pulse Ox O2 Delivery O2 Flow Rate FiO2 07/26/16 16:16 68 07/26/16 15:14 98.0 19 132/79 98 07/26/16 10:45 Nasal Cannula 1.0 07/22/16 09:58 21 Intake and Output 07/25/16 07/25/16 07/26/16 15:00 23:00 07:00 Intake Total 950 ml 300 ml Output Total 2000 ml 2000 ml Balance -1050 ml -1700 ml Exam CARDIAC EXAM: Irreg irreg S1, S2. No added sounds or murmurs. CHEST: Bibasilar rales ABDOMEN: Soft, nontender. No guarding or rebound. EXTREMITIES: No cyanosis, clubbing or edema. Results/Medications Result Diagram: 07/26/16 0545 07/26/16 0545 Results 24 hrs Laboratory Tests Test 07/25/16 17:38 07/25/16 21:46 07/26/16 05:45 07/26/16 08:04 Bedside Glucose 130 178 187 White Blood Count 8.4 Red Blood Count 3.54 L Hemoglobin 10.2 L Hematocrit 33.2 L Mean Corpuscular Volume 93.8 Mean Corpuscular Hemoglobin 28.8 L Mean Corpuscular Hemoglobin Concent 30.7 L Red Cell Distribution Width 15.2 H Platelet Count 231 Mean Platelet Volume 10.8 H Neutrophils % 84.3 H Lymphocytes % 9.4 L Monocytes % 5.6 Eosinophils % 0.0 Basophils % 0.1 Nucleated Red Blood Cells % 0.0 Neutrophils # 7.1 Lymphocytes # 0.8 Monocytes # 0.5 Eosinophils # 0.0 Basophils # 0.0 Nucleated Red Blood Cells # 0.0 Sodium Level 137 Potassium Level 4.1 Chloride Level 97 Carbon Dioxide Level 36 H Anion Gap 8 Blood Urea Nitrogen 47 H Creatinine 1.02 H Glucose Level 166 Calcium Level 9.0 Test 07/26/16 11:43 07/26/16 15:00 Bedside Glucose 144 Vancomycin Level Trough 14.0 Medications Current Medications Lorazepam (Ativan) 0.5 mg Q6H PRN IV ANXIETY Last administered on 07/23/16 01: 24; Admin Dose 0.5 MG; Start 07/20/16 at 17:00 Eye Lubricant (Artificial Tears Oph) 1 drop DAILY PRN BOTH EYES DRY EYES; Start 07/20/16 at 17:00 Ascorbic Acid (Vitamin C) 500 mg DAILY PO Last administered on 07/26/16 08:31 ; Admin Dose 500 MG; Start 07/21/16 at 09:00 Atorvastatin Calcium (Lipitor) 40 mg HS PO Last administered on 07/25/16 21:47 ; Admin Dose 40 MG; Start 07/20/16 at 21:00 Docusate Sodium (Colace) 200 mg QHS PRN PO CONSTIPATION; Start 07/20/16 at 17: 00 Gabapentin (Neurontin) 400 mg BID PO Last administered on 07/26/16 08:30; Admin Dose 400 MG; Start 07/20/16 at 21:00 Levetiracetam (Keppra) 375 mg BID PO Last administered on 07/26/16 08:31; Admin Dose 375 MG; Start 07/20/16 at 21:00 Losartan Potassium (Cozaar) 25 mg BID PO Last administered on 07/26/16 08:31; Admin Dose 25 MG; Start 07/20/16 at 21:00 Metoprolol Tartrate (Lopressor) 50 mg BID PO Last administered on 07/26/16 08: 31; Admin Dose 50 MG; Start 07/20/16 at 21:00 Pantoprazole (Protonix Tab) 40 mg BID PO Last administered on 07/26/16 08:30; Admin Dose 40 MG; Start 07/20/16 at 21:00 Salmeterol Xinafoate/ Fluticasone (Advair 250/50 Diskus) 1 inh BID INH Last administered on 07/26/16 08:32; Admin Dose 1 INH; Start 07/20/16 at 21:00 Zinc Sulfate (Zinc Sulfate) 220 mg DAILY PO Last administered on 07/26/16 08: 31; Admin Dose 220 MG; Start 07/21/16 at 09:00 Diphenhydramine HCl (Benadryl) 25 mg Q12H IV Last administered on 07/26/16 08: 32; Admin Dose 25 MG; Start 07/20/16 at 21:00 Miscellaneous Information 1 ea NOTE XX ; Start 07/20/16 at 17:00 Glucose (Glutose) 15 gm Q15M PRN PO DECREASED GLUCOSE; Start 07/20/16 at 17:00 Glucose (Glutose) 22.5 gm Q15M PRN PO DECREASED GLUCOSE; Start 07/20/16 at 17: 00 Dextrose (D50w Syringe) 25 ml Q15M PRN IV DECREASED GLUCOSE; Start 07/20/16 at 17:00 Dextrose (D50w Syringe) 50 ml Q15M PRN IV DECREASED GLUCOSE; Start 07/20/16 at 17:00 Glucagon (Glucagen) 1 mg Q15M PRN IM DECREASED GLUCOSE; Start 07/20/16 at 17:00 Glucose (Glutose) 15 gm Q15M PRN BUCCAL DECREASED GLUCOSE; Start 07/20/16 at 17 :00 Hydralazine HCl (Apresoline) 10 mg Q6H PRN IV SBP>160; Start 07/20/16 at 17:30 Ondansetron HCl (Zofran Inj) 4 mg Q4H PRN IV NAUSEA AND/OR VOMITING Last administered on 07/20/16 18:57; Admin Dose 4 MG; Start 07/20/16 at 19:00 Cholecalciferol (Vitamin D) 1,000 unit DAILY PO Last administered on 07/26/16 08:31; Admin Dose 1,000 UNIT; Start 07/21/16 at 09:00 Insulin Glargine (Lantus) 40 unit DAILY@20 SC Last administered on 07/25/16 21 :57; Admin Dose 40 UNIT; Start 07/21/16 at 20:31 Insulin Human NPH (Humulin N) 12 unit BID@08,20 SC Last administered on 08:37; Admin Dose 12 UNIT; Start 07/21/16 at 20:33 Morphine Sulfate (morphine) 4 mg Q4H PRN IV Pain Last administered on 21:57; Admin Dose 4 MG; Start 07/22/16 at 14:30 Methylprednisolone Sodium Succinate (Solu-Medrol) 20 mg BID@08,20 IV Last administered on 07/26/16 08:32; Admin Dose 20 MG; Start 07/22/16 at 20:00 Diagnostic Test (Pha) (Accu-Chek) 1 ea 02 XX Last administered on 07/26/16 02: 00; Admin Dose 1 EA; Start 07/23/16 at 02:00 Apixaban (Eliquis) 5 mg BID PO Last administered on 07/26/16 08:30; Admin Dose 5 MG; Start 07/23/16 at 09:30 Spironolactone (Aldactone) 25 mg DAILY PO Last administered on 07/26/16 08:31 ; Admin Dose 25 MG; Start 07/23/16 at 09:30 Hydrocortisone (Hydrocortisone 1% Oint) 1 applic BID TOP Last administered on 08:50; Admin Dose 1 APPLIC; Start 07/23/16 at 13:00 Phenyleph/Shark Oil/Min Oil/ Petrol 1 applic 1 applic DAILY NV Last administered on 07/26/16 08:47; Admin Dose 1 APPLIC; Start 07/23/16 at 14:00 Vancomycin HCl/ Sodium Chloride (Vancocin/NS) 250 ml @ 83.333 mls/ hr Q24H IVPB Last administered on 07/26/16 16:37; Admin Dose 83.333 MLS/HR; Start at 16:00 Hydroxyzine HCl 50 mg 50 mg TID PO Last administered on 07/26/16 12:21; Admin Dose 50 MG; Start 07/24/16 at 13:00 Ceftriaxone Sodium (Rocephin) 50 ml @ 100 mls/hr Q24H IVPB Last administered on 07/26/16 16:34; Admin Dose 100 MLS/HR; Start 07/24/16 at 16:30 Terbinafine HCl (Lamisil) 250 mg BID PO Last administered on 07/26/16 08:31; Admin Dose 250 MG; Start 07/25/16 at 13:30; Stop 08/01/16 at 13:29 Assessment/Plan Additional Assessment/Plan IMP: 1. s/p Acute hypoxemic respiratory failure 2. Congestive cardiac failure 3. Afib 4. Probable underlying obstructive sleep apnea RECS: 1. back off diuresis 2. follow renal function/I&O's 3 PT/OT; OOB 4. Aspiration precautions FARZANA RUDOLPH MD Jul 26, 2016 16:39
--- NOTE | 2016-07-26 20:27 | CONS ---
Date/Time of Note Date/Time of Note DATE: 07/26/16 TIME: 20:22 Assessment/Plan Assessment/Plan Chief Complaint/Hosp Course ID PROGRESS NOTE TOTAL ABX DAY #7 => Vanco IV + Ceftriaxone s/p Cipro 24H INTERVAL SUMMARY * Slow clinical improvement per notes, no fevers, VSS, NAD * 85 yo F lethargic, super morbid obese, NAD on supplemental O2 via NC = more alert earlier today per staff * 07/26/16 0545 07/26/16 0545 PHYSICAL EXAMINATION: GENERAL: VSS, NAD, obese F, O2 via NC, no fevers HEENT: Unremarkable, sun damaged skin NECK: Supple, trach-> midline CHEST: Equal chest rise bilaterally, without dyspnea on observation HEART: Pulse RRR ABDOMEN: Soft, benign EXTREMITIES: Warm, dependent edema BUEXT, bumpy thick sun damaged skin BUEXT, BLEXT chronic venous stasis changes, skin scratch excoriations w/LLEXT cellulitis SKIN: Warm, dry ID ASSESSMENT: 85 yo F admitted with: 1. Polymicrobial GNR urinary tract infection. * URINE CULTURE Final Organism 1 K.PNEUMONIAE SSP PNEUMONIAE COLONY COUNT >100,000 CFU/ml Organism 2 PROTEUS MIRABILIS COLONY COUNT >100,000 CFU/ml 2. Status post acute hypoxemic respiratory failure secondary to congestive heart failure exacerbation. 3. Pulmonary hypertension. 4. Left lower extremity cellulitis. 5. Diabetes. INVASIVES: * PIV ABX ALLERGIES: KNDA CURRENT ABX: DAY #7 => Vanco IV + Ceftriaxone s/p ID RECOMMENDATIONS: 1. Continue current ABX over the weekend and monitor clinical status 2. May DC home when cleared by primary provider on Clindamycin 300mg PO QID x 5 days to complete course for cellulitis * OK to DC Ceftriaxone Wednesday \. . Problems: Consultation Date/Type/Reason Admit Date/Time Jul 20, 2016 at 14:10 Initial Consult Date 07/21/16 Type of Consultation: ID Exam/Review of Systems Vital Signs Vitals Vital Signs Date Time Temp Pulse Resp B/P Pulse Ox O2 Delivery O2 Flow Rate FiO2 07/26/16 20:00 97.9 70 18 140/64 98 07/26/16 17:17 Nasal Cannula 3.0 07/22/16 09:58 21 Intake and Output 07/25/16 07/25/16 07/26/16 15:00 23:00 07:00 Intake Total 950 ml 300 ml Output Total 2000 ml 2000 ml Balance -1050 ml -1700 ml Results Result Diagram: 07/26/16 0545 07/26/16 0545 Results 24 hrs Laboratory Tests Test 07/25/16 21:46 07/26/16 05:45 07/26/16 08:04 07/26/16 11:43 Bedside Glucose 178 187 144 White Blood Count 8.4 Red Blood Count 3.54 L Hemoglobin 10.2 L Hematocrit 33.2 L Mean Corpuscular Volume 93.8 Mean Corpuscular Hemoglobin 28.8 L Mean Corpuscular Hemoglobin Concent 30.7 L Red Cell Distribution Width 15.2 H Platelet Count 231 Mean Platelet Volume 10.8 H Neutrophils % 84.3 H Lymphocytes % 9.4 L Monocytes % 5.6 Eosinophils % 0.0 Basophils % 0.1 Nucleated Red Blood Cells % 0.0 Neutrophils # 7.1 Lymphocytes # 0.8 Monocytes # 0.5 Eosinophils # 0.0 Basophils # 0.0 Nucleated Red Blood Cells # 0.0 Sodium Level 137 Potassium Level 4.1 Chloride Level 97 Carbon Dioxide Level 36 H Anion Gap 8 Blood Urea Nitrogen 47 H Creatinine 1.02 H Glucose Level 166 Calcium Level 9.0 Test 07/26/16 15:00 07/26/16 17:34 Vancomycin Level Trough 14.0 Bedside Glucose 255 H Medications Medications Current Medications Lorazepam (Ativan) 0.5 mg Q6H PRN IV ANXIETY Last administered on 07/23/16 01: 24; Admin Dose 0.5 MG; Start 07/20/16 at 17:00 Eye Lubricant (Artificial Tears Oph) 1 drop DAILY PRN BOTH EYES DRY EYES; Start 07/20/16 at 17:00 Ascorbic Acid (Vitamin C) 500 mg DAILY PO Last administered on 07/26/16 08:31 ; Admin Dose 500 MG; Start 07/21/16 at 09:00 Atorvastatin Calcium (Lipitor) 40 mg HS PO Last administered on 07/25/16 21:47 ; Admin Dose 40 MG; Start 07/20/16 at 21:00 Docusate Sodium (Colace) 200 mg QHS PRN PO CONSTIPATION; Start 07/20/16 at 17: 00 Gabapentin (Neurontin) 400 mg BID PO Last administered on 07/26/16 08:30; Admin Dose 400 MG; Start 07/20/16 at 21:00 Levetiracetam (Keppra) 375 mg BID PO Last administered on 07/26/16 08:31; Admin Dose 375 MG; Start 07/20/16 at 21:00 Losartan Potassium (Cozaar) 25 mg BID PO Last administered on 07/26/16 08:31; Admin Dose 25 MG; Start 07/20/16 at 21:00 Metoprolol Tartrate (Lopressor) 50 mg BID PO Last administered on 07/26/16 08: 31; Admin Dose 50 MG; Start 07/20/16 at 21:00 Pantoprazole (Protonix Tab) 40 mg BID PO Last administered on 07/26/16 08:30; Admin Dose 40 MG; Start 07/20/16 at 21:00 Salmeterol Xinafoate/ Fluticasone (Advair 250/50 Diskus) 1 inh BID INH Last administered on 07/26/16 08:32; Admin Dose 1 INH; Start 07/20/16 at 21:00 Zinc Sulfate (Zinc Sulfate) 220 mg DAILY PO Last administered on 07/26/16 08: 31; Admin Dose 220 MG; Start 07/21/16 at 09:00 Diphenhydramine HCl (Benadryl) 25 mg Q12H IV Last administered on 07/26/16 08: 32; Admin Dose 25 MG; Start 07/20/16 at 21:00 Miscellaneous Information 1 ea NOTE XX ; Start 07/20/16 at 17:00 Glucose (Glutose) 15 gm Q15M PRN PO DECREASED GLUCOSE; Start 07/20/16 at 17:00 Glucose (Glutose) 22.5 gm Q15M PRN PO DECREASED GLUCOSE; Start 07/20/16 at 17: 00 Dextrose (D50w Syringe) 25 ml Q15M PRN IV DECREASED GLUCOSE; Start 07/20/16 at 17:00 Dextrose (D50w Syringe) 50 ml Q15M PRN IV DECREASED GLUCOSE; Start 07/20/16 at 17:00 Glucagon (Glucagen) 1 mg Q15M PRN IM DECREASED GLUCOSE; Start 07/20/16 at 17:00 Glucose (Glutose) 15 gm Q15M PRN BUCCAL DECREASED GLUCOSE; Start 07/20/16 at 17 :00 Hydralazine HCl (Apresoline) 10 mg Q6H PRN IV SBP>160; Start 07/20/16 at 17:30 Ondansetron HCl (Zofran Inj) 4 mg Q4H PRN IV NAUSEA AND/OR VOMITING Last administered on 07/20/16 18:57; Admin Dose 4 MG; Start 07/20/16 at 19:00 Cholecalciferol (Vitamin D) 1,000 unit DAILY PO Last administered on 07/26/16 08:31; Admin Dose 1,000 UNIT; Start 07/21/16 at 09:00 Insulin Glargine (Lantus) 40 unit DAILY@20 SC Last administered on 07/25/16 21 :57; Admin Dose 40 UNIT; Start 07/21/16 at 20:31 Insulin Human NPH (Humulin N) 12 unit BID@08,20 SC Last administered on 08:37; Admin Dose 12 UNIT; Start 07/21/16 at 20:33 Morphine Sulfate (morphine) 4 mg Q4H PRN IV Pain Last administered on 21:57; Admin Dose 4 MG; Start 07/22/16 at 14:30 Methylprednisolone Sodium Succinate (Solu-Medrol) 20 mg BID@08,20 IV Last administered on 07/26/16 08:32; Admin Dose 20 MG; Start 07/22/16 at 20:00 Diagnostic Test (Pha) (Accu-Chek) 1 ea 02 XX Last administered on 07/26/16 02: 00; Admin Dose 1 EA; Start 07/23/16 at 02:00 Apixaban (Eliquis) 5 mg BID PO Last administered on 07/26/16 08:30; Admin Dose 5 MG; Start 07/23/16 at 09:30 Spironolactone (Aldactone) 25 mg DAILY PO Last administered on 07/26/16 08:31 ; Admin Dose 25 MG; Start 07/23/16 at 09:30 Hydrocortisone (Hydrocortisone 1% Oint) 1 applic BID TOP Last administered on 08:50; Admin Dose 1 APPLIC; Start 07/23/16 at 13:00 Phenyleph/Shark Oil/Min Oil/ Petrol 1 applic 1 applic DAILY [place] Last administered on 07/26/16 08:47; Admin Dose 1 APPLIC; Start 07/23/16 at 14:00 Vancomycin HCl/ Sodium Chloride (Vancocin/NS) 250 ml @ 83.333 mls/ hr Q24H IVPB Last administered on 07/26/16 16:37; Admin Dose 83.333 MLS/HR; Start at 16:00 Hydroxyzine HCl 50 mg 50 mg TID PO Last administered on 07/26/16 12:21; Admin Dose 50 MG; Start 07/24/16 at 13:00 Ceftriaxone Sodium (Rocephin) 50 ml @ 100 mls/hr Q24H IVPB Last administered on 07/26/16 16:34; Admin Dose 100 MLS/HR; Start 07/24/16 at 16:30 Terbinafine HCl (Lamisil) 250 mg BID PO Last administered on 07/26/16 08:31; Admin Dose 250 MG; Start 07/25/16 at 13:30; Stop 08/01/16 at 13:29 FERNANDA AVINA NP Jul 26, 2016 20:27
[2016-07-26] MEDS: ATORVASTATIN 40 MG TAB PO SCH (20:29)
[2016-07-26] MEDS: INSULIN GLARGINE [LANtus] 3 ML PEN SC SCH (20:34)
[2016-07-27] VITALS (9 sets, daily range): BP systolic 104–114; BP diastolic 52–57; PULSE 66–105; RESP 18–20
[2016-07-27] MEDS: ACCU-CHEK XX SCH (02:00)
[2016-07-27] MEDS: FUROSEMIDE 40 MG TAB PO SCH ×2 (06:15→18:00)
[2016-07-27 06:50] LABS: ADD SCAN DIFF NO
[2016-07-27 07:11] LABS: BASOPHILS % 0.1 % (0.0-2.0); HEMATOCRIT 33.5 % (37.0-47.0); HEMOGLOBIN 10.1 g/dl (12.0-16.0); LYMPHOCYTES # 1.1 10^3/ul (0.8-2.9); MEAN CORPUSCULAR HEMOGLOBIN 28.2 pg (29.0-33.0); MEAN CORPUSCULAR HGB CONC 30.1 g/dl (32.0-37.0); MEAN CORPUSCULAR VOLUME 93.6 fl (82.0-101.0); MEAN PLATELET VOLUME 10.6 fl (7.4-10.4); MONOCYTE # 0.5 10^3/ul (0.3-0.9); MONOCYTES % 5.6 % (0.0-11.0); NEUTROPHIL # 7.1 10^3/ul (1.6-7.5); NEUTROPHILS % 80.7 % (39.0-77.0); PLATELET COUNT 233 10^3/UL (140-415); RED BLOOD COUNT 3.58 10^6/ul (4.20-5.40); RED CELL DISTRIBUTION WIDTH 14.9 % (11.5-14.5); WHITE BLOOD COUNT 8.8 10^3/ul (4.8-10.8)
[2016-07-27 07:15] LABS: CALCIUM 8.7 mg/dl (8.4-10.2); CREATININE 1.18 mg/dl (0.44-1.00)
[2016-07-27] MEDS: ALBUTEROL/IPRATROPIUM (NEB) 3 ML AMP HHN SCH ×3 (08:03→16:46)
[2016-07-27] MEDS: PE/SHARK OIL/MO/PETROL 30 GM OINT PR SCH (09:00)
[2016-07-27] MEDS: SALMETEROL/FLUTICASONE 250/50 INHA INH SCH (09:00)
[2016-07-27] MEDS: METOPROLOL 50 MG TAB PO SCH (09:00)
[2016-07-27] MEDS: DIPHENHYDRAMINE 50 MG INJ IV SCH (09:00)
[2016-07-27] MEDS: INSULIN ASPART [NOVOLOG] 3 ML PEN SC SCH ×6 (09:57→17:55)
[2016-07-27] MEDS: NPH, HUMAN INSULIN ISOPHANE 3ML VIAL SC SCH (10:02)
[2016-07-27] MEDS: GABAPENTIN 400 MG CAP PO SCH (10:03)
[2016-07-27] MEDS: hydrOXYzine HCL 25 MG TAB PO SCH ×2 (10:04→13:00)
[2016-07-27] MEDS: APIXABAN 5 MG TABLET PO SCH (10:04)
[2016-07-27] MEDS: ASCORBIC ACID 500 MG TAB PO SCH (10:06)
[2016-07-27] MEDS: CHOLECALCIFEROL 1,000 UNIT TAB PO SCH (10:06)
[2016-07-27] MEDS: HYDROCORTISONE 1% 28.35 GM OINT TOP SCH (10:13)
[2016-07-27] MEDS: SPIRONOLACTONE 25 MG TAB PO SCH (10:23)
[2016-07-27] MEDS: TERBINAFINE 250 MG TAB PO SCH (10:28)
[2016-07-27] MEDS: PANTOPRAZOLE (EC) 40 MG TAB PO SCH (10:28)
[2016-07-27] MEDS: ZINC SULFATE 220 MG CAP PO SCH (10:29)
[2016-07-27] MEDS: LEVETIRACETAM 500 MG TAB PO SCH (10:30)
[2016-07-27] MEDS: LOSARTAN 25 MG TAB PO SCH (10:40)
--- NOTE | 2016-07-27 10:54 | PDOCDIS ---
Discharge Instructions CONDITION Patient Condition: Stable HOME CARE INSTRUCTIONS: Special Diet: carb control JANET CHRISTINE Jul 27, 2016 10:54
--- NOTE | 2016-07-27 11:35 | DS ---
DATE OF ADMISSION: 07/20/2016 DATE OF DISCHARGE: 07/27/2016 An 85-year-old female originally admitted on 07/20/2016, being discharged to nursing home facility on 07/27/2016. HOSPITAL COURSE: The patient came in initially with shortness of breath symptoms. She was diagnosed with acute hypoxic and hypercapnic respiratory failure and also was showing signs of acute on chronic diastolic heart failure as well. She was admitted and seen by multiple specialists during this hospital stay including cardiology team, pulmonary team, infectious disease team , wound nurse team as well. She was given diuretics by cardiology team, her shortness breath symptoms slowly improved. She was also given supplemental oxygen as needed and bronchodilator treatment. She was also treated for urinary tract infection as well and her atrial fibrillation was also treated by cardiology team as well. Her heart rate was stable by the time of discharge. Eventually, she was able to ambulate with the help of physical therapy and a front-wheeled walker. She was tolerating p.o. diet as well. Her cellulitis slowly improved. A wound care nurse also take care of the lower extremity cellulitis as well to help with the management of that. The patient will be discharged back to nursing home facility today in improved condition. DISCHARGE MEDICATIONS: She will be sent with the following medicines: 1. DuoNebs inhaled q.4 hours. 2. Eliquis 5 mg b.i.d. 3. Artificial tear drops in both eyes as needed daily. 4. Vitamin C 500 mg daily. 5. Lipitor 40 mg at bedtime. 6. Vitamin D 1000 units daily. 7. Benadryl 25 mg IV q.12 hours p.r.n. 8. Colace 200 mg at bedtime p.r.n. 9. Lasix 40 mg p.o. b.i.d. 10. Neurontin 400 mg b.i.d. 11. Hydralazine 10 mg IV q.6h. p.r.n. 12. Hydrocortisone applied topically b.i.d. 13. Atarax 50 mg p.o. t.i.d. 14. Aspart insulin sliding scale with meals 13 units. 15. Lantus 40 units subQ daily. 16. Keppra 375 mg b.i.d. 17. Ativan 0.5 mg IV q.6h. p.r.n. 18. Cozaar 25 mg b.i.d. 19. Metoprolol 50 mg b.i.d. 20. NPH 12 units subcutaneous b.i.d. 21. Zofran 4 mg IV q.4h. p.r.n. 22. Protonix 40 mg b.i.d. 23. Advair 250/50 inhaled b.i.d. 24. Aldactone 25 mg daily. 25. Lamisil 250 mg b.i.d. for 7 days. 26. Zinc sulfate 220 mg daily. 27. Clindamycin 300 mg p.o. q.i.d. for 5 days. She will need to follow up with primary care doctor in the clinic in the next 1 to 2 weeks. FINAL DIAGNOSES: 1. Shortness of breath secondary to acute hypoxic and hypercapnic respiratory failure, now improving. 2. [id number]-[id number] diastolic heart failure, improved. 3. Pulmonary hypertension. 4. Left lower extremity cellulitis, improved. 5. Urinary tract infection. 6. Atrial fibrillation, on Eliquis. 7. Essential hypertension. 8. Type 2 diabetes 9. Diabetic neuropathy. 10. Generalized skin rashes. Negative for scabies. She also had skin biopsy negative for scabies as well for skin rash. 11. Chronic obstructive pulmonary disease. 12. Seizure disorder. 13. Vitamin D deficiency. 14. Morbid obesity. 15. Prior history of stroke. Time spent discharging patient: 40 minutes. Dictated By: JANET BADILLO Conf#: [id number] DID#: [id number] MTDD
--- NOTE | 2016-07-27 13:18 | CONS ---
Date/Time of Note Date/Time of Note DATE: 07/27/16 TIME: 13:17 Assessment/Plan Assessment/Plan Additional Assessment/Plan Assessment recommendations; 1. Patient admitted for CHF exacerbation as well as UTI. 2. Clinically markedly improved. 3. History of CHF, hypertension, diabetes, and seizure disorder. Discontinue all antibiotics. Patient can be discharged home or to a nursing facility. Consultation Date/Type/Reason Admit Date/Time Jul 20, 2016 at 14:10 Initial Consult Date 07/21/16 Type of Consultation: Pulmonary 24 HR Interval Summary Free Text/Dictation Patient condition is stable. Remains awake alert. Denies any shortness of breath, wheezing, chest pain, sputum production. General exam; elderly lady, awake alert currently in no distress patient appears quite overweight. Exam/Review of Systems Vital Signs Vitals Vital Signs Date Time Temp Pulse Resp B/P Pulse Ox O2 Delivery O2 Flow Rate FiO2 07/27/16 12:00 68 07/27/16 11:52 97.7 20 104/52 95 07/27/16 08:03 Nasal Cannula 2.0 Intake and Output 07/26/16 07/26/16 07/27/16 15:00 23:00 07:00 Intake Total 1100 ml Output Total 2000 ml Balance -900 ml Exam HEENT exam is; supple neck, JVD difficult to see because of short neck. No thyromegaly. Pharynx is clear. Pupils are small bilaterally. No neck masses. No thyromegaly. Chest examination; clear to auscultation. S1-S2 audible, irregular rhythm. No murmurs. Abdomen examination; soft, protuberant. Nontender. Bowel sounds audible. Extremity exam; trace edema. [employer] examination; no focal deficit. Results Result Diagram: 07/27/16 0552 07/27/16 0552 Results 24 hrs Laboratory Tests Test 07/26/16 15:00 07/26/16 17:34 07/26/16 20:27 07/27/16 03:08 Vancomycin Level Trough 14.0 Bedside Glucose 255 H 205 107 Test 07/27/16 05:52 07/27/16 08:17 07/27/16 09:51 07/27/16 11:46 White Blood Count 8.8 Red Blood Count 3.58 L Hemoglobin 10.1 L Hematocrit 33.5 L Mean Corpuscular Volume 93.6 Mean Corpuscular Hemoglobin 28.2 L Mean Corpuscular Hemoglobin Concent 30.1 L Red Cell Distribution Width 14.9 H Platelet Count 233 Mean Platelet Volume 10.6 H Neutrophils % 80.7 H Lymphocytes % 13.0 L Monocytes % 5.6 Eosinophils % 0.0 Basophils % 0.1 Nucleated Red Blood Cells % 0.0 Neutrophils # 7.1 Lymphocytes # 1.1 Monocytes # 0.5 Eosinophils # 0.0 Basophils # 0.0 Nucleated Red Blood Cells # 0.0 Sodium Level 137 Potassium Level 4.0 Chloride Level 98 Carbon Dioxide Level 34 H Anion Gap 9 Blood Urea Nitrogen 54 H Creatinine 1.18 H Glucose Level 101 # Calcium Level 8.7 Bedside Glucose 104 232 H 130 Medications Medications Current Medications Lorazepam (Ativan) 0.5 mg Q6H PRN IV ANXIETY Last administered on 07/23/16 01: 24; Admin Dose 0.5 MG; Start 07/20/16 at 17:00 Eye Lubricant (Artificial Tears Oph) 1 drop DAILY PRN BOTH EYES DRY EYES; Start 07/20/16 at 17:00 Ascorbic Acid (Vitamin C) 500 mg DAILY PO Last administered on 07/27/16 10:06 ; Admin Dose 500 MG; Start 07/21/16 at 09:00 Atorvastatin Calcium (Lipitor) 40 mg HS PO Last administered on 07/26/16 20:29 ; Admin Dose 40 MG; Start 07/20/16 at 21:00 Docusate Sodium (Colace) 200 mg QHS PRN PO CONSTIPATION; Start 07/20/16 at 17: 00 Gabapentin (Neurontin) 400 mg BID PO Last administered on 07/27/16 10:03; Admin Dose 400 MG; Start 07/20/16 at 21:00 Levetiracetam (Keppra) 375 mg BID PO Last administered on 07/27/16 10:30; Admin Dose 375 MG; Start 07/20/16 at 21:00 Losartan Potassium (Cozaar) 25 mg BID PO Last administered on 07/27/16 10:40; Admin Dose 25 MG; Start 07/20/16 at 21:00 Metoprolol Tartrate (Lopressor) 50 mg BID PO Last administered on 07/26/16 20: 30; Admin Dose 50 MG; Start 07/20/16 at 21:00 Pantoprazole (Protonix Tab) 40 mg BID PO Last administered on 07/27/16 10:28; Admin Dose 40 MG; Start 07/20/16 at 21:00 Salmeterol Xinafoate/ Fluticasone (Advair 250/50 Diskus) 1 inh BID INH Last administered on 07/26/16 20:28; Admin Dose 1 INH; Start 07/20/16 at 21:00 Zinc Sulfate (Zinc Sulfate) 220 mg DAILY PO Last administered on 07/27/16 10: 29; Admin Dose 220 MG; Start 07/21/16 at 09:00 Diphenhydramine HCl (Benadryl) 25 mg Q12H IV Last administered on 07/26/16 20: 29; Admin Dose 25 MG; Start 07/20/16 at 21:00 Miscellaneous Information 1 ea NOTE XX ; Start 07/20/16 at 17:00 Glucose (Glutose) 15 gm Q15M PRN PO DECREASED GLUCOSE; Start 07/20/16 at 17:00 Glucose (Glutose) 22.5 gm Q15M PRN PO DECREASED GLUCOSE; Start 07/20/16 at 17: 00 Dextrose (D50w Syringe) 25 ml Q15M PRN IV DECREASED GLUCOSE; Start 07/20/16 at 17:00 Dextrose (D50w Syringe) 50 ml Q15M PRN IV DECREASED GLUCOSE; Start 07/20/16 at 17:00 Glucagon (Glucagen) 1 mg Q15M PRN IM DECREASED GLUCOSE; Start 07/20/16 at 17:00 Glucose (Glutose) 15 gm Q15M PRN BUCCAL DECREASED GLUCOSE; Start 07/20/16 at 17 :00 Hydralazine HCl (Apresoline) 10 mg Q6H PRN IV SBP>160; Start 07/20/16 at 17:30 Ondansetron HCl (Zofran Inj) 4 mg Q4H PRN IV NAUSEA AND/OR VOMITING Last administered on 07/20/16 18:57; Admin Dose 4 MG; Start 07/20/16 at 19:00 Cholecalciferol (Vitamin D) 1,000 unit DAILY PO Last administered on 07/27/16 10:06; Admin Dose 1,000 UNIT; Start 07/21/16 at 09:00 Insulin Glargine (Lantus) 40 unit DAILY@20 SC Last administered on 07/26/16 20 :34; Admin Dose 40 UNIT; Start 07/21/16 at 20:31 Insulin Human NPH (Humulin N) 12 unit BID@08,20 SC Last administered on 10:02; Admin Dose 12 UNIT; Start 07/21/16 at 20:33 Morphine Sulfate (morphine) 4 mg Q4H PRN IV Pain Last administered on 21:57; Admin Dose 4 MG; Start 07/22/16 at 14:30 Diagnostic Test (Pha) (Accu-Chek) 1 ea 02 XX Last administered on 07/27/16 02: 00; Admin Dose 1 EA; Start 07/23/16 at 02:00 Apixaban (Eliquis) 5 mg BID PO Last administered on 07/27/16 10:04; Admin Dose 5 MG; Start 07/23/16 at 09:30 Spironolactone (Aldactone) 25 mg DAILY PO Last administered on 07/27/16 10:23 ; Admin Dose 25 MG; Start 07/23/16 at 09:30 Hydrocortisone (Hydrocortisone 1% Oint) 1 applic BID TOP Last administered on 10:13; Admin Dose 1 APPLIC; Start 07/23/16 at 13:00 Phenyleph/Shark Oil/Min Oil/ Petrol 1 applic 1 applic DAILY FL Last administered on 07/27/16 09:00; Admin Dose 1 APPLIC; Start 07/23/16 at 14:00 Vancomycin HCl/ Sodium Chloride (Vancocin/NS) 250 ml @ 83.333 mls/ hr Q24H IVPB Last administered on 07/26/16 16:37; Admin Dose 83.333 MLS/HR; Start at 16:00 Hydroxyzine HCl 50 mg 50 mg TID PO Last administered on 07/27/16 10:04; Admin Dose 50 MG; Start 07/24/16 at 13:00 Ceftriaxone Sodium (Rocephin) 50 ml @ 100 mls/hr Q24H IVPB Last administered on 07/26/16 16:34; Admin Dose 100 MLS/HR; Start 07/24/16 at 16:30 Terbinafine HCl (Lamisil) 250 mg BID PO Last administered on 07/27/16 10:28; Admin Dose 250 MG; Start 07/25/16 at 13:30; Stop 08/01/16 at 13:29 Prednisone (Prednisone) 20 mg DAILY PO ; Start 07/28/16 at 09:00; Stop 07/30/16 at 09:00 SHUKRI WHITE Jul 27, 2016 13:18
--- NOTE | 2016-07-27 16:46 | CONS ---
Date/Time of Note Date/Time of Note DATE: 07/27/16 TIME: 16:37 Assessment/Plan Assessment/Plan Chief Complaint/Hosp Course ID PROGRESS NOTE TOTAL ABX DAY #8 => Vanco IV + Ceftriaxone s/p Cipro 24H INTERVAL SUMMARY * Resting/napping on supplemental O2 via NC, VSS, NAD -- awakens and requests "Agua" "Agua" * No clinical evidence of sepsis, no fevers, WBC normal, CXR without PNA, * Still has FC * BUEXt w/generalized edema, dark sun damaged + ecchymotic skin w/bumpy skin texture * BLEXT without edema, few scattered scratch lesions, no significant cellulitis PHYSICAL EXAMINATION: GENERAL: VSS, NAD, obese F, O2 via NC, no fevers HEENT: Unremarkable, sun damaged skin NECK: Supple, trach-> midline CHEST: Equal chest rise bilaterally, without dyspnea on observation HEART: Pulse RRR ABDOMEN: Soft, benign EXTREMITIES: Warm, dependent edema BUEXT, bumpy thick sun damaged skin BUEXT, BLEXT chronic venous stasis changes, skin scratch excoriations w/LLEXT cellulitis SKIN: Warm, dry ID ASSESSMENT: 85 yo F admitted with: 1. Polymicrobial GNR urinary tract infection=> Still has FC in place ? * URINE CULTURE Final Organism 1 K.PNEUMONIAE SSP PNEUMONIAE COLONY COUNT >100,000 CFU/ml Organism 2 PROTEUS MIRABILIS COLONY COUNT >100,000 CFU/ml 2. Status post acute hypoxemic respiratory failure secondary to congestive heart failure exacerbation. 3. Pulmonary hypertension. 4. Left lower extremity cellulitis= RESOLVED 5. Diabetes. 6. Onychomycosis -> Lamisil INVASIVES: * PIV ABX ALLERGIES: KNDA CURRENT ABX: DAY #8 => Vanco IV + Ceftriaxone => DC ABX TODAY s/p ID RECOMMENDATIONS: 1. DC Vanco & Ceftriaxone 2. Still has FC in place ? Does she need this ? 3. Cellulitis has resolved - may DC home when cleared by PMD OFF ABX . Problems: Consultation Date/Type/Reason Admit Date/Time Jul 20, 2016 at 14:10 Initial Consult Date 07/21/16 Type of Consultation: ID Exam/Review of Systems Vital Signs Vitals Vital Signs Date Time Temp Pulse Resp B/P Pulse Ox O2 Delivery O2 Flow Rate FiO2 07/27/16 15:40 97.7 20 111/56 94 07/27/16 13:58 65 Nasal Cannula 2.0 Intake and Output 07/26/16 07/26/16 07/27/16 15:00 23:00 07:00 Intake Total 1100 ml Output Total 2000 ml Balance -900 ml Results Result Diagram: 07/27/16 0552 07/27/16 0552 Results 24 hrs Laboratory Tests Test 07/26/16 17:34 07/26/16 20:27 07/27/16 03:08 07/27/16 05:52 Bedside Glucose 255 H 205 107 White Blood Count 8.8 Red Blood Count 3.58 L Hemoglobin 10.1 L Hematocrit 33.5 L Mean Corpuscular Volume 93.6 Mean Corpuscular Hemoglobin 28.2 L Mean Corpuscular Hemoglobin Concent 30.1 L Red Cell Distribution Width 14.9 H Platelet Count 233 Mean Platelet Volume 10.6 H Neutrophils % 80.7 H Lymphocytes % 13.0 L Monocytes % 5.6 Eosinophils % 0.0 Basophils % 0.1 Nucleated Red Blood Cells % 0.0 Neutrophils # 7.1 Lymphocytes # 1.1 Monocytes # 0.5 Eosinophils # 0.0 Basophils # 0.0 Nucleated Red Blood Cells # 0.0 Sodium Level 137 Potassium Level 4.0 Chloride Level 98 Carbon Dioxide Level 34 H Anion Gap 9 Blood Urea Nitrogen 54 H Creatinine 1.18 H Glucose Level 101 # Calcium Level 8.7 Test 07/27/16 08:17 07/27/16 09:51 07/27/16 11:46 Bedside Glucose 104 232 H 130 Medications Medications Current Medications Lorazepam (Ativan) 0.5 mg Q6H PRN IV ANXIETY Last administered on 07/23/16 01: 24; Admin Dose 0.5 MG; Start 07/20/16 at 17:00 Eye Lubricant (Artificial Tears Oph) 1 drop DAILY PRN BOTH EYES DRY EYES; Start 07/20/16 at 17:00 Ascorbic Acid (Vitamin C) 500 mg DAILY PO Last administered on 07/27/16 10:06 ; Admin Dose 500 MG; Start 07/21/16 at 09:00 Atorvastatin Calcium (Lipitor) 40 mg HS PO Last administered on 07/26/16 20:29 ; Admin Dose 40 MG; Start 07/20/16 at 21:00 Docusate Sodium (Colace) 200 mg QHS PRN PO CONSTIPATION; Start 07/20/16 at 17: 00 Gabapentin (Neurontin) 400 mg BID PO Last administered on 07/27/16 10:03; Admin Dose 400 MG; Start 07/20/16 at 21:00 Levetiracetam (Keppra) 375 mg BID PO Last administered on 07/27/16 10:30; Admin Dose 375 MG; Start 07/20/16 at 21:00 Losartan Potassium (Cozaar) 25 mg BID PO Last administered on 07/27/16 10:40; Admin Dose 25 MG; Start 07/20/16 at 21:00 Metoprolol Tartrate (Lopressor) 50 mg BID PO Last administered on 07/26/16 20: 30; Admin Dose 50 MG; Start 07/20/16 at 21:00 Pantoprazole (Protonix Tab) 40 mg BID PO Last administered on 07/27/16 10:28; Admin Dose 40 MG; Start 07/20/16 at 21:00 Salmeterol Xinafoate/ Fluticasone (Advair 250/50 Diskus) 1 inh BID INH Last administered on 07/26/16 20:28; Admin Dose 1 INH; Start 07/20/16 at 21:00 Zinc Sulfate (Zinc Sulfate) 220 mg DAILY PO Last administered on 07/27/16 10: 29; Admin Dose 220 MG; Start 07/21/16 at 09:00 Diphenhydramine HCl (Benadryl) 25 mg Q12H IV Last administered on 07/26/16 20: 29; Admin Dose 25 MG; Start 07/20/16 at 21:00 Miscellaneous Information 1 ea NOTE XX ; Start 07/20/16 at 17:00 Glucose (Glutose) 15 gm Q15M PRN PO DECREASED GLUCOSE; Start 07/20/16 at 17:00 Glucose (Glutose) 22.5 gm Q15M PRN PO DECREASED GLUCOSE; Start 07/20/16 at 17: 00 Dextrose (D50w Syringe) 25 ml Q15M PRN IV DECREASED GLUCOSE; Start 07/20/16 at 17:00 Dextrose (D50w Syringe) 50 ml Q15M PRN IV DECREASED GLUCOSE; Start 07/20/16 at 17:00 Glucagon (Glucagen) 1 mg Q15M PRN IM DECREASED GLUCOSE; Start 07/20/16 at 17:00 Glucose (Glutose) 15 gm Q15M PRN BUCCAL DECREASED GLUCOSE; Start 07/20/16 at 17 :00 Hydralazine HCl (Apresoline) 10 mg Q6H PRN IV SBP>160; Start 07/20/16 at 17:30 Ondansetron HCl (Zofran Inj) 4 mg Q4H PRN IV NAUSEA AND/OR VOMITING Last administered on 07/20/16 18:57; Admin Dose 4 MG; Start 07/20/16 at 19:00 Cholecalciferol (Vitamin D) 1,000 unit DAILY PO Last administered on 07/27/16 10:06; Admin Dose 1,000 UNIT; Start 07/21/16 at 09:00 Insulin Glargine (Lantus) 40 unit DAILY@20 SC Last administered on 07/26/16 20 :34; Admin Dose 40 UNIT; Start 07/21/16 at 20:31 Insulin Human NPH (Humulin N) 12 unit BID@08,20 SC Last administered on 10:02; Admin Dose 12 UNIT; Start 07/21/16 at 20:33 Morphine Sulfate (morphine) 4 mg Q4H PRN IV Pain Last administered on 21:57; Admin Dose 4 MG; Start 07/22/16 at 14:30 Diagnostic Test (Pha) (Accu-Chek) 1 ea 02 XX Last administered on 07/27/16 02: 00; Admin Dose 1 EA; Start 07/23/16 at 02:00 Apixaban (Eliquis) 5 mg BID PO Last administered on 07/27/16 10:04; Admin Dose 5 MG; Start 07/23/16 at 09:30 Spironolactone (Aldactone) 25 mg DAILY PO Last administered on 07/27/16 10:23 ; Admin Dose 25 MG; Start 07/23/16 at 09:30 Hydrocortisone (Hydrocortisone 1% Oint) 1 applic BID TOP Last administered on 10:13; Admin Dose 1 APPLIC; Start 07/23/16 at 13:00 Phenyleph/Shark Oil/Min Oil/Petrol (Formulation R Oint) 1 applic DAILY [place] Last administered on 07/27/16 09:00; Admin Dose 1 APPLIC; Start 07/23/16 at 14:00 Hydroxyzine HCl (Atarax) 50 mg TID PO Last administered on 07/27/16 10:04; Admin Dose 50 MG; Start 07/24/16 at 13:00 Terbinafine HCl (Lamisil) 250 mg BID PO Last administered on 07/27/16 10:28; Admin Dose 250 MG; Start 07/25/16 at 13:30; Stop 08/01/16 at 13:29 FERNANDA AVINA NP Jul 27, 2016 16:46
[2016-07-27] MEDS: GLUCOSE GEL 15 GRAM TUBE PO PRN ×2 (16:57→17:23)
--- NOTE | 2016-07-27 18:03 | PN ---
DATE: 07/27/2016 CARDIOLOGY FOLLOWUP SUBJECTIVE: No new cardiac event. No chest pain or pressure. Breathing has remained stable. Leg has significantly improved. Remains in atrial fibrillation. Heart rate has remained stable. Rhyth m strip was reviewed and discussed with the staff. MEDICATIONS: Reviewed. PHYSICAL EXAMINATION: VITAL SIGNS: Temperature 97.7, heart rate 65, blood pressure 104/52, respiration rate of 18, satura ting 95%. HEENT: Normocephalic, atraumatic, obese, in no acute distress. EYES: Pupils are normal. CARDIOVASCULAR: Irregularly irregular. Systolic murmur. PULMONARY: With no wheezes anteriorly. No recurrence rhonchi. GASTROINTESTINAL: Obese, soft. EXTREMITIES: Without trivial lower extremity edema. NEUROLOGIC: Awake. PSYCHIATRIC: Calm. LABORATORY: Sodium 137, potassium 4, BUN of 64, creatinine 1.18, glucose 101. ASSESSMENT AND PLAN: 1. Congestive heart failure, acute on chronic, currently stable, compensated. 2. Atrial fibrillation, chronic lower extremity edema and cellulitis has significantly improved and resolved now. 3. Diabetes. 4. Chronic obstructive pulmonary disease. 5. Obstructive sleep apnea. 6. Pulmonary hypertension. RECOMMENDATIONS: We will continue with the current cardiac care. Discharge planning is in process. Continue on anticoagulation. Dictated By: ENEDINA RONQUILLO/GINGER Conf#: [id number] DID#: [id number] CC: JANET CHRISTINE;*EndCC*
[2016-07-28] MEDS ORDERED: predniSONE 20 MG TAB PO SCH (09:00)
== END 2016-07-27 19:46 | DRG 291 ==
LOC: E/R 10:17 → TEL 14:10
PROVIDERS: ADMIT Family Medicine; ATTEND Family Medicine
DX: I11.0 Hypertensive heart disease with heart failure (principal); J96.01 Acute respiratory failure with hypoxia; J96.02 Acute respiratory failure with hypercapnia; J44.1 Chronic obstructive pulmonary disease with (acute) exacerbation; E11.40 Type 2 diabetes mellitus with diabetic neuropathy, unspecified; I27.2 Other secondary pulmonary hypertension; L03.116 Cellulitis of left lower limb; I48.2 Chronic atrial fibrillation; B35.1 Tinea unguium; Z68.42 Body mass index [BMI] 45.0-49.9, adult; N39.0 Urinary tract infection, site not specified; I50.33 Acute on chronic diastolic (congestive) heart failure; E66.01 Morbid (severe) obesity due to excess calories; Z79.01 Long term (current) use of anticoagulants; G40.909 Epilepsy, unspecified, not intractable, without status epilepticus; Z86.73 Personal history of transient ischemic attack (TIA), and cerebral infarction without residual deficits; E78.5 Hyperlipidemia, unspecified; G47.33 Obstructive sleep apnea (adult) (pediatric); R21 Rash and other nonspecific skin eruption; D64.9 Anemia, unspecified; Z96.653 Presence of artificial knee joint, bilateral; E55.9 Vitamin D deficiency, unspecified; B96.89 Other specified bacterial agents as the cause of diseases classified elsewhere
CPT/HCPCS: 36415; 36600; 71010; 74176; 80048; 80053; 80061; 80162; 80202; 81001; 81003; 82550; 82553; 82652; 82803; 82962; 83036; 83735; 83880; 84100; 84439; 84443; 84484; 85025; 85610; 85730; 87040; 87086; 88300; 93005; 93306; 93970; 94640; 94664; 96374; 97110; 97163; 97530; J0692; J0696; J1200; J1815; J1940; J2060; J2270; J2405; J2920; J3370; J7040; J7050